=== PATIENT | male | born 1950 | race Caucasian/White ===

== ENCOUNTER 2018-12-27 16:52 | Emergency (ER) | payer BC ==
--- OUTSIDE RECORDS SUMMARY | 2018-12-27 16:54 | XMS REPORT | Clinical Summary ---
:1950 Author Organization [facility] Address [address] [place] [address] Care Team Providers Name Role Phone Aryan Samuels MD Primary Care Provider Allergies No Known Allergies Medications Medication Sig Dispensed Refills Start Date End Date Status ezetimibe (ZETIA) Take 10 mg by 0 Active 10 mg tablet mouth daily. olmesartan Take 40 mg by 0 Active (BENICAR) 40 MG mouth daily. tablet simvastatin Take 80 mg by 0 Active (ZOCOR) 80 MG mouth nightly. tablet FLUCELVAX QUAD INJECT BY 0 06/05/2017 Active 4457-9225 60 mcg PHARMACIST LEFT (15 mcg x 4)/0.5 ARM mL suspension vaccine metoprolol TAKE 1 TABLET BY 180 tablet 3 08/10/2018 Active tartrate MOUTH 2 TIMES A (LOPRESSOR) 50 mg DAY. tablet clopidogrel TAKE 1 TABLET BY 90 tablet 1 08/10/2018 Active (PLAVIX) 75 mg MOUTH EVERY DAY tablet clopidogrel Take 1 tablet 90 tablet 3 02/04/2017 (PLAVIX) 75 mg (75 mg total) by 8 tabletIndications mouth daily. : PAD (peripheral artery disease) (HCC), Abdominal aortic aneurysm (AAA) without rupture (HCC) metoprolol Take 1 tablet 180 tablet 3 08/05/2017 Discontinued tartrate (50 mg total) by 8 (LOPRESSOR) 50 mg mouth 2 (two) tablet times a day. clopidogrel Take 1 tablet 90 tablet 1 02/17/2018 Discontinued (PLAVIX) 75 mg (75 mg total) by 8 tablet mouth daily. Active Problems Problem Noted Date Abdominal aortic aneurysm (AAA) without rupture 02/04/2017 Essential hypertension 02/04/2017 CAD in [place] artery 02/04/2017 PAD (peripheral artery disease) 02/04/2017 Encounters Date Type Specialty Care Team Description 08/10/2018 Refill Cardiology Oscar Bautista MD Med Refill 08/04/2018 Office Visit Cardiology Oscar Bautista MD PAD (peripheral artery disease) (HCC) (Primary Dx) 02/17/2018 Orders Only Cardiology Twila Pack MA after 12/26/2017 Family History Relation Name Status Comments Father Mother Social History Tobacco Use Types Packs/Day Years Used Date Current Some Day Smoker Smokeless Tobacco: Never Used Alcohol Use Drinks/Week oz/Week Comments No Sex Assigned at Date Recorded Not on file Job Start Date Occupation Industry Not on file Not on file Not on file Travel History Travel Start Travel End No recent travel history available. Last Filed Vital Signs Vital Sign Reading Time Taken Blood Pressure 150/70 08/04/2018 11:31 AM [employer] Pulse 72 08/04/2018 11:31 AM [employer] Temperature - - Respiratory Rate - - Oxygen Saturation - - Inhaled Oxygen Concentration - - Weight 93.9 kg (207 lb) 08/04/2018 11:31 AM [employer] Height 177.8 cm (5' 10") 08/04/2018 11:31 AM [employer] Body Mass Index 29.7 08/04/2018 11:31 AM [employer] Plan of Treatment Date Type Specialty Care Team Description 08/10/2019 Office Visit Cardiology Oscar Bautista MD [address] [address] Health Maintenance Due Date Last Done Comments COLON CANCER SCREENING 2000 SHINGLES VACCINES (#1) 2000 65+ PNEUMOCOCCAL VACCINE (1 of 2 - PCV13) 12/02/2015 PNEUMOCOCCAL POLYSACCHARIDE VACCINE AGE 65 AND OVER 12/02/2015 INFLUENZA VACCINE 03/25/2019 Procedures Procedure Name Priority Date/Time Associated Diagnosis Comments ECG 12-LEAD Routine 08/04/2018 11:32 AM PAD (peripheral Results for this [employer] artery disease) (HCC) procedure are in the results section. after 12/26/2017 Results ECG 12 lead (08/04/2018 11:32 AM [employer]) Ventricular rate 72 [facility] Atrial rate 72 [facility] ND interval 168 [facility] QRSD interval 90 [facility] QT interval 402 [facility] QTC interval 440 [facility] P axis 1 41 [facility] QRS axis 1 98 [facility] M[facility] T wave axis 63 [facility] M[facility] EKG impression Normal sinus rhythm-Rightward axis-Borderline [facility] M[facility] ECG-In automated comparison with ECG of 04-FEB-2017 09:23,-No significant change was found- Narrative Performed At Performing Organization Address City/State/Zipcode Phone Number [facility] [address] [place] [address] after 12/26/2017 Insurance Payer Benefit Plan / Group Subscriber ID Type Phone Address BCBS BCBS CHOICE PPO/FEDERAL EMPL PPO xxxxxxxxxxxx PPO Advance Directives Patient has advance care planning documents on file. For more information, please contact:Steven Houser[address] [place] [address]
[2018-12-27 17:50] LABS: Absolute Lymphocytes (CBC) 1.5 K/uL (0.7-4.9); Absolute Monocytes 0.7 K/uL (0.1-1.3); Absolute Neutrophil 6.6 K/uL (1.8-8.0); Basophils % 0.4 % (0-1.3); Eosinophils % 2.1 % (0-4.4); Hematocrit 40.8 % (39.6-49.0); Lymphocytes % 16.7 % (15.3-44.8); MPV 8.6 fL (7.6-11.3); Monocytes % 8.2 % (3.3-12.3); RBC Red Blood Cell Count 4.47 M/uL (4.33-5.43)
[2018-12-27 18:02] LABS: Protime INR 1.02
[2018-12-27] MEDS ORDERED: NA CHLORIDE 0.9% 1,000 ML ONE (18:02)
[2018-12-27] MEDS ORDERED: FAMOTIDINE 20 MG/2 ML VIAL IV ONE (18:02)
[2018-12-27 18:09] LABS: ALT/SGPT 31 U/L (12-78); AST/SGOT 24 U/L (15-37); Albumin 3.7 g/dL (3.4-5.0); Alkaline Phosphatase 70 U/L (45-117); BUN Blood Urea Nitrogen 17 mg/dL (7-18); Bicarbonate 25 mmol/L (21-32); Bilirubin Direct 0.2 mg/dL (0-0.2); Bilirubin Total 0.8 mg/dL (0.2-1.0); Glucose Level 116 mg/dL (74-106); Lipase 185 U/L (73-393); Magnesium 1.8 mg/dL (1.8-2.4); NT PRO-BNP 91 pg/mL (<125); Potassium 3.9 mmol/L (3.5-5.1); Protein, Total 7.3 g/dL (6.4-8.2); Sodium Level 140 mmol/L (136-145); Troponin (Emerg Dept Use Only) < 0.02 ng/mL (0.0-0.045)
--- NOTE | 2018-12-27 18:45 | ER ---
Nurse's Notes [facility] Name: Km Lizarraga Age: 68 yrs Sex: Male : 1950 Arrival Date: 12/27/2018 Time: 16:53 Bed 5 Private MD: Booker Samuels C Diagnosis: Abdominal tenderness;Functional dyspepsia;Cholelithiasis Presentation: 12/27 17:05 Presenting complaint: Patient states: "I was sitting on the patio watching the [place] aj1 and I started to have pain right here (points to epigastric area) then the pain got worse and worse and I started sweating" Patient denies shortness of breath, but his states that he looked short of breath at the time. Denies palpitations. Transition of care: patient was not received from another setting of care. Onset of symptoms was December 27, 2018 at 16:30. Risk Assessment: Do you want to hurt yourself or someone else? Patient reports no desire to harm self or others. Initial Sepsis Screen: Does the patient meet any 2 criteria? No. Patient's initial sepsis screen is negative. Does the patient have a suspected source of infection? No. Patient's initial sepsis screen is negative. Care prior to arrival: None. 17:05 Method Of Arrival: Ambulatory aj1 17:05 Acuity: RAMSES 2 aj1 Triage Assessment: 17:08 General: Appears in no apparent distress. comfortable, Behavior is calm, cooperative, aj1 appropriate for age. Pain: Complains of pain in epigastric area Pain does not radiate. Pain currently is 1 out of 10 on a pain scale. Neuro: Level of Consciousness is awake, alert, obeys commands. Cardiovascular: Patient's skin is warm and dry. Respiratory: Airway is patent Respiratory effort is even, unlabored, Respiratory pattern is regular, symmetrical. Historical: - Allergies: 17:08 No Known Allergies; aj1 - PMHx: 17:08 Hypertension; Hyperlipidemia; stents in leg; aj1 - Immunization history:: Flu vaccine is up to date. - Social history:: Smoking status: Patient uses tobacco products, smokes two packs cigarettes per day. - Ebola Screening: : Patient denies travel to an Ebola-affected area in the 21 days before illness onset. - Family history:: not pertinent. Screenin:24 Abuse screen: Denies threats or abuse. Nutritional screening: No deficits noted. ae3 Tuberculosis screening: No symptoms or risk factors identified. Fall Risk None identified. Assessment: 17:15 General: Appears in no apparent distress. comfortable, unkempt, Behavior is calm, ae3 cooperative. Pain: Denies pain. Complains of pain in epigastric area. Neuro: Level of Consciousness is awake, alert, obeys commands, Oriented to person, place, time, situation, Appropriate for age Patient states he no longer has pain but the pain was "very unusual for me". . Cardiovascular: Patient's skin is warm and dry. 17:15 Respiratory: Airway is patent Respiratory effort is even, unlabored, Respiratory ae3 pattern is regular, symmetrical. GI: Abdomen is round distended, Bowel sounds present X 4 quads. Abd is soft and non tender X 4 quads. GI: Patient currently denies bloody stool, constipation, diarrhea, nausea. : No signs and/or symptoms were reported regarding the genitourinary system. EENT: wears glasses.. Derm: Skin is dry, Skin temperature is warm. Musculoskeletal: No signs and/or symptoms reported regarding the musculoskeletal system. 17:55 Reassessment: Buttonhole Maker at bedside. ae3 Vital Signs: 17:08 BP 135 / 86; Pulse 82; Resp 18; Temp 98.3; Pulse Ox 100% on R/A; Weight 90.72 kg (R); aj1 Height 5 ft. 10 in. (177.80 cm) (R); 18:28 BP 142 / 70; Pulse 76; Resp 22; Pulse Ox 93% on R/A; ae3 17:08 Body Mass Index 28.70 (90.72 kg, 177.80 cm) aj1 ED Course: 16:53 Patient arrived in ED. as 16:53 Booker Samuels MD is Private Physician. as 17:07 Triage completed. aj1 17:08 Arm band placed on Patient placed in an exam room. aj1 17:10 Brad Tracey MD is Attending Physician. [facility] 17:30 Inserted saline lock: 20 gauge in right antecubital area, using aseptic technique. ae3 Blood collected. 17:40 XRAY Chest (1 view) In Process Unspecified. EDMS 17:46 Bed in low position. Call light in reach. Side rails up X 1. Adult w/ patient. Cardiac ae3 monitor on. Pulse ox on. NIBP on. Pillow given. 18:00 Ultrasound completed. Patient tolerated well. Notified ED Physician wandy. sg3 18:43 Booker Samuels MD is Referral Physician. chuck 18:43 Mary Jo Linares MD is Referral Physician. chuck 18:44 Referral Physician role handed off by Mary Jo Linares MD chuck 18:44 Cheko Fleming MD is Referral Physician. chuck 19:16 No provider procedures requiring assistance completed. IV discontinued, intact, ae3 bleeding controlled, No redness/swelling at site. Pressure dressing applied. 19:18 US Abdomen Limited In Process Unspecified. EDMS Administered Medications: Discontinued: NS 0.9% 1000 ml IV at 125 ml/hr continuous 17:54 Drug: NS 0.9% 1000 ml Route: IV; Rate: 125 ml/hr; Site: right antecubital; ae3 19:18 Follow up: Response: No adverse reaction; IV Status: Order to discontinue infusion; IV ae3 Intake: 300ml 17:55 Drug: Pepcid 20 mg Route: IVP; Site: right antecubital; ae3 18:30 Follow up: Response: No adverse reaction ae3 Intake: 19:18 IV: 300ml; Total: 300ml. ae3 Outcome: 18:44 Discharge ordered by . chuck 19:17 Discharged to home ambulatory, with significant other. ae3 19:17 Condition: stable 19:17 Discharge instructions given to patient, significant other, Instructed on discharge instructions, follow up and referral plans. Demonstrated understanding of instructions, Prescriptions given X 1. 19:17 Patient left the ED. ae3 Signatures: Dispatcher [employer] EDCarly Delgadillo RN RN aj1 Brad Tracey MD MD cha Martinez, Amelia as Godinez, Dorothy sg3 Iqra Ritchie ae3 Corrections: (The following items were deleted from the chart) 18:21 17:15 Cardiovascular: ae3 ae3
--- NOTE | 2018-12-27 18:46 | EDPHYS ---
Physician Documentation [facility] Name: Km Lizarraga Age: 68 yrs Sex: Male : 1950 Arrival Date: 12/27/2018 Time: 16:53 Bed 5 Private MD: Booker Samuels C ED Physician Brad Tracey HPI: 12/27 17:30 This 68 yrs old Male presents to ER via Ambulatory with complaints of chuck Epigastric Pain. 17:30 The patient presents with abdominal pain in the epigastric area. Onset: The chuck symptoms/episode began/occurred just prior to arrival, today. The symptoms do not radiate. Associated signs and symptoms: none. The symptoms are described as constant, crampy. Modifying factors: The symptoms are alleviated by nothing, the symptoms are aggravated by nothing. Severity of pain: At its worst the pain was moderate in the emergency department the pain has resolved and did so just prior to arrival. The patient has not experienced similar symptoms in the past. Historical: - Allergies: 17:08 No Known Allergies; aj1 - PMHx: 17:08 Hypertension; Hyperlipidemia; stents in leg; aj1 - Immunization history:: Flu vaccine is up to date. - Social history:: Smoking status: Patient uses tobacco products, smokes two packs cigarettes per day. - Ebola Screening: : Patient denies travel to an Ebola-affected area in the 21 days before illness onset. - Family history:: not pertinent. ROS: 17:30 Constitutional: Negative for fever, chills, and weight loss, Eyes: Negative for injury, chuck pain, redness, and discharge, ENT: Negative for injury, pain, and discharge, Neck: Negative for injury, pain, and swelling, Cardiovascular: Negative for chest pain, palpitations, and edema, Respiratory: Negative for shortness of breath, cough, wheezing, and pleuritic chest pain, Back: Negative for injury and pain, : Negative for injury, bleeding, discharge, and swelling, MS/Extremity: Negative for injury and deformity, Skin: Negative for injury, rash, and discoloration, Neuro: Negative for headache, weakness, numbness, tingling, and seizure, Psych: Negative for depression, anxiety, suicide ideation, homicidal ideation, and hallucinations, Allergy/Immunology: Negative for hives, rash, and allergies, Endocrine: Negative for neck swelling, polydipsia, polyuria, polyphagia, and marked weight changes, Hematologic/Lymphatic: Negative for swollen nodes, abnormal bleeding, and unusual bruising. 17:30 Abdomen/GI: Positive for abdominal pain, of the epigastric area. Exam: 17:30 Constitutional: This is a well developed, well nourished patient who is awake, alert, chuck and in no acute distress. Head/Face: Normocephalic, atraumatic. Eyes: Pupils equal round and reactive to light, extra-ocular motions intact. Lids and lashes normal. Conjunctiva and sclera are non-icteric and not injected. Cornea within normal limits. Periorbital areas with no swelling, redness, or edema. ENT: Nares patent. No nasal discharge, no septal abnormalities noted. Tympanic membranes are normal and external auditory canals are clear. Oropharynx with no redness, swelling, or masses, exudates, or evidence of obstruction, uvula midline. Mucous membranes moist. Neck: Trachea midline, no thyromegaly or masses palpated, and no cervical lymphadenopathy. Supple, full range of motion without nuchal rigidity, or vertebral point tenderness. No Meningismus. Chest/axilla: Normal chest wall appearance and motion. Nontender with no deformity. No lesions are appreciated. Cardiovascular: Regular rate and rhythm with a normal S1 and S2. No gallops, murmurs, or rubs. Normal PMI, no JVD. No pulse deficits. Respiratory: Lungs have equal breath sounds bilaterally, clear to auscultation and percussion. No rales, rhonchi or wheezes noted. No increased work of breathing, no retractions or nasal flaring. Abdomen/GI: Soft, non-tender, with normal bowel sounds. No distension or tympany. No guarding or rebound. No evidence of tenderness throughout. Back: No spinal tenderness. No costovertebral tenderness. Full range of motion. Male : Normal genitalia with no discharge or lesions. Skin: Warm, dry with normal turgor. Normal color with no rashes, no lesions, and no evidence of cellulitis. MS/ Extremity: Pulses equal, no cyanosis. Neurovascular intact. Full, normal range of motion. Neuro: Awake and alert, GCS 15, oriented to person, place, time, and situation. Cranial nerves II-XII grossly intact. Motor strength 5/5 in all extremities. Sensory grossly intact. Cerebellar exam normal. Normal gait. Psych: Awake, alert, with orientation to person, place and time. Behavior, mood, and affect are within normal limits. Vital Signs: 17:08 BP 135 / 86; Pulse 82; Resp 18; Temp 98.3; Pulse Ox 100% on R/A; Weight 90.72 kg (R); aj1 Height 5 ft. 10 in. (177.80 cm) (R); 18:28 BP 142 / 70; Pulse 76; Resp 22; Pulse Ox 93% on R/A; ae3 17:08 Body Mass Index 28.70 (90.72 kg, 177.80 cm) aj1 MDM: 17:10 Patient medically screened. [facility] 17:32 Data reviewed: vital signs, nurses notes, lab test result(s), EKG, radiologic studies, [facility] CT scan, plain films, ultrasound. 12/27 17:15 Order name: Basic Metabolic Panel; Complete Time: 18:10 [facility] 12/27 17:15 Order name: CBC with Diff; Complete Time: 18:09 [facility] 12/27 17:15 Order name: LFT's; Complete Time: 18:10 [facility] 12/27 17:15 Order name: Magnesium; Complete Time: 18:10 [facility] 12/27 17:15 Order name: NT PRO-BNP; Complete Time: 18:10 [facility] 12/27 17:15 Order name: PT-INR; Complete Time: 18:09 [facility] 12/27 17:15 Order name: Troponin (emerg Dept Use Only); Complete Time: 18:10 [facility] 12/27 17:15 Order name: XRAY Chest (1 view) [facility] 12/27 17:15 Order name: EKG; Complete Time: 17:16 [facility] 12/27 17:15 Order name: Cardiac monitoring; Complete Time: 17:15 [facility] 12/27 17:15 Order name: Lipase; Complete Time: 18:10 [facility] 12/27 17:30 Order name: US Abdomen Limited [facility] 12/27 17:15 Order name: EKG - Nurse/Tech; Complete Time: 17:15 [facility] 12/27 17:15 Order name: IV Saline Lock; Complete Time: 17:45 [facility] 12/27 17:15 Order name: Labs collected and sent; Complete Time: 17:45 [facility] 12/27 17:15 Order name: O2 Per Protocol; Complete Time: 17:16 [facility] 12/27 17:15 Order name: O2 Sat Monitoring; Complete Time: 17:16 [facility] 12/27 17:15 Order name: Urine Dipstick-Ancillary (obtain specimen) chuck Administered Medications: Discontinued: NS 0.9% 1000 ml IV at 125 ml/hr continuous 17:54 Drug: NS 0.9% 1000 ml Route: IV; Rate: 125 ml/hr; Site: right antecubital; ae3 19:18 Follow up: Response: No adverse reaction; IV Status: Order to discontinue infusion; IV ae3 Intake: 300ml 17:55 Drug: Pepcid 20 mg Route: IVP; Site: right antecubital; ae3 18:30 Follow up: Response: No adverse reaction ae3 Disposition: 12/27/18 18:44 Discharged to Home. Impression: Abdominal tenderness, Functional dyspepsia, Cholelithiasis. - Condition is Stable. - Discharge Instructions: Abdominal Pain, Adult, Cholelithiasis, Cholelithiasis, [id number], Abdominal Pain, Adult, [id number]. - Prescriptions for Pepcid 20 mg Oral Tablet - take 1 tablet by ORAL route every 12 hours for 10 days; 20 tablet. - Medication Reconciliation Form, Thank You Letter, Antibiotic Education, Prescription Opioid Use form. - Follow up: Booker Samuels; When: 2 - 3 days; Reason: Recheck today's complaints, Continuance of care, Re-evaluation by your physician. Follow up: ; When: 2 - 3 days; Reason: Recheck today's complaints, Continuance of care, Re-evaluation by your physician. Follow up: Cheko Fleming MD; When: 2 - 3 days; Reason: Recheck today's complaints, Re-evaluation by your physician. - Problem is new. - Symptoms have improved. Signatures: Dispatcher [employer] EDCarly Delgadillo RN RN aj1 Anderson, Corey, MD MD cha Elliot, Andie ae3 Corrections: (The following items were deleted from the chart) 18:44 18:44 12/27/2018 18:44 Discharged to Home. Impression: Abdominal tenderness; Functional chuck dyspepsia; Cholelithiasis. Condition is Stable. Discharge Instructions: Abdominal Pain, Adult, Abdominal Pain, Adult, [id number]. Prescriptions for Pepcid 20 mg Oral Tablet - take 1 tablet by ORAL route every 12 hours for 10 days; 20 tablet. and Forms are Medication Reconciliation Form, Thank You Letter, Antibiotic Education, Prescription Opioid Use. Follow up: Booker Samuels; When: 2 - 3 days; Reason: Recheck today's complaints, Continuance of care, Re-evaluation by your physician. Follow up: Mary Jo Linares; When: 2 - 3 days; Reason: Recheck today's complaints, Continuance of care, Re-evaluation by your physician. Problem is new. Symptoms have improved. chuck 19:17 18:44 12/27/2018 18:44 Discharged to Home. Impression: Abdominal tenderness; Functional ae3 dyspepsia; Cholelithiasis. Condition is Stable. Discharge Instructions: Abdominal Pain, Adult, Abdominal Pain, Adult, [id number]. Prescriptions for Pepcid 20 mg Oral Tablet - take 1 tablet by ORAL route every 12 hours for 10 days; 20 tablet. and Forms are Medication Reconciliation Form, Thank You Letter, Antibiotic Education, Prescription Opioid Use. Follow up: Booker Samuels; When: 2 - 3 days; Reason: Recheck today's complaints, Continuance of care, Re-evaluation by your physician. Follow up: Cheko Fleming; When: 2 - 3 days; Reason: Recheck today's complaints, Re-evaluation by your physician. Problem is new. Symptoms have improved. chuck
--- NOTE | 2018-12-27 19:10 | RAD REPORT ---
EXAM DESCRIPTION: RAD - Chest Single View - 12/27/2018 5:40 pm CLINICAL HISTORY: Chest pain, epigastric pain COMPARISON: November 2017 TECHNIQUE: AP portable chest image was obtained 1736 hour . FINDINGS: No acute focal lung parenchymal process. Interstitial markings are mildly prominent but no t clearly different. Heart and vasculature are normal. No measurable pleural effusion and no pneumoth orax. No acute bony abnormality seen. No acute aortic findings suspected. IMPRESSION: No acute cardiopulmonary process. Chest findings are not clearly different from November 2017.
--- NOTE | 2018-12-27 19:56 | RAD REPORT ---
EXAM DESCRIPTION: US - Abdomen Exam Limited - 12/27/2018 7:19 pm CLINICAL HISTORY: Abdominal pain COMPARISON: Ultrasound study May 2013 FINDINGS: No normal fluid-filled gallbladder is identified. Patient indicates that he is not undergo ne a cholecystectomy. Multiple gallstones are seen on the 2013 study. Echogenic foci with dense poste rior acoustic shadowing seen in the gallbladder fossa. Patient most likely has a contracted or partia lly filled gallbladder filled with multiple gallstones. No pericholecystic fluid. Common bile duct is normal with no common duct stone identified. IMPRESSION: Contracted or partially filled gallbladder filled with gallstones. No wall thickening, pericholecystic fluid or biliary abnormality.
--- NOTE | 2018-12-28 08:47 | EKG ---
Test Date: 2018-12-27 Test Time: 17:15:59 Special Programs Director: BRENDA MEASUREMENT RESULTS: Intervals: Rate: 85 MA: 164 QRSD: 86 QT: 380 QTc: 452 [place]: P: -6 MA: 164 QRS: 79 T: 38 INTERPRETIVE STATEMENTS: Normal sinus rhythm Normal ECG Compared to ECG 06/28/2015 13:54:19 No significant changes Electronically Signed On 12-28-18 08:46:30 CDT by Jerardo Donis
== END 2018-12-27 19:17 | disposition home or self-care (01) ==
LOC: ER 16:52
DX: K80.20 Calculus of gallbladder without cholecystitis without obstruction (principal); K30 Functional dyspepsia; F17.210 Nicotine dependence, cigarettes, uncomplicated
CPT/HCPCS: 36415; 71045; 76705; 80048; 80076; 83690; 83735; 83880; 84484; 85025; 85610; 93005; 96361; 96374; 99284; J7030

== ENCOUNTER 2019-02-10 06:13 | Day surgery (SDC) | payer BC ==
[2019-02-08 15:08] LABS: Absolute Lymphocytes (CBC) 1.2 K/uL (0.7-4.9); Basophils % 0.4 % (0-1.3); Eosinophils % 2.2 % (0-4.4); Lymphocytes % 16.7 % (15.3-44.8); MPV 8.4 fL (7.6-11.3); RBC Red Blood Cell Count 4.48 M/uL (4.33-5.43)
[2019-02-08 15:19] LABS: Potassium 3.7 mmol/L (3.5-5.1)
[2019-02-08 15:31] LABS: Albumin 3.8 g/dL (3.4-5.0); Bilirubin Direct 0.2 mg/dL (0-0.2); Bilirubin Total 0.8 mg/dL (0.2-1.0); Protein, Total 7.5 g/dL (6.4-8.2)
--- OUTSIDE RECORDS SUMMARY | 2019-02-10 06:18 | XMS REPORT | Clinical Summary ---
:1950 Author Organization [facility] Address [address] [place] [address] Care Team Providers Name Role Phone Aryan [...] FLUCELVAX QUAD INJECT BY 0 06/05/2017 Active 2904-6082 60 mcg PHARMACIST LEFT (15 mcg x 4)/0.5 ARM mL suspension vaccine metoprolol TAKE 1 TABLET BY 180 tablet 3 08/10/2018 Active tartrate MOUTH 2 TIMES A (LOPRESSOR) 50 mg DAY. tablet clopidogrel TAKE 1 TABLET BY 90 tablet 1 08/10/2018 Active (PLAVIX) 75 mg MOUTH EVERY DAY tablet metoprolol Take 1 tablet 180 tablet 3 08/05/2017 Discontinued tartrate (50 mg total) by 8 (LOPRESSOR) 50 mg mouth 2 (two) tablet times a day. clopidogrel Take 1 tablet 90 tablet 1 02/17/2018 Discontinued (PLAVIX) 75 mg (75 mg total) by 8 tablet mouth daily. Active Problems Problem Noted Date Abdominal aortic aneurysm (AAA) without rupture 02/04/2017 Essential hypertension 02/04/2017 CAD in [place] artery 02/04/2017 PAD (peripheral artery disease) 02/04/2017 Encounters Date Type Specialty Care Team Description 01/07/2019 Telephone Cardiology Woodrow Win MA cardiac clearance 01/07/2019 Orders Only Cardiology Woodrow Win MA Pre-operative clearance (Primary Dx) 08/10/2018 Refill Cardiology Oscar Bautista MD Med Refill 08/04/2018 Office Visit Cardiology Oscar Bautista MD PAD (peripheral artery disease) ([facility]) (Primary Dx) 02/17/2018 Orders Only Cardiology Twila Pack MA after 02/09/2018 Family History Relation Name Status Comments Father [...] Vital Sign Reading Time Taken Blood Pressure 154/72 01/13/2019 2:10 PM CDT Pulse 64 01/13/2019 2:10 PM CDT Temperature - - Respiratory Rate - - Oxygen Saturation 94% 01/13/2019 2:10 PM CDT Inhaled Oxygen Concentration - - Weight 89.4 kg (197 lb) 01/13/2019 2:10 PM CDT Height 177.8 cm (5' 10") 01/13/2019 2:10 PM CDT Body Mass Index 28.27 01/13/2019 2:10 PM CDT Plan of Treatment Date Type Specialty Care Team Description 08/10/2019 Office Visit Cardiology Oscar Bautista MD [address] [address] Health Maintenance Due Date Last Done Comments COLONOSCOPY SCREENING 2000 SHINGLES VACCINES (#1) 2000 65+ PNEUMOCOCCAL VACCINE (1 of 2 - PCV13) 12/02/2015 INFLUENZA VACCINE 03/25/2019 Procedures Procedure Name Priority Date/Time Associated Diagnosis Comments CV TREADMILL STRESS Routine 01/13/2019 2:27 PM Pre-operative Results for this TEST CDT clearance procedure are in the results section. ECG 12-LEAD Routine 08/04/2018 11:32 AM PAD (peripheral Results for this PLASTIC ROLLER artery disease) procedure are in (HCC) the results section. after 02/09/2018 Results Cv stress test (01/13/2019 2:27 PM CDT) Resting HR 63 [facility] Resting BP 154 [facility] Peak MET Achieved 1.4 [facility] Protocol Name [facility] Time in Exercise 00:04:49 [facility] Phase Max Systolic BP 210 [facility] Max Diastolic BP 83 [facility] Max Heart Rate 133 [facility] Max Predicted Heart 152 [facility] Rate Target HR Formula (220 - Age)*85% [facility] Test Indication Pre Operative [facility] Clearance Arrhy During Ex PVCS [facility] ECG Interp Before EX Normal [facility] ECG Interp During Ex none [facility] Ex Summary Comment Negative for [facility] inducible ischemia Chest Pain Statement none [facility] Overall HR Response normal [facility] to Exercise Overall BP Response HYPERTENSIVE [facility] To Exercise Reason for Fatigue [facility] Termination Stress Test -PVCs that develop [facility] Impression with exercise-Electronical ly Signed By Bina Newman MD ([id number]) on 01/19/2019 6:46:01 PM Specimen Narrative Performed At Performing Organization Address City/[facility] [address] [place] [address] ECG 12 lead (08/04/2018 11:32 AM PLASTIC ROLLER) Ventricular rate 72 [facility] Atrial rate 72 [facility] [place] interval 168 [facility] QRSD interval 90 [facility] QT interval 402 [facility] QTC interval 440 [facility] P axis 1 41 [facility] QRS axis 1 98 [facility] T wave axis 63 [facility] EKG impression Normal sinus [facility] rhythm-Rightward axis-Borderline ECG-In automated comparison with ECG of 04-FEB-2017 09:23,-No significant change was found- Specimen Narrative Performed At Performing Organization Address City/State[facility] Phone Number [facility] [address] [place] [address] after 02/09/2018 Advance Directives Patient has advance care planning documents on file. For more information, please contact:Steven Houser[address] [place] [address]
[2019-02-10] MEDS ORDERED: Ringers Lactate 1,000 ML IV ONE ×2 (06:37→08:24)
[2019-02-10] MEDS ORDERED: PROPOFOL 200 MG/20 ML VIAL IV ONE (07:26)
[2019-02-10] MEDS ORDERED: FENTANYL CITR 100 MCG/2 ML ONE (07:26)
[2019-02-10] MEDS ORDERED: MIDAZOLAM HCL 2 MG/2 ML INJ ONE (07:26)
[2019-02-10] MEDS ORDERED: LIDOCAINE 2% MPF 5 ML VIAL ONE (07:26)
[2019-02-10] MEDS ORDERED: ROCURONIUM 50 MG/5 ML VIAL IV ONE (07:28)
[2019-02-10] MEDS ORDERED: CEFOXITIN/SWI 1gm 1 GM/10 ML SYR ONE (07:43)
[2019-02-10] MEDS ORDERED: DEXAMETHASONE 4 MG/ML VIAL ONE (08:23)
[2019-02-10] MEDS ORDERED: ONDANSETRON 4 MG/2 ML VIAL ONE (08:23)
[2019-02-10] MEDS ORDERED: GLYCOPYRROLATE 0.2 MG/ML SYR ONE (08:36)
[2019-02-10] MEDS ORDERED: NEOSTIGMINE 1 MG/ML -10 ML VIAL ONE (08:42)
--- NOTE | 2019-02-10 09:00 | P.BOP ---
Preoperative diagnosis: symptomatic cholelithiasis, cholecystitis, biliary dyskinesia Postoperative diagnosis: same Primary procedure: Laparoscopic cholecystectomy Process Server: Raina Tolbert) Estimated blood loss: <10cc Specimen: gb Findings: as above Anesthesia: General Complications: None Transferred to: Recovery Room Condition: Good
[2019-02-10] MEDS ORDERED: CODEINE 30MG/APAP 300MG TAB PO ONE (09:50)
[2019-02-10] MEDS ORDERED: CODEINE 30MG/APAP 300MG TAB ONE (09:59)
--- NOTE | 2019-02-10 16:09 | DS ---
Date of Discharge: 02/10/2019 Diagnoses: Symptomatic cholelithiasis, cholecystitis, biliary dyskinesia, right upper quadrant pain. Procedure: Laparoscopic cholecystectomy. Disposition: Home. Discharge Instructions: Activity as tolerated. No heaving lifting. Follow up in my office in 1 pan[address] moore. Call for appointment [phone]. Keep area dry for 48 hours, then may shower. Keep Steri-Strips i ntact. Medications: Include Tylenol No. 3 q.4 hours p.r.n. pain, Augmentin 875 p.o. q.12. CHARLINE/DARWIN Voice ID: [id number] Report ID: [id number]
--- NOTE | 2019-02-10 16:09 | OP ---
Date of Procedure: 02/10/2019 Surgeon: Sohail Dubois MD [employer] Operator: NABIL Walton. Preoperative Diagnoses: Symptomatic cholelithiasis, cholecystitis, biliary dyskinesia, right upper q uadrant pain. Postoperative Diagnoses: Symptomatic cholelithiasis, cholecystitis, biliary dyskinesia, right upper quadrant pain. Procedure: Laparoscopic cholecystectomy. Estimated Blood Loss: Less than 10 cc. Specimen: Gallbladder. Findings: As above. Anesthesia: General plus local. Indications: This is a case of a 68-year-old patient with above condition. Fully explained the bene fits, alternatives, and risks of laparoscopic, possible open cholecystectomy, which include but are n ot limited to infection, bleeding, damage to adjacent structures, anesthesia complication, choledocho lithiasis, bile leak, pancreatitis, NE, and even . He also understands this may not relieve any symptoms. This might need more than one surgical intervention. He understood, signed a consent. Procedure In Detail: The patient was brought to the operating room, placed in supine position. Anes thesia was done without complication. Abdominal area was prepped and draped in usual sterile fashion . Marcaine 0.5% was injected for local anesthetic, followed by sharp incision of the skin in the inf raumbilical region. Incision was carried down to fascia, which was opened under direct vision. Emelia toneum was encountered, opened under direct vision. Vicryl #1 placed inside the fascia. Dayana troc ar was carefully introduced. Pneumoperitoneum was obtained. I placed 3 more trocars, 5 mm each one of them, 1 in the epigastric area, 2 in the right upper quadrant using the same technique, which cons isted of local anesthetic, sharp incision of the skin, and introduction of the trocars under direct v ision. This allowed me to put a grasper in the fundus of the gallbladder, another grasper in the inf undibulum, retracted the gallbladder in the inferolateral fashion, exposed the triangle of Calot and obtained critical view of safety. The cystic duct and cystic artery were clearly isolated free circu mferentially and a connection between those and the gallbladder were clearly identified. I proceeded to ligate those by using at least 3 clips proximal, 1 clip distal, ligation in middle. Same was don e with the cystic artery. No bile leak. No bleeding. The gallbladder was removed from liver using Bovie cauterizer and removed from abdominal cavity using the EndoCatch through the umbilical incision . The area was inspected once again. No bile leak. No bleeding. At that moment, I proceeded to re move the trocars under direct vision. Deflated the pneumoperitoneum. Closed the fascia with #1 Vicr yl. Irrigated subcutaneous tissue, closed that with chromic and the skin with 3-0 chromic in a subcu ticular fashion and Steri-Strips on top. Sponge count and instrument counts were correct. The patie nt tolerated the procedure well. The patient was sent to Recovery in stable condition. CHARLINE/DARWIN Voice ID: [id number] Report ID: [id number]
== END 2019-02-10 10:02 | disposition home or self-care (01) ==
LOC: OR 06:13
PROVIDERS: ATTEND Surgery
PROC: 0FT44ZZ Resection of Gallbladder, Percutaneous Endoscopic Approach (ICD-10-PCS; principal; 2019-02-10 07:30)
DX: K80.10 Calculus of gallbladder with chronic cholecystitis without obstruction (principal); I10 Essential (primary) hypertension; F17.210 Nicotine dependence, cigarettes, uncomplicated; Z79.899 Other long term (current) drug therapy
CPT/HCPCS: 36415; 80048; 80076; 82150; 83690; 85025; 88304; J2250; J2405; J2704; J2710; J3010

== ENCOUNTER 2021-07-12 11:12 | Inpatient (IN) | payer BC, OTHER ==
--- NOTE | 2021-07-12 13:10 | R.PREADM ---
PRE-ADMISSION SCREENING FORM SCREENING DATE AND TIME 07/11/2021 12:00 (CERTIFIED VEHICLE FIRE INVESTIGATOR) ANTICIPATED REHAB ADMISSION DATE 07/13/2021 REFERRING FACILITY [facility] REFERRAL DATE AND TIME 07/11/2021 12:00 (CERTIFIED VEHICLE FIRE INVESTIGATOR) REFERRAL ROOM# [id number] ACUTE ADMIT DATE 06/27/2021 Previous Rehabilitation(s): No. ACUTE PUBLIC HEALTH INSPECTOR/DC PARACHUTE LINE TIER Michaela Walters ATTENDING PHYSICIAN Dr. Oswald Cote REFERRING PHYSICIAN Dr. Oswald Cote REHAB FACILITY [facility] CLINICAL LIAISON Tasha Mohamud PHYSICIAN REVIEWER Dr. Don Marshall M.D. MR# [id number] NAME JOANN SANDERS ADDRESS [address] [place] [address] [facility] [id number] DATE OF 1950 AGE 70 SSN# [id number] GENDER male MARITAL STATUS RACE white ADMIT FROM 02 - [facility] PRE-HOSPITAL LIVING SETTING 01 - Home (private home/apt. board/care, assisted living, nursing home, transitional living) HOME TYPE AND DETAILS Type of home: single family house # of steps to enter the residence: 0 # of steps within the residence: 0 # of levels in the residence: 1 PRE-HOSPITAL LIVING WITH Family/Relatives FAMILY SUPPORT Yes PRIMARY FAMILY CONTACT NAME Abena Sanders PRIMARY FAMILY CONTACT PHONE PRIMARY FAMILY CONTACT RELATIONSHIP Spouse PHONE PRIMARY FAMILY CONTACT ON ADM.? no IS PRIMARY FAMILY CONTACT AUTH. REP.? no 1ST EMERGENCY CONTACT Abena Sanders 1ST CONTACT PHONE 1ST CONTACT RELATIONSHIP Spouse PHONE 1ST CONTACT ON ADM. no IS 1ST CONTACT AUTH. REP.? no PHONE 2ND CONTACT ON ADM.? no PATIENT EMPLOYMENT STATUS Retired (for age) PATIENT EMPLOYER No Employer PAYOR INFORMATION: 1ST PAYOR NAME Medicare Part A 1ST PAYOR PHONE [phone] 1ST PAYOR 2ND PAYOR NAME [facility] 2ND PAYOR PHONE 2ND PAYOR INJURY/ILLNESS DUE TO ACCIDENT? No ANOTHER DEMOCRAT RESPONSIBLE? No PRIMARY REHAB/ACUTE DIAGNOSIS: s/p L heart cath 06/27/2021 and Thoraco-abdominal aneurysm repair 07/02/2021 ONSET DATE 06/27/2021 REHAB IMPAIRMENT CATEGORY (SAFIA): 14 Cardiac does NOT meet 60% rule PRIMARY DIAGNOSIS-RELATED SURGERIES: Thoraco-abdominal aneurysm repair 07/02/2021 reconstruction celiac artery 07/02/2021 superior mesenteric artery 07/02/2021 left renal artery 07/02/2021 right renal artery 07/02/2021 Cardiac cath and angiogram - 06/27/2021 Lumbar drain replaced 07/04/2021 INTERVENTIONS: - HTN medication management - CAD Medications Diet plan as ordered by MD. - Safety Awareness Fall bracelet Non slip socks assistance with standing fall prevention Assessment of vitals - Angina Pectoris Routinely assess patient vitals - TAAA Hemodynamic support with pressors and IVFs - per Nephrology report by MD - Acute Blood Loss - Anemia transfusions as needed - per Nephrology report by MD - COPD Supplemental O2 - per Nephrology report by MD - Atelectasis Incentive Spirometry - per pulmonology MD report Bronchopulmonary hygiene - per pulmonology MD report - Hypernatremia Na remains abnormal, encourage to eat and continue fluid restriction - per pulmonology MD report RISK FOR COMPLICATIONS: - Angina Pectoris Routinely assess patient vitals - Pain Clinical staff will assess patient's pain level every shift per protocol to monitor for pain manageme nt effectiveness Educate patient on pain management strategies Medications will be given and the pain level reassessed. Clinical Staff may employ other methods such as: massage, distraction, decrease stimulus, etc. as needed - Respiratory distress Monitor vitals consult respiratory as ordered by MD Educate on breathing exercises Educate on energy conservation Educate on activity pacing - Aspiration Swallowing difficulties per therapy notes. Monitor for signs of aspiration. BACTERIOLOGY TECHNICIAN as ordered by MD - UTI Monitor for frequency, burning, discomfort, or incontinence - CVA Monitor signs and symptoms of stroke - DVT Routine checks/assessments of pt FRANCISCO hose; sequential compression device as needed/prescribed - Skin Breakdown Nursing will assess skin daily using assessment tool and will place on Skin Breakdown Precautions as Indicated per protocol - Falls Educated pt on fall prevention strategies to reduce/eliminate fall risk Patient will be evaluated for Fall Precautions and will be placed on Fall Precautions as indicated pe r protocol. - Impaired Safety Educate patient on safety awareness strategies. Educate patient on safety hazards - Bleeding Monitor lab values - Limb Ischemia Assess circulation each shift Report any changes to MD - Sespsis Monitor lab values SUMMARY OF ACUTE HOSPITALIZATION: Pt. is a 70 yo white male. On 06/27/2021 he was admitted to [facility] with diagnosis s/p L heart cath 06/27/2021 and Tho raco-abdominal aneurysm repair 07/02/2021. His impairment category is Cardiac 09 - Cardiac Disorders (09). Pre-morbidly, Pt. was independent/mod-I in Locomotion, Safety Awareness, Social Cognition, Balance, T ransfers Control, Sphincter Control, Self-Care, Communication, and Endurance; and he had good Locomot ion, Safety Awareness, Social Cognition, Balance, Transfers Control, Sphincter Control, Self-Care, Co mmunication, and Endurance. Currently, he has deficits of Locomotion, Safety Awareness, Balance, Transfers Control, Self-Care, an d Endurance. Pt. is now referred to [facility] for acute in-patient rehabilitation in order to maximize patient's functional independence in activities of daily living, strength, ROM, and mobi lity. Patient has realistic goal of being discharged at assistance level Min A- IND to reside at Home with Family/Relatives. Mr. Joann Sanders is a 70 yo male that lives at home with his . Mr. Sanders reported to OSH on 10/2020 with complaints of SOB and intense back pain. Mr. 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 Cierra oshea underwent thoracoabdominal aorta aneurysm repair with reconstruction of celiac, mesenteric and bila teral renal arteries. Post op complicated by spinal drain incidentally being removed on 07/03/2021, w ith hypotension thereafter and transient lower extremity loss of movement/sensation followed then by pressors/IVF administration and new lumbar drain placement and subsequent improvement in symptomology . Further post op issues include pAF, Ileus (per pulmonology MD report). Mr. Sanders reports (per the rapy note) being independent with all tasks prior to hospitalization. Mr. Sanders is currently workin g with therapy. Per therapy notes, Mr. Sanders lives in a single fe house with his . Mr. Norma rodriguez requires partial assist for increased safety with vc/tc and physical assistance while working on functional ambulation and functional tasks. Mr. Sanders therapy notes indicate deficits with the foll owing: mobility, ROM, strength, endurance, and transfers. While Mr. Sanders lives at home with his wi fe, she is also attending to her own ailments. Mr. Sanders requires intense acute inpatient rehab to address deficits, educate family and patient, maximize independence with ADL's, reducate on safe durand sfers, educate on fall recovery, endurance, breathing exercises, increase UB/LB strength, and prepare patient to safely discharge home. Mr. Sanders will need to learn how to conserve energy during funct ional task and activity pacing to reduce fall risk and wean off of O2. With an interdisciplinary approach by acute IRF, pt. demonstrates great potential and motivation to get stronger, safer, and more independent to return to [facility]. Pt demonstrates a strong need for an intensive team: rehab doctor, nurse, nephrology social worker, and therapist to meet functional and medical goals. It is reasonable and necessary for the patient to come to acute IRF to safely dc. Pt is medically stable but in need of 24 hour nursing, doctor supervision, and oversight while receiving active and ongoing intensive (OT/PT/ST). The patient is reasonably expected to participate in 3 hours of therapy a day/15 hours a week. COVID-19 screening performed. Patient denies a new onset of fever, cough, difficulty breathing, sore throat, body aches and non-allergy nasal congestion in the past 24 hours. Patient denies travel outside of [place] in the past 14 days. Patient denies any contact with someone who has a confirmed diagnosis of or is under investigation for COVID-19 in the past 14 days. Patient has been tested negative for COVID- 19. PAST MEDICAL HISTORY OSH ER CT showed 5.6 cm AAA (2.7 2017) without rupture. 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 Per Endocrinology report by MD. Solid pulmonary nodule measuring around 6 to 8 mm. Per Endocrinology report by . 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 - per vascular surgery note by Hypernatremia PAST SURGICAL HISTORY: Cardiac Cath 06/27/2021 Extubated Thoracoabdominal Aneurysm Repair 07/02/2021 Reconstruction of the celiac SMA and bilateral renal arteries with graft 07/02/2021 Extubated 07/03/2021 Lumbar Drain replaced 07/04/2021 and removed 07/06/2021 Chest tubes removed 07/06/2021 Plantar Fascia Surgery - date not provided Stent - date not provided MEDICATION ALLERGIES: No Known Drug Allergies (NKDA) ENVIRONMENTAL ALLERGIES: No Known - Substance Allergies None Known - Other Allergies None Known CODE STATUS: Full code WEIGHT/HEIGHT/BMI: WEIGHT 174 lbs HEIGHT 5' 10" BMI 25 DIET: - Diet Type Regular - will still have BACTERIOLOGY TECHNICIAN evaluate with MD orders due to swallowing difficulties reported in pt's chart - Diet - Solid Texture Regular - Diet - Liquid Texture Regular - Tube Feed N/A Patient reports back pain, per chart. Pain scale not provided. Nursing will re-assess upon arrival. REVIEW OF SYSTEMS: - Gen Alert and awake Lying in bed No apparent distress Oriented to: person, time, and place - Vital Signs Temperature: 97.9 F SBP/DBP: 152/72 Pulse: 67 Resp: 20 Vital signs stable, afebrile - CVS RRR VITAL SIGNS Temperature: 97.9 F SBP/DBP: 152/72 Pulse: 67 Resp: 20 Vital signs stable, afebrile vitals recorded by endocrinology 07/08/2021 at 0659 MEDICATIONS/TREATMENT: Other- See attached MAR (Medication Administration Record). CURRENT SPHINCTER CONTROL: Pre-hospital bladder status: unspecified # of bladder accidents in the last 7 days prior to screenin Pre-hospital bowel status: unspecified # of bowel accidents in the last 7 days prior to screenin Last Bowel Movement Date: 07/11/2021 CURRENT LOCOMOTION STATUS: distance walked 250 feet with RW DETAILED CURRENT FUNCTIONAL STATUS: - Bladder accident frequency: 7-Ind - No accidents in the past 7 days - Bowel accident frequency: 7-Ind - No accidents in the past 7 days - Walking score based on distance walked: 0(N/A) score based on distance walked: 3(>=150ft) - Wheelchair score based on distance traveled: 0(N/A) QI SCORES: - Self-Care A. Eating 02-Substantial/maximal assistance B. Oral hygiene 05-Setup or clean-up assistance C. Toileting hygiene 03-Partial/moderate assistance E. Shower/bathe self 88-Not attempted due to medical condition or safety concerns F. Upper body dressing 03-Partial/moderate assistance G. Lower body dressing 03-Partial/moderate assistance H. Putting on/taking off footwear 03-Partial/moderate assistance - Mobility A. Roll left and right 03-Partial/moderate assistance B. Sit to lying 03-Partial/moderate assistance C. Lying to sitting on side of bed 03-Partial/moderate assistance D. Sit to stand 03-Partial/moderate assistance E. Chair/yzq-dn-pjxuc transfer 03-Partial/moderate assistance F. Toilet transfer 03-Partial/moderate assistance G. Car transfer 88-Not attempted due to medical condition or safety concerns I. Walk 10 feet 03-Partial/moderate assistance J. Walk 50 feet with two turns 03-Partial/moderate assistance K. Walk 150 feet 03-Partial/moderate assistance L. Walking 10 feet on uneven surfaces 88-Not attempted due to medical condition or safety concerns M. 1 step (curb) 88-Not attempted due to medical condition or safety concerns N. 4 steps 88-Not attempted due to medical condition or safety concerns O. 12 steps 88-Not attempted due to medical condition or safety concerns P. Picking up object 88-Not attempted due to medical condition or safety concerns R. Wheel 50 feet with two turns S. Wheel 150 feet - Bladder and Bowel Bladder continence Bowel continence - Endurance Fair - Balance Fair - Safety Awareness Fair CURRENT FUNC. DEFICITS: Self-Care, Mobility, Endurance, Balance, and Safety Awareness CURRENT / PREVIOUS ASSISTIVE DEVICES: Oxygen Rolling Walker 3L per pulmonology MD report CURRENT USE ASSISTIVE DEVICES: SCDs per MD progress note HISTORY OF FALLS. HAS THE PATIENT HAD TWO OR MORE FALLS IN THE PAST YEAR OR ANY FALL WITH INJURY IN T HE PAST YEAR?: Unknown PRIOR SURGERY. DID THE PATIENT HAVE MAJOR SURGERY DURING THE 100 DAYS PRIOR TO ADMISSION?: Yes THERAPY NOTES FROM ACUTE CARE: [facility] Clinicals.pdf ached. SPECIAL NEEDS: - Safety Concerns Skin breakdown precautions needed due to skin breakdown risk Bed alarm Falls Food intake; pending ST eval. Swallowing precautions indicated on PT note 07/03/2021 - Respiratory Supplemental oxygen: 3 liters Nasal Canula - Pain Medications as prescribed by MD. PRECAUTIONS: - Fall Precaution Bed alarm TABS alarm Wheel chair alarm - Respiratory Monitor and assess patient regularly - Safety Fall risk PATIENT NEEDS ACTIVE AND ONGOING THERAPEUTIC INTERVENTION OF MULTIPLE THERAPY DISCIPLINES, INCLUDING: - Dietary and Nutrition Adequate Nutrition. Nutritional Education. Nutritional Supplements. - Occupational Therapy Cognitive Retraining. Evaluate and Treat. ADL Training. Adaptive Equipment. Community Reintegration. Eating. Household Tasks. Patient/Family Education. Safety Awareness. Transfer Training. UE ROM. UE St rengthening. - Speech Therapy Cognitive Training. Expressive Language Skills. Memory Strategies. Receptive Language Skills. Speech Intelligibility Training. - Physical Therapy Balance Training. Evaluate and Treat. Gait Training. LE ROM. LE Strengthening. Medical Equipment Asse ssment and Evaluation. Mobility Training. Modalities Training. Patient/Family Education. Safety Aware ness. Transfer Training. PATIENT NEEDS CLOSE MEDICAL SUPERVISION BY A REHABILITATION PHYSICIAN FOR: Coordination of Treatment Team Wound Care Medical and Co-Morbidity Management Pain Management Post-Op follow up Respiratory/Airway Management medication management PATIENT REQUIRES 24X7 REHAB NURSING FOR MEDICAL AND FUNCTIONAL MGT. OF THE FOLLOWING DEFICITS: Disease Management Medication Management Patient/Family Education Providing Safe Environment Respiratory/Airway Management Ambulation Pain Management Skin Integrity PATIENT REQUIRES INTENSIVE, COORDINATED INTERDISCIPLINARY APPROACH TO REHAB: Arranging Home Equipment/Services Discharge Planning Family Intervention/Training Cattle Tester/Case Management PATIENT REHAB POTENTIAL: Lina SANDERS is able and expected to receive 3 hours of individualized therapy daily on at least 5 of e very 7 days Lina SANDERS's prognosis for significant practical improvement within a reasonable period of time appea rs Good Expected level of measurable improvement will be of a practical value to Lina SANDERS's functional capa city or adaptations to impairments Has a viable Discharge Plan Medically appropriate; condition is sufficiently stable to participate in intensive rehab program DISCHARGE PLAN: - Estimated Length of Stay (days) 10 to 14 days. - Consensus on plan Discharge plan has been discussed with primary caregiver. Patient/Family is in agreement with the reyes n. Primary caregiver is in agreement with the plan. - Patient/Family Goals Return home independently. - Planned Living Setting Upon Discharge Home, to live with Family/Relatives. Transitional Living. RECOMMENDED CARE LEVEL: IRF RECOMMENDATION DETAILS: Recommended Admission to Comprehensive Rehabilitation Program to Increase Functional [place] SCREENER'S COMPLETENESS CONFIRMATION: - Screening Confirmation The patient data collection on this preadmission screening form is finished PHYSICIANS REVIEW AND ADMISSION DETERMINATION Admit - Based on my review of the Pre-Admission Screening results, in my medical judgment and experie nce, I concur with the findings and recommend admission to [facility], as this patient requires an IRF level of care. SIGNATURE PANEL: Clinical Liaison - [electronically] signed by PEARL Valdovinos on 07/12/2021 at 11:12 (CERTIFIED VEHICLE FIRE INVESTIGATOR) Physician Reviewer - [electronically] signed by Dr. Don Marshall M.D. on 07/12/2021 at 13:10 (CERTIFIED VEHICLE FIRE INVESTIGATOR )
--- OUTSIDE RECORDS SUMMARY | 2021-07-12 22:25 | XMS REPORT | Continuity of Care Document ---
:[address] [facility] t Address [address] [place] [address] Care Team Providers Name Role Phone VALERIA LEGER Attending Clinician Unavailable MD VALERIA LEGER Attending Clinician Unavailable MD Hans VENEGAS Attending Clinician Unavailable THEO Attending Clinician Unavailable THEO Admitting Clinician Unavailable MD Hans VENEGAS Admitting Clinician Unavailable Problems This patient has no known problems. Allergies, Adverse Reactions, Alerts This patient has no known allergies or adverse reactions. Medications This patient has no known medications. Procedures This patient has no known procedures. Encounters Start End Encounter Admission Attending Care Care Encounter Source Date/Time Date/Time Type Type Clinicians Facility Department ID 2021-06-27 2021-07-12 Inpatient [facility] [id number] 20 [place] 00:00:00 00:00:00 VALERIA [address] 2021-06-26 2021-06-26 [facility] [id number] 950 [place] 00:00:00 00:00:00 MOISES [address] 2021-06-26 2021-06-26 [id number] 028 [place] 00:00:00 00:00:00 MOISES [address] 2021-06-26 2021-06-26 [facility] [id number] [place] 00:00:00 00:00:00 MOISES [address] 2021-04-10 2021-04-10 [facility] [id number] 326 [place] 00:00:00 00:00:00 MOISES [address] 2021-04-10 2021-04-10 [id number] 326 [place] 00:00:00 00:00:00 MOISES [address] 2021-02-27 2021-02-27 Outpatient VENEGAS, [facility] [id number] 392 [place] 00:00:00 00:00:00 MOISES [address] Results Test Description Test Time Test Comments Results Result Comments Source SARS-CoV-2 (COVID-19) RNA [Presence] in Respiratory sp ecimen by 2021-07-12 15:10:32 MOR with probe detection Test Item Value Reference Range Interpretation Comme nts SARS-CoV-2 (COVID-19) RNA [Presence] in Respiratory Not detected No t-Detected specimen by MOR with probe detection (test code = 56194-9) Whether patient is employed in a healthcare setting (test code = 61314-6) Whether the patient has symptoms related to condition of interest (test code = 17664-2) Patient was hospitalized because of this condition (test code = 39675-8) Whether the patient was admitted to intensive care unit (ICU) for condition of interest (test code = 89326-8) Whether patient resides in a congregate care setting (test code = 75423-1) SARS-CoV-2 (COVID-19) RNA [Presence] in Respiratory specimen by MOR with probe [id number] 16:56:51 Test Item Value Reference Range Interpretation Comments SARS-CoV-2 (COVID-19) RNA Not detected Not-Detected [Presence] in Respiratory specimen by MOR with probe detection (test code = 31135-0) Whether patient is employed in a healthcare setting (test code = 27966-3) Whether the patient has symptoms related to condition of interest (test code = 48672-9) Patient was hospitalized because of this condition (test code = 62291-8) Whether the patient was admitted to intensive care unit (ICU) for condition of interest (test code = 89374-9) Whether patient resides in a congregate care setting (test code = 97337-6) SARS-CoV-2 (COVID-19) RNA [Presence] in Respiratory specimen by MOR with probe [id number] 01:14:02 Test Item Value Reference Range Interpretation Comments SARS-CoV-2 (COVID-19) RNA Not detected Not-Detected [Presence] in Respiratory specimen by MOR with probe detection (test code = 30231-2) Whether patient is employed in a healthcare setting (test code = 05526-2) Whether the patient has symptoms related to condition of interest (test code = 57959-7) Patient was hospitalized because of this condition (test code = 67690-2) Whether the patient was admitted to intensive care unit (ICU) for condition of interest (test code = 64490-0) Whether patient resides in a congregate care setting (test code = 12356-9)
[2021-07-12] MEDS ORDERED: POLYETHYL GLY 3350 17 GM/DOSE PO PRN (22:27)
[2021-07-12] MEDS ORDERED: SILDENAFIL CITRATE 20 MG TABLET PO SCH (22:30)
[2021-07-12] MEDS: ATORVASTATIN 40 MG TAB PO SCH (22:48)
[2021-07-12] MEDS: TRAMADOL HCL 50 MG TAB PO PRN (22:48)
[2021-07-13 04:31] LABS: Urine Appearance CLEAR (Clear); Urine Color YELLOW (Yellow)
[2021-07-13 04:32] LABS: Urine Bilirubin NEGATIVE (Negative); Urine Blood 1+ (Negative); Urine Glucose NEGATIVE (Negative); Urine Protein 2+ (Negative); Urine pH 7.5 (5.0-7.0)
[2021-07-13 04:37] LABS: Urine Bacteria <20 /HPF (NONE SEEN)
[2021-07-13 05:55] LABS: Basophils % 0.3 % (0-1.3); Hematocrit 24.5 % (39.6-49.0); Lymphocytes % 9.9 % (15.3-44.8); MPV 7.9 fL (7.6-11.3); RBC Red Blood Cell Count 2.67 M/uL (4.33-5.43)
[2021-07-13 06:21] LABS: Albumin 2.2 g/dL (3.4-5.0); Magnesium 1.9 mg/dL (1.8-2.4); Potassium 4.4 mmol/L (3.5-5.1); Prealbumin 12.5 mg/dL (20-40)
[2021-07-13] MEDS: TRAMADOL HCL 50 MG TAB PO PRN ×4 (07:56→20:04)
[2021-07-13] MEDS: DOCUSATE NA 100 MG CAP PO SCH ×2 (07:58→20:01)
[2021-07-13] MEDS: AMLODIPINE 10 MG TAB PO SCH (07:58)
[2021-07-13] MEDS: ASPIRIN 81 MG CHEWABLE TABLET PO SCH (07:58)
[2021-07-13] MEDS: LABETALOL HCL 100 MG TAB PO SCH ×2 (07:58→20:02)
[2021-07-13] MEDS ORDERED: CLOPIDOGREL 75 MG TABLET PO SCH (08:00)
[2021-07-13] MEDS ORDERED: METOPROLOL TAR 50 MG TAB PO SCH (08:00)
[2021-07-13] MEDS ORDERED: VALSARTAN 160 MG TAB PO SCH (08:00)
--- NOTE | 2021-07-13 09:55 | P.RH.PN ---
Estimated Length of Stay: 11 Expected Discharge Date: 07/23/21 Discharge Disposition Plan: Home Family Support: Yes Care Home Goal: Mobility, Transfers, Self Care Vital Signs: Last Vital Signs Temp 97.2 F 07/13/21 07:06 Pulse 69 07/13/21 07:58 Resp 18 07/13/21 08:56 BP 149/64 H 07/13/21 07:58 Pulse Ox 94 07/13/21 08:56 Laboratory: Laboratory Last Values WBC 10.30 K/uL (4.3-10.9) 07/13/21 05:31 RBC 2.67 M/uL (4.33-5.43) L 07/13/21 05:31 Hgb 8.6 g/dL (13.6-17.9) L 07/13/21 05:31 Hct 24.5 % (39.6-49.0) L 07/13/21 05:31 MCV 91.8 fL (80-100) 07/13/21 05:31 MCH 32.2 pg (27.0-35.0) 07/13/21 05:31 MCHC 35.0 g/dL (32.0-36.0) 07/13/21 05:31 RDW 13.9 % (12.1-15.2) 07/13/21 05:31 Plt Count 258 K/uL (152-406) 07/13/21 05:31 MPV 7.9 fL (7.6-11.3) 07/13/21 05:31 Neutrophils % 79.2 % (41.7-73.7) H 07/13/21 05:31 Lymphocytes % 9.9 % (15.3-44.8) L 07/13/21 05:31 Monocytes % 6.3 % (3.3-12.3) 07/13/21 05:31 Eosinophils % 4.3 % (0-4.4) 07/13/21 05:31 Basophils % 0.3 % (0-1.3) 07/13/21 05:31 Absolute Neutrophils 8.1 K/uL (1.8-8.0) H 07/13/21 05:31 Absolute Lymphocytes 1.0 K/uL (0.7-4.9) 07/13/21 05:31 Absolute Monocytes 0.6 K/uL (0.1-1.3) 07/13/21 05:31 Absolute Eosinophils 0.4 K/uL (0-0.5) 07/13/21 05:31 Absolute Basophils 0.0 K/uL (0-0.5) 07/13/21 05:31 Sodium 137 mmol/L (136-145) 07/13/21 05:31 Potassium 4.4 mmol/L (3.5-5.1) 07/13/21 05:31 Chloride 108 mmol/L (98-107) H 07/13/21 05:31 Carbon Dioxide 21 mmol/L (21-32) 07/13/21 05:31 BUN 30 mg/dL (7-18) H 07/13/21 05:31 Creatinine 1.88 mg/dL (0.55-1.3) H 07/13/21 05:31 Estimated GFR 36 mL/min (=/>90) L 07/13/21 05:31 Glucose 86 mg/dL (74-106) 07/13/21 05:31 Calcium 8.4 mg/dL (8.5-10.1) L 07/13/21 05:31 Magnesium 1.9 mg/dL (1.8-2.4) 07/13/21 05:31 Albumin 2.2 g/dL (3.4-5.0) L 07/13/21 05:31 Prealbumin 12.5 mg/dL (20-40) L 07/13/21 05:31 Urine Color Yellow (Yellow) 07/13/21 04:12 Urine Appearance Clear (Clear) 07/13/21 04:12 Urine pH 7.5 (5.0-7.0) H 07/13/21 04:12 Ur Specific [place] 1.020 (1.005-1.030) 07/13/21 04:12 Glucose (UA)(Auto) Negative (Negative) 07/13/21 04:12 Urine Ketones Negative (Negative) 07/13/21 04:12 Urine Blood 1+ (Negative) H 07/13/21 04:12 Urine Nitrite Negative (Negative) 07/13/21 04:12 Urine Bilirubin Negative (Negative) 07/13/21 04:12 Urine Urobilinogen 1.0 mg/dL (0.2-1.0) 07/13/21 04:12 Ur Leukocyte Esterase Negative (Negative) 07/13/21 04:12 Urine RBC 5-10 /HPF (NONE SEEN) H 07/13/21 04:12 Urine WBC 5-10 /HPF (<5) H 07/13/21 04:12 Ur Squamous Epith Cells <5 /HPF (NONE SEEN) 07/13/21 04:12 Urine Bacteria <20 /HPF (NONE SEEN) 07/13/21 04:12 Urine Culture Reflexed Not needed 07/13/21 04:12 Urine Total Protein 2+ (Negative) H 07/13/21 04:12 SARS-CoV-2 Rap RNA(RT-PCR) Negative (NEGATIVE) 07/12/21 22:45 Weight: 177 lb Wound Present: No Closed Surgical Incision Present: Yes Physician Update: Labs reviewed and are stable. He is very deconditioned. He is at contact guard with walking 39' and transfering also with CGA. He has 2 open wounds about 1/2 inch long on the left flank. Will apply wet to dry dressing. His extensive right sided torso wound is healing well. Summary: Patient's care plan and predatory animal exterminator goals have been reviewed and revised as necessary. Please see the Rehabilitation Signature page for all necessary signatures.
[2021-07-13 10:12] LABS: Blood Morphology Comment NOT SEEN (NOT SEEN); Platelet Estimate ADEQ
[2021-07-13] MEDS: ACETAMINOPHEN 325 MG TABLET PO PRN (13:56)
--- NOTE | 2021-07-13 16:06 | R.HP ---
HISTORY AND PHYSICAL FACILITY: [facility] ENCOUNTER DATE AND TIME: 07/13/2021 15:49 (GUITAR REPAIR TECHNICIAN) MR#: [id number] NAME JOANN SANDERS ADDRESS: [address] [place] [address]: [place]IP [id number] PHONE: DATE OF : 1950 AGE: 70 SSN# [id number] GENDER: Male DEXTERITY Unknown dexterity MARITAL STATUS RACE White PRE-HOSPITAL LIVING SETTING 01 - Home (private home/apt. board/care, assisted living, fdc, transitional living) PRE-HOSPITAL LIVING WITH Family/Relatives ENCOUNTER PHYSICIAN: Dr. Don Marsahll M.D. REFERRING DOCTOR: Dr. Oswald Cote DATE OF ADMISSION: 07/12/2021 22:23 (GUITAR REPAIR TECHNICIAN) REFERRING FACILITY [facility] HOME TYPE AND DETAILS: Type of home: single family house # of steps to enter the residence: 0 # of steps within the residence: 0 # of levels in the residence: 1 ONSET DATE: 06/27/2021 PRIMARY DIAGNOSIS-RELATED SURGERIES: Thoraco-abdominal aneurysm repair 07/02/2021 reconstruction celiac artery 07/02/2021 superior mesenteric artery 07/02/2021 left renal artery 07/02/2021 right renal artery 07/02/2021 Cardiac cath and angiogram - 06/27/2021 Lumbar drain replaced 07/04/2021 HISTORY OF PRESENT ILLNESS (HPI): Pt. is a 70 yo white male. On 06/27/2021 he was admitted to [facility] with diagnosis s/p L heart cath 06/27/2021 and Tho raco-abdominal aneurysm repair 07/02/2021. His impairment category is Cardiac 09 - Cardiac Disorders (09). Pre-morbidly, Pt. was independent/mod-I in Locomotion, Safety Awareness, Social Cognition, Balance, T ransfers Control, Sphincter Control, Self-Care, Communication, and Endurance; and he had good Locomot ion, Safety Awareness, Social Cognition, Balance, Transfers Control, Sphincter Control, Self-Care, Co mmunication, and Endurance. Currently, he has deficits of Locomotion, Safety Awareness, Balance, Transfers Control, Self-Care, an d Endurance. Pt. is now referred to [facility] for acute in-patient rehabilitation in order to maximize patient's functional independence in activities of daily living, strength, ROM, and mobi lity. Patient has realistic goal of being discharged at assistance level Min A- IND to reside at Home with Family/Relatives. Mr. Joann Sanders is a 70 yo male that lives at home with his . Mr. Sanders reported to OSH on 10/2020 with complaints of SOB and intense back pain. Mr. 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 Cierra oshea underwent thoracoabdominal aorta aneurysm repair with reconstruction of celiac, mesenteric and bila teral renal arteries. Post op complicated by spinal drain incidentally being removed on 07/03/2021, w ith hypotension thereafter and transient lower extremity loss of movement/sensation followed then by pressors/IVF administration and new lumbar drain placement and subsequent improvement in symptomology . Further post op issues include pAF, Ileus (per pulmonology MD report). Mr. Sanders reports (per the rapy note) being independent with all tasks prior to hospitalization. Mr. Sanders is currently workin g with therapy. Per therapy notes, Mr. Sanders lives in a single fe house with his . Mr. Norma rodriguez requires partial assist for increased safety with vc/tc and physical assistance while working on functional ambulation and functional tasks. Mr. Sanders therapy notes indicate deficits with the foll owing: mobility, ROM, strength, endurance, and transfers. While Mr. Sanders lives at home with his wi fe, she is also attending to her own ailments. Mr. Sanders requires intense acute inpatient rehab to address deficits, educate family and patient, maximize independence with ADL's, reducate on safe durand sfers, educate on fall recovery, endurance, breathing exercises, increase UB/LB strength, and prepare patient to safely discharge home. Mr. Sanders will need to learn how to conserve energy during funct ional task and activity pacing to reduce fall risk and wean off of O2. With an interdisciplinary approach by acute IRF, pt. demonstrates great potential and motivation to get stronger, safer, and more independent to return to [facility]. Pt demonstrates a strong need for an intensive team: rehab doctor, nurse, social organization professor, and therapist to meet functional and medical goals. It is reasonable and necessary for the patient to come to acute IRF to safely dc. Pt is medically stable but in need of 24 hour nursing, doctor supervision, and oversight while receiving active and ongoing intensive (OT/PT/ST). The patient is reasonably expected to participate in 3 hours of therapy a day/15 hours a week. COVID-19 screening performed. Patient denies a new onset of fever, cough, difficulty breathing, sore throat, body aches and non-allergy nasal congestion in the past 24 hours. Patient denies travel outside of [place] in the past 14 days. Patient denies any contact with someone who has a confirmed diagnosis of or is under investigation for COVID-19 in the past 14 days. Patient has been tested negative for COVID- 19. MEDICATION ALLERGIES: No Known Drug Allergies (NKDA) ENVIRONMENTAL ALLERGIES: No Known - Substance Allergies None Known - Other Allergies None Known PAST MEDICAL HISTORY: OSH ER CT showed 5.6 cm AAA (2.7 2017) without rupture. 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 Per Endocrinology report by MD. Solid pulmonary nodule measuring around 6 to 8 mm. Per Endocrinology report by MD. 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 - per vascular surgery note by MD Hypernatremia PAST SURGICAL HISTORY: Cardiac Cath 06/27/2021 Extubated Thoracoabdominal Aneurysm Repair 07/02/2021 Reconstruction of the celiac SMA and bilateral renal arteries with graft 07/02/2021 Extubated 07/03/2021 Lumbar Drain replaced 07/04/2021 and removed 07/06/2021 Chest tubes removed 07/06/2021 Plantar Fascia Surgery - date not provided Stent - date not provided SOCIAL HISTORY: - Home Living Family/Relatives REVIEW OF SYSTEMS: - Gen No Chills Fatigue No Fever - Eyes No Double Vision No itchiness - ENMT No Difficulty Swallowing - CVS No Chest Discomfort No Chest Pain Fatigue No Weight Gain - Resp No Cough No Shortness of Breath - GI Continent Abdominal Pain No Constipation No Diarrhea - Continent No Kidney Pain No Painful Urination No Urinary Urgency - MSK No Joint Pain Muscle Cramps Stiffness - Skin No Itching No Rash No Suspicious Lesions - Neuro Coordination Difficulty No Difficulty with Concentration No Memory Loss No Seizures Weakness - Psych No Anxiety No Depression No HIV Exposure No Persistent Infections No Seasonal Allergies - Endo No Cold/Heat Intolerance No Excessive Hunger No Excessive Thirst No Excessive Urination PHYSICAL EXAM - Gen Alert and awake Lying in bed No apparent distress Oriented to: person, time, and place - Skin Extensive post surgical abdominal wound is healing well. Two smaller left flank wounds are open with little drainage. - Eyes No abnormalities - ENMT No abnormalities - Neck No abnormalities - CVS RRR - Chest No abnormalities - Abd + bowel sounds - GI Soft Deferred - No abnormalities - Ext Mild bilateral lower extremity edema. - MSK 4/5 weakness in both lower extremities. - Neuro No focal deficits - Psych No abnormalities VITAL SIGNS Temperature: 97.2 F SBP/DBP: 149/64 Pulse: 69 Resp: 16 NURSING: - Shower allowing shower PRECAUTIONS: - Fall Precaution Bed alarm TABS alarm Wheel chair alarm - Respiratory Monitor and assess patient regularly - Safety Fall risk ACTIVITIES OOB only with supervision QI SCORES: - Self-Care A. Eating 02-Substantial/maximal assistance B. Oral hygiene 05-Setup or clean-up assistance C. Toileting hygiene 03-Partial/moderate assistance E. Shower/bathe self 88-Not attempted due to medical condition or safety concerns F. Upper body dressing 03-Partial/moderate assistance G. Lower body dressing 03-Partial/moderate assistance H. Putting on/taking off footwear 03-Partial/moderate assistance - Mobility A. Roll left and right 03-Partial/moderate assistance B. Sit to lying 03-Partial/moderate assistance C. Lying to sitting on side of bed 03-Partial/moderate assistance D. Sit to stand 03-Partial/moderate assistance E. Chair/wmy-ur-kwpmw transfer 03-Partial/moderate assistance F. Toilet transfer 03-Partial/moderate assistance G. Car transfer 88-Not attempted due to medical condition or safety concerns I. Walk 10 feet 03-Partial/moderate assistance J. Walk 50 feet with two turns 03-Partial/moderate assistance K. Walk 150 feet 03-Partial/moderate assistance L. Walking 10 feet on uneven surfaces 88-Not attempted due to medical condition or safety concerns M. 1 step (curb) 88-Not attempted due to medical condition or safety concerns N. 4 steps 88-Not attempted due to medical condition or safety concerns O. 12 steps 88-Not attempted due to medical condition or safety concerns P. Picking up object 88-Not attempted due to medical condition or safety concerns R. Wheel 50 feet with two turns S. Wheel 150 feet - Bladder and Bowel Bladder continence Bowel continence - Endurance Fair - Balance Fair - Safety Awareness Fair CURRENT FUNC. DEFICITS: Self-Care, Mobility, Endurance, Balance, and Safety Awareness MEDICATIONS: - Other See attached MAR (Medication Administration Record) ASSESSMENT: Pt. is a 70 yo white male.On 06/27/2021 he was admitted to [facility] with diagnosis s/p L hea rt cath 06/27/2021 and Thoraco-abdominal aneurysm repair 07/02/2021.His impairment category is Cardia c 09 - Cardiac Disorders ().Pre-morbidly, Pt. was independent/mod-I in Locomotion, Safety Awarenes s, Social Cognition, Balance, Transfers Control, Sphincter Control, Self-Care, Communication, and End urance; and he had good Locomotion, Safety Awareness, Social Cognition, Balance, Transfers Control, S phincter Control, Self-Care, Communication, and Endurance.Currently, he has deficits of Locomotion, S afety Awareness, Balance, Transfers Control, Self-Care, and Endurance.Pt. is now referred to [facility] for acute in-patient rehabilitation in order to maximize patient's function al independence in activities of daily living, strength, ROM, and mobility.- Rehab Goal Patient has realistic goal of being discharged at assistance level Min A- IND to reside at Home with Family/Relatives. Mr. Joann Sanders is a 70 yo male that lives at home with his . Mr. Sanders reported to OSH on 10/2020 with complaints of SOB and intense back pain. Mr. 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 Cierra oshea underwent thoracoabdominal aorta aneurysm repair with reconstruction of celiac, mesenteric and bila teral renal arteries. Post op complicated by spinal drain incidentally being removed on 07/03/2021, w ith hypotension thereafter and transient lower extremity loss of movement/sensation followed then by pressors/IVF administration and new lumbar drain placement and subsequent improvement in symptomology . Further post op issues include pAF, Ileus (per pulmonology MD report). Mr. Sanders reports (per the rapy note) being independent with all tasks prior to hospitalization. Mr. Sanders is currently workin g with therapy. Per therapy notes, Mr. Sanders lives in a single fe house with his . Mr. Norma rodriguez requires partial assist for increased safety with vc/tc and physical assistance while working on functional ambulation and functional tasks. Mr. Sanders therapy notes indicate deficits with the foll owing: mobility, ROM, strength, endurance, and transfers. While Mr. Sanders lives at home with his wi fe, she is also attending to her own ailments. Mr. Sanders requires intense acute inpatient rehab to address deficits, educate family and patient, maximize independence with ADL's, reducate on safe durand sfers, educate on fall recovery, endurance, breathing exercises, increase UB/LB strength, and prepare patient to safely discharge home. Mr. Sanders will need to learn how to conserve energy during funct ional task and activity pacing to reduce fall risk and wean off of O2. With an interdisciplinary approach by acute IRF, pt. demonstrates great potential and motivation to get stronger, safer, and more independent to return to [facility]. Pt demonstrates a strong need for an intensive team: rehab doctor, nurse, social organization professor, and therapist to meet functional and medical goals. It is reasonable and necessary for the patient to come to acute IRF to safely dc. Pt is medically stable but in need of 24 hour nursing, doctor supervision, and oversight while receiving active and ongoing intensive (OT/PT/ST). The patient is reasonably expected to participate in 3 hours of therapy a day/15 hours a week. COVID-19 screening performed. Patient denies a new onset of fever, cough, difficulty breathing, sore throat, body aches and non-allergy nasal congestion in the past 24 hours. Patient denies travel outside of [place] in the past 14 days. Patient denies any contact with someone who has a confirmed diagnosis of or is under investigation for COVID-19 in the past 14 days. Patient has been tested negative for COVID- 19.REHAB PLAN: - Physical Therapy Gait dysfunction - to improve, our physical therapists will perform initial evaluation of pt's status upon admission and devise an individualized program for Gait Training, and Wheel Chair mobility Inability to transfer - to improve, our physical therapists will perform initial evaluation of pt's s tatus upon admission and devise an individualized program for Bed mobility Need for home safety evaluation - to improve, our physical therapists will perform initial evaluation of pt's status upon admission and devise an individualized program for Home Evaluation Need in caregiver upon discharge - to improve, our physical therapists will perform initial evaluatio n of pt's status upon admission and devise an individualized program for Caregiver Training New precaution - to improve, our physical therapists will perform initial evaluation of pt's status u maged admission and devise an individualized program for Patient precaution education Edema - to improve, our physical therapists will perform initial evaluation of pt's status upon admi ssion and devise an individualized program for Elevation Training, and Lymphedema Therapy Having wound - to improve, our physical therapists will perform initial evaluation of pt's status up on admission and devise an individualized program for Wound Care Poor balance - to improve, our physical therapists will perform initial evaluation of pt's status upo n admission and devise an individualized program for Balance Training Poor endurance - to improve, our physical therapists will perform initial evaluation of pt's status u maged admission and devise an individualized program for Endurance Training Weakness - to improve, our physical therapists will perform initial evaluation of pt's status upon ad mission and devise an individualized program for Aquatic Therapy, Neuromuscular Reeducation, and Stre ngthening Achieving independence - to improve, our physical therapists will perform initial evaluation of pt's status upon admission and devise an individualized program for Community Reintegration Activities - Occupational Therapy ADL deficits - to improve, our occupation therapists will perform initial evaluation of pt's status u maged admission and devise an individualized program for Bathing, Bed mobility, Community Reintegration , Cooking, Dressing, Eating, Fine Motor Skills, Grooming, Homemaking, Kitchen Mobility, Laundry, Robyn ent Education, Safety Awareness, Splinting - Positioning, Transfers(Toilet, Tub, Shower), and Wheel C hair Management Need for direct support professional caregiver - to improve, our occupation therapists will perform initial evaluation of pt's s tatus upon admission and devise an individualized program for Caregiver Training Weakness - to improve, our occupation therapists will perform initial evaluation of pt's status upon admission and devise an individualized program for Aquatic Therapy, Balance, Endurance, UE ROM, and U E strengthening MEDICAL PLAN: - Diet Type Start Regular - will still have FLOOR WINDER evaluate with MD orders due to swallowing difficulties reported i n pt's chart - Diet - Liquid Texture Start Regular - Tube Feed Start N/A - Fall Precaution Bed alarm TABS alarm Wheel chair alarm - Other See attached MAR (Medication Administration Record) - Diet - Solid Texture Regular - Shower shower - Respiratory Monitor and assess patient regularly - Safety Fall risk DISCHARGE PLAN: - Estimated Length of Stay (days) 10 to 14 days. - Consensus on plan Discharge plan has been discussed with primary caregiver. Patient/Family is in agreement with the reyes n. Primary caregiver is in agreement with the plan. - Patient/Family Goals Return home independently. - Planned Living Setting Upon Discharge Home, to live with Family/Relatives. Transitional Living. SIGNATURE PANEL: (GUITAR REPAIR TECHNICIAN)
--- NOTE | 2021-07-13 16:07 | PAPE ---
POST ADMISSION PHYSICIAN EVALUATION PATIENT: [facility] MR# [id number] REFERRING DOCTOR Dr. Oswald Cote EVALUATION DATE AND TIME 07/13/2021 16:05 (RESIDENTIAL PROPERTY MANAGER) NAME JOANN SANDERS DATE OF 1950 AGE 70 PHONE SSN# [id number] GENDER male EVALUATING PHYSICIAN Dr. Don Marshall M.D. ADMISSION DIAGNOSIS: s/p L heart cath 06/27/2021 and Thoraco-abdominal aneurysm repair 07/02/2021 ONSET DATE 06/27/2021 POST-ADMISSION FUNCTIONAL/MEDICAL STATUS: - Bladder Same accident frequency: 7-Ind - No accidents in the past 7 days - Bowel Same accident frequency: 7-Ind - No accidents in the past 7 days - Walking Same score based on distance walked: 0(N/A) Same score based on distance walked: 3(>=150ft) - Wheelchair Same score based on distance traveled: 0(N/A) STATUS CHANGE EVALUATION: No change in Functional or Medical Status is identified compared with Pre-Admission screening. PATIENT NEEDS CLOSE MEDICAL SUPERVISION BY A REHABILITATION PHYSICIAN FOR: Coordination of Treatment Team Wound Care Medical and Co-Morbidity Management Pain Management Post-Op follow up Respiratory/Airway Management medication management PATIENT REQUIRES 24X7 REHAB NURSING FOR MEDICAL AND FUNCTIONAL MGT. OF THE FOLLOWING DEFICITS: Disease Management Medication Management Patient/Family Education Providing Safe Environment Respiratory/Airway Management Ambulation Pain Management Skin Integrity PATIENT REQUIRES INTENSIVE, COORDINATED INTERDISCIPLINARY APPROACH TO REHAB: Arranging Home Equipment/Services Discharge Planning Family Intervention/Training Roofing Supervisor/Case Management LIST OF IDENTIFIED AND POTENTIAL PROBLEMS: Alteration in air exchange Alteration in leisure activities Bladder, Incontinence Bowel, Incontinence Falls, Actual or Potential Infection, Actual or Potential Mobility Impaired Pain, Alteration in Comfort Self Care Deficit Skin Integrity, Actual or Potential Urinary Tract Infection (UTI), Actual or Potential RISK FOR COMPLICATIONS - Angina Pectoris Routinely assess patient. vitals. - Pain Clinical staff will assess patient's pain level every shift per protocol to monitor for pain manageme nt effectiveness. Educate patient on pain management strategies. Medications will be given and the pa in level reassessed. Clinical Staff may employ other methods such as: massage, distraction, decrease stimulus, etc. as needed. - Respiratory distress Monitor vitals. consult respiratory as ordered by MD. Educate on breathing exercises. Educate on ener gy conservation. Educate on activity pacing. - Aspiration Swallowing difficulties per therapy notes. Monitor for signs of aspiration. TEMPERATURE CONTROL INSPECTOR as ordered by MD. - UTI Monitor for frequency, burning, discomfort, or incontinence. - CVA Monitor signs and symptoms of stroke. - DVT Routine checks/assessments of pt. FRANCISCO hose; sequential compression device as needed/prescribed. - Skin Breakdown Nursing will assess skin daily using assessment tool and will place on Skin Breakdown Precautions as Indicated per protocol. - Falls Educated pt on fall prevention strategies to reduce/eliminate fall risk. Patient will be evaluated fo r Fall Precautions and will be placed on Fall Precautions as indicated per protocol. - Impaired Safety Educate patient on safety awareness strategies. Educate patient on safety hazards. - Bleeding Monitor lab values. - Limb Ischemia Assess circulation each shift. Report any changes to MD. - Sespsis Monitor lab values. INTERVENTIONS - HTN medication management. - CAD Medications. Diet plan as ordered by MD. - Safety Awareness Fall bracelet. Non slip socks. assistance with standing. fall prevention. Assessment of vitals. - Angina Pectoris Routinely assess patient. vitals. - TAAA Hemodynamic support with pressors and IVFs - per Nephrology report by MD. - Acute Blood Loss - Anemia transfusions as needed - per Nephrology report by MD. - COPD Supplemental O2 - per Nephrology report by MD. - Atelectasis Incentive Spirometry - per pulmonology MD report. Bronchopulmonary hygiene - per pulmonology MD repor t. - Hypernatremia Na remains abnormal, encourage to eat and continue fluid restriction - per pulmonology MD report. PATIENT COULD BE AT RISK FOR COMPLICATIONS FROM ADVERSE MEDICAL CONDITIONS DUE TO HIS/HER COMORBIDITI ES AND THE RIGORS OF THE INTENSIVE REHABILLITATION PROGRAM. METHODS OR INTERVENTIONS TO AVOID COMPLIC ATIONS INCLUDE: - Bleeding Assess lab values and manage abnormalities. Nursing to teach precautions for anti-coagulation therapy . Wound to be assessed every shift. - Infection Clinical staff to assess and manage the signs and symptoms of infection including fever, redness, war mth, etc. - Urinary Tract Infection - Falls Patient will be evaluated for Fall Precautions and will be placed on Fall Precautions as indicated pe r protocol. - Skin Breakdown Nursing will assess skin daily using assessment tool and will place on Skin Breakdown Precautions as indicated per protocol. - Pain Clinical staff may employ non-medication methods such as massage, distraction, decrease stimulus, etc . as needed. Clinical staff will assess patient's pain level every shift per protocol to assess and e nsure pain management effectiveness. Medications will be given and the pain level re-assessed. PRELIMINARY PLAN OF CARE: - Physical Therapy Patient needs Physical Therapy for a daily minimum of 1.5 hours at least 5 out of 7 days, to improve: Mobility, Strengthening, Transfers, Stretching, ROM, Endurance, Ability to manage stairs, Gait, and Balance. - Speech Therapy Patient needs Speech Therapy for a daily minimum of 0.5 hours at least 5 out of 7 days, to improve: S wallowing, Cognition, Language Skills, and Compensatory Strategies. - Rehabilitation Nursing Patient requires 24x7 Rehabilitation Nursing for: Pain Issues, Identifying and preventing risk factor s, Monitoring and reporting current medical conditions, Assisting with ambulation and transfer, Clara ting with all ADL-s, Teaching patients about disease process and medications, Family teaching, Provid ing safe environment, Bowel and Bladder Issues, Skin Integrity, and Medication Management. Patient needs Roofing Supervisor and/or Case Management for: Discharge Planning, Arranging Home Equipmen t or Services, and Family Interventions. - Dietary and Nutrition Services Patient needs Dietary and Nutrition Services for: Adequate Nutrition, Nutritional Supplements, and Nu tritional Education. - Occupational Therapy Patient needs Occupational Therapy for a daily minimum of 1.5 hours at least 5 out of 7 days, to impr ove Activities of Daily Living, including: Eating, Grooming, Bathing, Dressing, Toileting, Toilet Tra nsfers, Community Reintegration, Higher functional activities, Adaptive Equipment, Splinting, Househo ld Tasks, and Other activities as determined. QI SCORES: - Self-Care A. Eating 02-Substantial/maximal assistance B. Oral hygiene 05-Setup or clean-up assistance C. Toileting hygiene 03-Partial/moderate assistance E. Shower/bathe self 88-Not attempted due to medical condition or safety concerns F. Upper body dressing 03-Partial/moderate assistance G. Lower body dressing 03-Partial/moderate assistance H. Putting on/taking off footwear 03-Partial/moderate assistance - Mobility A. Roll left and right 03-Partial/moderate assistance B. Sit to lying 03-Partial/moderate assistance C. Lying to sitting on side of bed 03-Partial/moderate assistance D. Sit to stand 03-Partial/moderate assistance E. Chair/vcv-hk-[id number] transfer 03-Partial/moderate assistance F. Toilet transfer 03-Partial/moderate assistance G. Car transfer 88-Not attempted due to medical condition or safety concerns I. Walk 10 feet 03-Partial/moderate assistance J. Walk 50 feet with two turns 03-Partial/moderate assistance K. Walk 150 feet 03-Partial/moderate assistance L. Walking 10 feet on uneven surfaces 88-Not attempted due to medical condition or safety concerns M. 1 step (curb) 88-Not attempted due to medical condition or safety concerns N. 4 steps 88-Not attempted due to medical condition or safety concerns O. 12 steps 88-Not attempted due to medical condition or safety concerns P. Picking up object 88-Not attempted due to medical condition or safety concerns R. Wheel 50 feet with two turns S. Wheel 150 feet - Bladder and Bowel Bladder continence Bowel continence - Endurance Fair - Balance Fair - Safety Awareness Fair POTENTIAL FUNCTIONAL GOALS FOR PATIENT TO ACHIEVE BY DISCHARGE: - Safety Precaution Patient will remain free from falls or injury at time of discharge. - Bed Mobility Patient will perform bed mobility at 4-Vin level of assistance. - Transfers Patient will complete transfers from bed to chair at 4-Vin level of assistance. - Mobility Patient will ambulate 150 ft with 4-Vin level of assistance with RW. PATIENT REHAB POTENTIAL Lina SANDERS is able and expected to receive 3 hours of individualized therapy daily on at least 5 of e very 7 days Lina SANDERS's prognosis for significant practical improvement within a reasonable period of time appea rs Good Expected level of measurable improvement will be of a practical value to Lina SANDERS's functional capa city or adaptations to impairments Has a viable Discharge Plan Medically appropriate; condition is sufficiently stable to participate in intensive rehab program DISCHARGE PLAN: - Estimated Length of Stay (days) 10 to 14 days. - Consensus on plan Discharge plan has been discussed with primary caregiver. Patient/Family is in agreement with the reyes n. Primary caregiver is in agreement with the plan. - Patient/Family Goals Return home independently. - Planned Living Setting Upon Discharge Home, to live with Family/Relatives. Transitional Living. CONCLUSION ON REHABILITATION NECESSITY: I have evaluated patient's pre-admission functional status and, comparing it to the patient's post-ad mission functional status now, I conclude that the pre-admission assessment was accurate. Patient's c ondition on admission supports the medical necessity of admission to IR[facility]. It is safe to proceed with patient's therapy program. SIGNATURE PANEL: (RESIDENTIAL PROPERTY MANAGER)
[2021-07-13] MEDS: ENSURE HIGH PROTEIN 237 ML CAN PO SCH (20:01)
[2021-07-13] MEDS: CRANBERRY FRUIT EXTRACT 400 MG CAP PO SCH (20:01)
[2021-07-13] MEDS: EZETIMIBE 10 MG TAB PO SCH (20:02)
[2021-07-13] MEDS: ATORVASTATIN 40 MG TAB PO SCH (20:02)
[2021-07-13] MEDS: MELATONIN 3 MG TABLET PO PRN (20:03)
[2021-07-14] MEDS: TRAMADOL HCL 50 MG TAB PO PRN ×4 (07:26→19:40)
[2021-07-14] MEDS: AMLODIPINE 10 MG TAB PO SCH (07:46)
[2021-07-14] MEDS: LABETALOL HCL 100 MG TAB PO SCH (07:46)
[2021-07-14] MEDS: ASPIRIN 81 MG CHEWABLE TABLET PO SCH (07:46)
[2021-07-14] MEDS: FE SULF/FA/VIT B COMP & C TAB PO SCH (07:46)
[2021-07-14] MEDS: CRANBERRY FRUIT EXTRACT 400 MG CAP PO SCH ×2 (07:46→19:40)
[2021-07-14] MEDS: DOCUSATE NA 100 MG CAP PO SCH ×2 (07:46→19:40)
[2021-07-14] MEDS: ENSURE HIGH PROTEIN 237 ML CAN PO SCH (07:47)
[2021-07-14] MEDS: ACETAMINOPHEN 325 MG TABLET PO PRN (09:19)
[2021-07-14] MEDS: CLOPIDOGREL 75 MG TABLET PO SCH (11:32)
--- NOTE | 2021-07-14 12:08 | PN ---
Date of Progress Note: 07/14/2021 Subjective: The patient was seen this morning for followup. No new complaints or problems reported by the patient. He slept very well. Denies any cough, congestion, shortness of breath. Objective: Vital Signs: Reviewed. HEENT: Unremarkable. Lungs: Clear to auscultation. Heart: Sounds normal. Abdomen: Soft. Bowel sounds normal. No guarding, rigidity, tenderness, distention. Extremities: No leg edema. Neuro: The patient is able to elevate both lower extremities against gravity. Impression: 1.Paraparesis, improving. 2.Coronary artery disease. 3.Carotid artery stenosis. 4.Peripheral vascular disease. 5.Thoracoabdominal aortic aneurysm, status post surgery. 6.Hypertension. 7.Chronic kidney disease. 8.Anemia due to acute blood loss. 9.Hypertension. 10.Hyperlipidemia. Plan: We will go ahead and continue current medical management. We will monitor his blood pressure and make adjustment on antihypertensive medication as it becomes necessary. I did reach out to his c ardiologist, Dr. Bautista and discuss all the details and prior to his surgery and hospital admission, he was on aspirin and Plavix and currently he is not getting any Plavix, but he is on his aspirin. Dr. Bautista wants me to restart his Plavix and we will start it as of today. We also talked about DVT prop hylaxis using heparin subcutaneous injection and Dr. Bautista has given me his okay to start heparin for DVT prophylaxis. I will see the patient tomorrow for followup. I had a long discussion with the pat iehelen regarding smoking cessation. He has not smoked since he has been in the hospital and we did spe nd some time regarding the importance of not to restart smoking and he understands and he will try hi s best not to restart smoking as he tells me. JESSICA/MODL Voice ID: [id number] Report ID: [id number]
[2021-07-14] MEDS: HEPARIN 5000 UNIT/ML 1 ML VIAL SQ SCH (18:09)
[2021-07-14] MEDS: EZETIMIBE 10 MG TAB PO SCH (19:40)
[2021-07-14] MEDS: HYDRALAZINE HCL 10 MG TABLET PO SCH (19:40)
[2021-07-14] MEDS: ENSURE ENLIVE 237 ML CAN PO SCH (19:41)
[2021-07-14] MEDS: MELATONIN 3 MG TABLET PO PRN (19:41)
[2021-07-14] MEDS: METOPROLOL TAR 50 MG TAB PO SCH (19:41)
[2021-07-14] MEDS: ATORVASTATIN 40 MG TAB PO SCH (19:41)
[2021-07-15] MEDS: HEPARIN 5000 UNIT/ML 1 ML VIAL SQ SCH ×2 (06:42→19:24)
[2021-07-15] MEDS: AMLODIPINE 10 MG TAB PO SCH (07:55)
[2021-07-15] MEDS: CRANBERRY FRUIT EXTRACT 400 MG CAP PO SCH ×2 (07:55→19:23)
[2021-07-15] MEDS: DOCUSATE NA 100 MG CAP PO SCH ×2 (07:56→19:23)
[2021-07-15] MEDS: HYDRALAZINE HCL 10 MG TABLET PO SCH ×2 (07:56→19:24)
[2021-07-15] MEDS: ASPIRIN 81 MG CHEWABLE TABLET PO SCH (07:56)
[2021-07-15] MEDS: METOPROLOL TAR 50 MG TAB PO SCH ×2 (07:56→19:23)
[2021-07-15] MEDS: CLOPIDOGREL 75 MG TABLET PO SCH (07:56)
[2021-07-15] MEDS: FE SULF/FA/VIT B COMP & C TAB PO SCH (07:56)
[2021-07-15] MEDS: ENSURE ENLIVE 237 ML CAN PO SCH ×2 (07:57→19:24)
[2021-07-15] MEDS ORDERED: CLOPIDOGREL 75 MG TABLET PO SCH (08:00)
[2021-07-15] MEDS: ACETAMINOPHEN 325 MG TABLET PO PRN (10:22)
--- NOTE | 2021-07-15 12:54 | PN ---
Date of Progress Note: 07/15/2021 Subjective: The patient was seen this morning for followup. He was lying in bed, not in any distres s. He has little more pain around his surgical incision site with more therapy that he is doing. No constipation. No diarrhea. No chest pain. No shortness of breath. No cough, congestion. Objective: Vital Signs: Reviewed. HEENT: Unremarkable. Lungs: Clear to auscultation. Heart: Sounds normal. Abdomen: Soft. Bowel sounds normal. No guarding, rigidity, tenderness, distention. Extremities: No leg edema. Skin: His surgical incision appears healing very well. No signs of any redness, discharge, bleeding , or swelling around the surgical incision site. Impression: 1.Paraparesis. 2.Thoracoabdominal aortic aneurysm, status post surgery. 3.Coronary artery disease. 4.Hypertension. Plan: We will go ahead and continue current medications, continue current antihypertensive medicatio n. Yesterday, I discontinued his labetalol and started him on metoprolol that he was taking at home, which was 50 mg 2 times a day. We will continue his amlodipine and I have also added hydralazine 10 mg 2 times a day. The patient was encouraged to drink more water. We will repeat his blood work tomorrow to follow up on his renal function. I will see him tomorrow for followup. JESSICA/MODL Voice ID: [id number] Report ID: [id number]
[2021-07-15] MEDS: TRAMADOL HCL 50 MG TAB PO PRN ×2 (14:51→19:23)
[2021-07-15] MEDS: MELATONIN 3 MG TABLET PO PRN (19:24)
[2021-07-15] MEDS: EZETIMIBE 10 MG TAB PO SCH (19:24)
[2021-07-15] MEDS: ATORVASTATIN 40 MG TAB PO SCH (19:24)
[2021-07-16 04:34] LABS: Absolute Lymphocytes (CBC) 1.5 K/uL (0.7-4.9); Basophils % 0.5 % (0-1.3); Hematocrit 28.3 % (39.6-49.0); Lymphocytes % 10.6 % (15.3-44.8); MPV 7.6 fL (7.6-11.3); RBC Red Blood Cell Count 3.06 M/uL (4.33-5.43)
[2021-07-16 04:43] LABS: Potassium 4.9 mmol/L (3.5-5.1)
[2021-07-16] MEDS: HEPARIN 5000 UNIT/ML 1 ML VIAL SQ SCH ×2 (05:55→18:04)
[2021-07-16] MEDS: TRAMADOL HCL 50 MG TAB PO PRN ×2 (08:11→16:53)
[2021-07-16] MEDS: FE SULF/FA/VIT B COMP & C TAB PO SCH (08:12)
[2021-07-16] MEDS: AMLODIPINE 10 MG TAB PO SCH (08:12)
[2021-07-16] MEDS: ASPIRIN 81 MG CHEWABLE TABLET PO SCH (08:12)
[2021-07-16] MEDS: HYDRALAZINE HCL 10 MG TABLET PO SCH ×2 (08:12→19:11)
[2021-07-16] MEDS: CLOPIDOGREL 75 MG TABLET PO SCH (08:12)
[2021-07-16] MEDS: DOCUSATE NA 100 MG CAP PO SCH ×2 (08:13→19:10)
[2021-07-16] MEDS: METOPROLOL TAR 50 MG TAB PO SCH ×2 (08:13→19:10)
[2021-07-16] MEDS: CRANBERRY FRUIT EXTRACT 400 MG CAP PO SCH ×2 (08:13→19:09)
[2021-07-16] MEDS: ENSURE ENLIVE 237 ML CAN PO SCH ×2 (08:13→19:15)
--- NOTE | 2021-07-16 09:03 | RAD REPORT ---
EXAM DESCRIPTION: RAD - Chest Pa And Lat (2 Views) - 07/16/2021 8:47 am CLINICAL HISTORY: leukocytosis Chest pain. COMPARISON: Chest Single View dated 12/27/2018; Chest Pa And Lat (2 Views) dated 12/09/2017; CHEST PA A ND LAT 2 VIEW dated 03/17/2009 FINDINGS: Left lung base atelectasis/infiltrate is present with elevated left hemidiaphragm. The malu gs are otherwise emphysematous. The heart is normal in size. No displaced fractures.
[2021-07-16] MEDS: ACETAMINOPHEN 325 MG TABLET PO PRN (09:13)
--- NOTE | 2021-07-16 17:24 | R.PN ---
PROGRESS NOTES ENCOUNTER DATE AND TIME: 07/16/2021 17:14 (CHIEF SUBSTATION OPERATOR) NAME JOANN SANDERS DATE OF : 1950 DATE OF ADMISSION: 07/12/2021 22:23 (CHIEF SUBSTATION OPERATOR) s/p L heart cath 06/27/2021 and Thoraco-abdominal aneurysm repair 07/02/2021HIEF COMPLAINT: Thoraco-abdominal aneurysm repair, debility. SUBJECTIVE: Pt denied any depression. Pt denied any Shortness of Breath. WBC 13.8, neutrophils 78.1, Hgb 9.5, Milk Tanker Driver 1.78. Ambulated 115' with contact guard assistance using a rolling walker. VITAL SIGNS Temperature: 97.1 F SBP/DBP: 132/62 Pulse: 82 Resp: 16 MEDICATION ALLERGIES: No Known Drug Allergies (NKDA) ENVIRONMENTAL ALLERGIES: No Known - Substance Allergies None Known - Other Allergies None Known NURSING: - Shower allowing shower PRECAUTIONS: - Fall Precaution Bed alarm TABS alarm Wheel chair alarm - Respiratory Monitor and assess patient regularly - Safety Fall risk ACTIVITIES OOB only with supervision THERAPIES: - Dietary and Nutrition Adequate Nutrition. Nutritional Education. Nutritional Supplements. - Occupational Therapy Cognitive Retraining. Evaluate and Treat. ADL Training. Adaptive Equipment. Community Reintegration. Eating. Household Tasks. Patient/Family Education. Safety Awareness. Transfer Training. UE ROM. [facility]. - Speech Therapy Cognitive Training. Expressive Language Skills. Memory Strategies. Receptive Language Skills. Speech Intelligibility Training. - Physical Therapy Balance Training. Evaluate and Treat. Gait Training. LE ROM. LE Strengthening. Medical Equipment Asse ssment and Evaluation. Mobility Training. Modalities Training. Patient/Family Education. Safety Aware ness. Transfer Training. PHYSICAL EXAM - Gen Alert and awake Lying in bed No apparent distress Oriented to: person, time, and place - Skin Extensive post surgical abdominal wound is healing well. Two smaller left flank wounds are open with little drainage. - Eyes No abnormalities - ENMT No abnormalities - Neck No abnormalities - CVS RRR - Chest No abnormalities - Abd + bowel sounds - GI Soft Deferred - No abnormalities - Ext Mild bilateral lower extremity edema. - MSK 4/5 weakness in both lower extremities. - Neuro No focal deficits - Psych No abnormalities ASSESSMENT: Pt. is a 70 yo white male.On 06/27/2021 he was admitted to [facility] with diagnosis s/p L hea rt cath 06/27/2021 and Thoraco-abdominal aneurysm repair 07/02/2021.His impairment category is Cardia c 09 - Cardiac Disorders (09).Pre-morbidly, Pt. was independent/mod-I in Locomotion, Safety Awarenes s, Social Cognition, Balance, Transfers Control, Sphincter Control, Self-Care, Communication, and End urance; and he had good Locomotion, Safety Awareness, Social Cognition, Balance, Transfers Control, S phincter Control, Self-Care, Communication, and Endurance.Currently, he has deficits of Locomotion, S afety Awareness, Balance, Transfers Control, Self-Care, and Endurance.Pt. is now referred to [facility] for acute in-patient rehabilitation in order to maximize patient's function al independence in activities of daily living, strength, ROM, and mobility.- Rehab Goal Patient has realistic goal of being discharged at assistance level Min A- IND to reside at Home with Family/Relatives. MDM/PLAN: - Physical Therapy Gait dysfunction - to improve, our physical therapists will perform initial evaluation of pt's statu s upon admission and devise an individualized program for Gait Training, and Wheel Chair mobility Inability to transfer - to improve, our physical therapists will perform initial evaluation of pt's status upon admission and devise an individualized program for Bed mobility Need for home safety evaluation - to improve, our physical therapists will perform initial evaluatio n of pt's status upon admission and devise an individualized program for Home Evaluation Need in caregiver upon discharge - to improve, our physical therapists will perform initial evaluati on of pt's status upon admission and devise an individualized program for Caregiver Training New precaution - to improve, our physical therapists will perform initial evaluation of pt's status upon admission and devise an individualized program for Patient precaution education Edema - to improve, our physical therapists will perform initial evaluation of pt's status upon admis cristino and devise an individualized program for Elevation Training, and Lymphedema Therapy Having wound - to improve, our physical therapists will perform initial evaluation of pt's status upo n admission and devise an individualized program for Wound Care Poor balance - to improve, our physical therapists will perform initial evaluation of pt's status up on admission and devise an individualized program for Balance Training Poor endurance - to improve, our physical therapists will perform initial evaluation of pt's status upon admission and devise an individualized program for Endurance Training Weakness - to improve, our physical therapists will perform initial evaluation of pt's status upon a dmission and devise an individualized program for Aquatic Therapy, Neuromuscular Reeducation, and Str engthening Achieving independence - to improve, our physical therapists will perform initial evaluation of pt's status upon admission and devise an individualized program for Community Reintegration Activities - Occupational Therapy ADL deficits - to improve, our occupation therapists will perform initial evaluation of pt's status upon admission and devise an individualized program for Bathing, Bed mobility, Community Reintegratio n, Cooking, Dressing, Eating, Fine Motor Skills, Grooming, Homemaking, Kitchen Mobility, Laundry, Pat ient Education, Safety Awareness, Splinting - Positioning, Transfers(Toilet, Tub, Shower), and Wheel Chair Management Need for director of health care marketing - to improve, our occupation therapists will perform initial evaluation of pt's status upon admission and devise an individualized program for Caregiver Training Weakness - to improve, our occupation therapists will perform initial evaluation of pt's status upon admission and devise an individualized program for Aquatic Therapy, Balance, Endurance, UE ROM, and UE strengthening - Other See attached MAR (Medication Administration Record) - Diet Type Continue Regular - will still have SALES OPERATIONS ASSOCIATE evaluate with MD orders due to swallowing difficulties reporte d in pt's chart - Diet - Liquid Texture Continue Regular - Tube Feed Continue N/A - Fall Precaution Bed alarm TABS alarm Wheel chair alarm - Diet - Solid Texture Continue Regular - Shower allowing shower - Respiratory Monitor and assess patient regularly - Safety Fall risk FUNCTIONAL STATUS: UPDATED AT WEEKLY TEAM CONFERENCE - Bladder Same accident frequency: 7-Ind - No accidents in the past 7 days - Bowel Same accident frequency: 7-Ind - No accidents in the past 7 days - Walking Same score based on distance walked: 0(N/A) Same score based on distance walked: 3(>=150ft) - Wheelchair Same score based on distance traveled: 0(N/A) FUNCTIONAL STATUS: - Self-Care A. Eating Ind B. Grooming Kylee C. Bathing sup D. Dressing - Upper sup E. Dressing - Lower Vin F. Toileting Ind - Sphincter Control G. Bladder control Kylee H. Bowel control Kylee - Transfers Control I. Bed/Chair/Wheelchair sup J. Toilet Kylee K. Tub/Shower sup - Locomotion L. Walk/Wheelchair (B) Kylee M. Stairs modA - Communication N. Comprehension (B) sup O. Expression (B) sup - Social Cognition P. Social Interaction Vin Q. Problem Solving sup R. Memory Kylee - Endurance Good - Balance Good - Safety Awareness Good QI SCORES: - Self-Care A. Eating 02-Substantial/maximal assistance B. Oral hygiene 05-Setup or clean-up assistance C. Toileting hygiene 03-Partial/moderate assistance E. Shower/bathe self 88-Not attempted due to medical condition or safety concerns F. Upper body dressing 03-Partial/moderate assistance G. Lower body dressing 03-Partial/moderate assistance H. Putting on/taking off footwear 03-Partial/moderate assistance - Mobility A. Roll left and right 03-Partial/moderate assistance B. Sit to lying 03-Partial/moderate assistance C. Lying to sitting on side of bed 03-Partial/moderate assistance D. Sit to stand 03-Partial/moderate assistance E. Chair/vyk-zx-lpeef transfer 03-Partial/moderate assistance F. Toilet transfer 03-Partial/moderate assistance G. Car transfer 88-Not attempted due to medical condition or safety concerns I. Walk 10 feet 03-Partial/moderate assistance J. Walk 50 feet with two turns 03-Partial/moderate assistance K. Walk 150 feet 03-Partial/moderate assistance L. Walking 10 feet on uneven surfaces 88-Not attempted due to medical condition or safety concerns M. 1 step (curb) 88-Not attempted due to medical condition or safety concerns N. 4 steps 88-Not attempted due to medical condition or safety concerns O. 12 steps 88-Not attempted due to medical condition or safety concerns P. Picking up object 88-Not attempted due to medical condition or safety concerns R. Wheel 50 feet with two turns S. Wheel 150 feet - Bladder and Bowel Bladder continence Bowel continence - Endurance Fair - Balance Fair - Safety Awareness Fair CURRENT FUNC. DEFICITS: Self-Care, Mobility, Endurance, Balance, and Safety Awareness SIGNATURE PANEL: (CHIEF SUBSTATION OPERATOR)
[2021-07-16] MEDS: ATORVASTATIN 40 MG TAB PO SCH (19:09)
[2021-07-16] MEDS: EZETIMIBE 10 MG TAB PO SCH (19:09)
[2021-07-17] MEDS: HEPARIN 5000 UNIT/ML 1 ML VIAL SQ SCH ×2 (06:15→18:02)
[2021-07-17] MEDS: ASPIRIN 81 MG CHEWABLE TABLET PO SCH (08:00)
[2021-07-17] MEDS: CLOPIDOGREL 75 MG TABLET PO SCH (08:00)
[2021-07-17] MEDS: AMLODIPINE 10 MG TAB PO SCH (08:00)
[2021-07-17] MEDS: ENSURE ENLIVE 237 ML CAN PO SCH ×2 (08:00→19:57)
[2021-07-17] MEDS: CRANBERRY FRUIT EXTRACT 400 MG CAP PO SCH ×2 (08:00→19:55)
[2021-07-17] MEDS: METOPROLOL TAR 50 MG TAB PO SCH ×2 (08:01→19:56)
[2021-07-17] MEDS: HYDRALAZINE HCL 10 MG TABLET PO SCH ×2 (08:01→19:56)
[2021-07-17] MEDS: DOCUSATE NA 100 MG CAP PO SCH ×2 (08:01→19:57)
[2021-07-17] MEDS: FE SULF/FA/VIT B COMP & C TAB PO SCH (08:01)
[2021-07-17 08:46] LABS: Absolute Lymphocytes (CBC) 1.2 K/uL (0.7-4.9); Basophils % 0.3 % (0-1.3); Hematocrit 28.9 % (39.6-49.0); Lymphocytes % 7.1 % (15.3-44.8); MPV 7.7 fL (7.6-11.3); RBC Red Blood Cell Count 3.12 M/uL (4.33-5.43)
[2021-07-17] MEDS: AMOX/K CLAV 500 MG TAB PO SCH ×2 (09:52→19:56)
--- NOTE | 2021-07-17 09:58 | PN ---
Date of Progress Note: 07/16/2021 Subjective: The patient was seen this morning for followup. He was lying in bed, not in distress. Denies any new complaints. No chest pain. No shortness of breath. Objective: HEENT: Unremarkable. Lungs: Clear to auscultation. No wheezing. No rales. Heart: Sounds normal. Abdomen: Soft. Bowel sounds normal. No guarding, rigidity, tenderness, or distention. Extremities: No leg edema. Skin: Surgical incision area from the left chest and abdominal wall is healing very well. No signs of any cellulitis. No gapping. Laboratory Data: White count 13.8, hemoglobin 9.5, platelets 352. Sodium 137, potassium 4.9, chlori de 104, bicarb 24, BUN 30, creatinine 1.78, glucose 91. Impression: 1.Leukocytosis. 2.Anemia. 3.Chronic kidney disease. 4.Hypertension. Plan: We will go ahead and continue current medications. Continue current DVT prophylaxis, anti-reyes telet therapy, and antihypertensive medications. We will get a chest x-ray done. Urine has not show n any signs of infection and I will see him tomorrow for followup. JESSICA/MODL Voice ID: [id number] Report ID: [id number]
[2021-07-17] MEDS: TRAMADOL HCL 50 MG TAB PO PRN (12:01)
--- NOTE | 2021-07-17 17:29 | R.PN ---
PROGRESS NOTES ENCOUNTER DATE AND TIME: 07/17/2021 17:27 (TIME PIECE REPAIRER) NAME JOANN SANDERS DATE OF : 1950 DATE OF ADMISSION: 07/12/2021 22:23 (TIME PIECE REPAIRER) s/p L heart cath 06/27/2021 and Thoraco-abdominal aneurysm repair 07/02/2021HIEF COMPLAINT: Thoraco-abdominal aneurysm repair, debility. SUBJECTIVE: Pt denied any depression. Pt denied any Shortness of Breath. WBC 13.8, neutrophils 78.1, Hgb 9.5, Route Salesman 1.78. Ambulated 205' with contact guard assistance using a rolling walker. VITAL SIGNS Temperature: 97.1 F SBP/DBP: 169/75 Pulse: 77 Resp: 16 MEDICATION ALLERGIES: No Known Drug Allergies (NKDA) ENVIRONMENTAL ALLERGIES: No Known - Substance Allergies None Known - Other Allergies None Known NURSING: - Shower allowing shower PRECAUTIONS: - Fall Precaution Bed alarm TABS alarm Wheel chair alarm - Respiratory Monitor and assess patient regularly - Safety Fall risk ACTIVITIES OOB only with supervision THERAPIES: - Dietary and Nutrition Adequate Nutrition. Nutritional Education. Nutritional Supplements. - Occupational Therapy Cognitive Retraining. Evaluate and Treat. ADL Training. Adaptive Equipment. Community Reintegration. Eating. Household Tasks. Patient/Family Education. Safety Awareness. Transfer Training. UE ROM. UE [facility]. - Speech Therapy Cognitive Training. Expressive Language Skills. Memory Strategies. Receptive Language Skills. Speech Intelligibility Training. - Physical Therapy Balance Training. Evaluate and Treat. Gait Training. LE ROM. LE Strengthening. Medical Equipment Asse ssment and Evaluation. Mobility Training. Modalities Training. Patient/Family Education. Safety Aware ness. Transfer Training. PHYSICAL EXAM - Gen Alert and awake Lying in bed No apparent distress Oriented to: person, time, and place - Skin Extensive post surgical abdominal wound is healing well. Two smaller left flank wounds are open with little drainage. - Eyes No abnormalities - ENMT No abnormalities - Neck No abnormalities - CVS RRR - Chest No abnormalities - Abd + bowel sounds - GI Soft Deferred - No abnormalities - Ext Mild bilateral lower extremity edema. - MSK 4/5 weakness in both lower extremities. - Neuro No focal deficits - Psych No abnormalities ASSESSMENT: Pt. 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 was independent/mod-I in Locomotion, Safety Awarenes s, Social Cognition, Balance, Transfers Control, Sphincter Control, Self-Care, Communication, and End urance; and he had good Locomotion, Safety Awareness, Social Cognition, Balance, Transfers Control, S phincter Control, Self-Care, Communication, and Endurance.Currently, he has deficits of Locomotion, S afety Awareness, Balance, Transfers Control, Self-Care, and Endurance.Pt. is now referred to [facility] for acute in-patient rehabilitation in order to maximize patient's function al independence in activities of daily living, strength, ROM, and mobility.- Rehab Goal Patient has realistic goal of being discharged at assistance level Min A- IND to reside at Home with Family/Relatives. MDM/PLAN: - Physical Therapy Gait dysfunction - to improve, our physical therapists will perform initial evaluation of pt's statu s upon admission and devise an individualized program for Gait Training, and Wheel Chair mobility Inability to transfer - to improve, our physical therapists will perform initial evaluation of pt's status upon admission and devise an individualized program for Bed mobility Need for home safety evaluation - to improve, our physical therapists will perform initial evaluatio n of pt's status upon admission and devise an individualized program for Home Evaluation Need in caregiver upon discharge - to improve, our physical therapists will perform initial evaluati on of pt's status upon admission and devise an individualized program for Caregiver Training New precaution - to improve, our physical therapists will perform initial evaluation of pt's status upon admission and devise an individualized program for Patient precaution education Edema - to improve, our physical therapists will perform initial evaluation of pt's status upon admi ssion and devise an individualized program for Elevation Training, and Lymphedema Therapy Having wound - to improve, our physical therapists will perform initial evaluation of pt's status up on admission and devise an individualized program for Wound Care Poor balance - to improve, our physical therapists will perform initial evaluation of pt's status up on admission and devise an individualized program for Balance Training Poor endurance - to improve, our physical therapists will perform initial evaluation of pt's status upon admission and devise an individualized program for Endurance Training Weakness - to improve, our physical therapists will perform initial evaluation of pt's status upon a dmission and devise an individualized program for Aquatic Therapy, Neuromuscular Reeducation, and Str engthening Achieving independence - to improve, our physical therapists will perform initial evaluation of pt's status upon admission and devise an individualized program for Community Reintegration Activities - Occupational Therapy ADL deficits - to improve, our occupation therapists will perform initial evaluation of pt's status upon admission and devise an individualized program for Bathing, Bed mobility, Community Reintegratio n, Cooking, Dressing, Eating, Fine Motor Skills, Grooming, Homemaking, Kitchen Mobility, Laundry, Pat ient Education, Safety Awareness, Splinting - Positioning, Transfers(Toilet, Tub, Shower), and Wheel Chair Management Need for rental boats caretaker - to improve, our occupation therapists will perform initial evaluation of pt's status upon admission and devise an individualized program for Caregiver Training Weakness - to improve, our occupation therapists will perform initial evaluation of pt's status upon admission and devise an individualized program for Aquatic Therapy, Balance, Endurance, UE ROM, and UE strengthening - Other See attached MAR (Medication Administration Record) - Diet Type Continue Regular - will still have MOTOR VE[employer]S INTERPRETER evaluate with MD orders due to swallowing difficulties reporte d in pt's chart - Diet - Liquid Texture Continue Regular - Tube Feed Continue N/A - Fall Precaution Bed alarm TABS alarm Wheel chair alarm - Diet - Solid Texture Continue Regular - Shower allowing shower - Respiratory Monitor and assess patient regularly - Safety Fall risk FUNCTIONAL STATUS: UPDATED AT WEEKLY TEAM CONFERENCE - Bladder Same accident frequency: 7-Ind - No accidents in the past 7 days - Bowel Same accident frequency: 7-Ind - No accidents in the past 7 days - Walking Same score based on distance walked: 0(N/A) Same score based on distance walked: 3(>=150ft) - Wheelchair Same score based on distance traveled: 0(N/A) FUNCTIONAL STATUS: - Self-Care A. Eating Ind B. Grooming Kylee C. Bathing sup D. Dressing - Upper sup E. Dressing - Lower Vin F. Toileting Ind - Sphincter Control G. Bladder control Kylee H. Bowel control Kylee - Transfers Control I. Bed/Chair/Wheelchair sup J. Toilet Kylee K. Tub/Shower sup - Locomotion L. Walk/Wheelchair (B) Kylee M. Stairs modA - Communication N. Comprehension (B) sup O. Expression (B) sup - Social Cognition P. Social Interaction Vin Q. Problem Solving sup R. Memory Kylee - Endurance Good - Balance Good - Safety Awareness Good QI SCORES: - Self-Care A. Eating 02-Substantial/maximal assistance B. Oral hygiene 05-Setup or clean-up assistance C. Toileting hygiene 03-Partial/moderate assistance E. Shower/bathe self 88-Not attempted due to medical condition or safety concerns F. Upper body dressing 03-Partial/moderate assistance G. Lower body dressing 03-Partial/moderate assistance H. Putting on/taking off footwear 03-Partial/moderate assistance - Mobility A. Roll left and right 03-Partial/moderate assistance B. Sit to lying 03-Partial/moderate assistance C. Lying to sitting on side of bed 03-Partial/moderate assistance D. Sit to stand 03-Partial/moderate assistance E. Chair/pjg-tj-ddgws transfer 03-Partial/moderate assistance F. Toilet transfer 03-Partial/moderate assistance G. Car transfer 88-Not attempted due to medical condition or safety concerns I. Walk 10 feet 03-Partial/moderate assistance J. Walk 50 feet with two turns 03-Partial/moderate assistance K. Walk 150 feet 03-Partial/moderate assistance L. Walking 10 feet on uneven surfaces 88-Not attempted due to medical condition or safety concerns M. 1 step (curb) 88-Not attempted due to medical condition or safety concerns N. 4 steps 88-Not attempted due to medical condition or safety concerns O. 12 steps 88-Not attempted due to medical condition or safety concerns P. Picking up object 88-Not attempted due to medical condition or safety concerns R. Wheel 50 feet with two turns S. Wheel 150 feet - Bladder and Bowel Bladder continence Bowel continence - Endurance Fair - Balance Fair - Safety Awareness Fair CURRENT FUNC. DEFICITS: Self-Care, Mobility, Endurance, Balance, and Safety Awareness SIGNATURE PANEL: (TIME PIECE REPAIRER)
[2021-07-17] MEDS: ACETAMINOPHEN 325 MG TABLET PO PRN (19:55)
[2021-07-17] MEDS: EZETIMIBE 10 MG TAB PO SCH (19:55)
[2021-07-17] MEDS: ATORVASTATIN 40 MG TAB PO SCH (19:57)
[2021-07-17 22:24] LABS: Albumin 2.9 g/dL (3.4-5.0); Potassium 4.9 mmol/L (3.5-5.1); Prealbumin 18.7 mg/dL (20-40)
[2021-07-18] MEDS: HEPARIN 5000 UNIT/ML 1 ML VIAL SQ SCH ×2 (06:04→17:46)
[2021-07-18] MEDS: FE SULF/FA/VIT B COMP & C TAB PO SCH (08:08)
[2021-07-18] MEDS: CRANBERRY FRUIT EXTRACT 400 MG CAP PO SCH ×2 (08:08→20:41)
[2021-07-18] MEDS: AMOX/K CLAV 500 MG TAB PO SCH (08:08)
[2021-07-18] MEDS: ASPIRIN 81 MG CHEWABLE TABLET PO SCH (08:08)
[2021-07-18] MEDS: HYDRALAZINE HCL 10 MG TABLET PO SCH ×2 (08:08→20:41)
[2021-07-18] MEDS: DOCUSATE NA 100 MG CAP PO SCH ×2 (08:08→20:41)
[2021-07-18] MEDS: CLOPIDOGREL 75 MG TABLET PO SCH (08:09)
[2021-07-18] MEDS: METOPROLOL TAR 50 MG TAB PO SCH ×2 (08:09→20:41)
[2021-07-18] MEDS: AMLODIPINE 10 MG TAB PO SCH (08:09)
[2021-07-18] MEDS: ENSURE ENLIVE 237 ML CAN PO SCH ×2 (08:10→17:08)
[2021-07-18] MEDS: TRAMADOL HCL 50 MG TAB PO PRN ×4 (08:10→21:57)
[2021-07-18] MEDS ORDERED: HYDRALAZINE HCL 10 MG TABLET PO ONE (08:48)
--- NOTE | 2021-07-18 09:55 | P.RH.PN ---
Estimated Length of Stay: 16 Expected Discharge Date: 07/24/21 Discharge Disposition Plan: Home Family Support: Yes Halfway Goal: Mobility, Transfers, Self Care Vital Signs: Last Vital Signs Temp 97.6 F 07/18/21 07:14 Pulse 80 07/18/21 08:57 Resp 16 07/18/21 09:04 BP 137/63 07/18/21 08:57 Pulse Ox 98 07/18/21 09:04 Laboratory: Laboratory Last Values WBC 16.60 K/uL (4.3-10.9) H D 07/17/21 08:15 RBC 3.12 M/uL (4.33-5.43) L 07/17/21 08:15 Hgb 9.9 g/dL (13.6-17.9) L 07/17/21 08:15 Hct 28.9 % (39.6-49.0) L 07/17/21 08:15 MCV 92.5 fL (80-100) 07/17/21 08:15 MCH 31.8 pg (27.0-35.0) 07/17/21 08:15 MCHC 34.4 g/dL (32.0-36.0) 07/17/21 08:15 RDW 14.5 % (12.1-15.2) 07/17/21 08:15 Plt Count 409 K/uL (152-406) H 07/17/21 08:15 MPV 7.7 fL (7.6-11.3) 07/17/21 08:15 Neutrophils % 83.4 % (41.7-73.7) H 07/17/21 08:15 Lymphocytes % 7.1 % (15.3-44.8) L 07/17/21 08:15 Monocytes % 5.6 % (3.3-12.3) 07/17/21 08:15 Eosinophils % 3.6 % (0-4.4) 07/17/21 08:15 Basophils % 0.3 % (0-1.3) 07/17/21 08:15 Absolute Neutrophils 13.8 K/uL (1.8-8.0) H 07/17/21 08:15 Segmented Neutrophils 87 % (40-80) H 07/13/21 05:31 Absolute Lymphocytes 1.2 K/uL (0.7-4.9) 07/17/21 08:15 Lymphocytes 8 % (15-42) L 07/13/21 05:31 Monocytes 7 % (0-10) 07/13/21 05:31 Absolute Monocytes 0.9 K/uL (0.1-1.3) 07/17/21 08:15 Eosinophils 3 % (0-3) 07/13/21 05:31 Absolute Eosinophils 0.6 K/uL (0-0.5) H 07/17/21 08:15 Absolute Basophils 0.1 K/uL (0-0.5) 07/17/21 08:15 Metamyelocytes 1 % (0-0) H 07/13/21 05:31 Platelet Estimate Adeq 07/13/21 05:31 Morphology Comment Not seen (NOT SEEN) 07/13/21 05:31 Sodium 135 mmol/L (136-145) L 07/17/21 08:15 Potassium 4.9 mmol/L (3.5-5.1) 07/17/21 08:15 Chloride 102 mmol/L (98-107) 07/17/21 08:15 Carbon Dioxide 21 mmol/L (21-32) 07/17/21 08:15 BUN 31 mg/dL (7-18) H 07/17/21 08:15 Creatinine 1.75 mg/dL (0.55-1.3) H 07/17/21 08:15 Estimated GFR 39 mL/min (=/>90) L 07/17/21 08:15 Glucose 95 mg/dL (74-106) 07/17/21 08:15 Calcium 9.3 mg/dL (8.5-10.1) 07/17/21 08:15 Magnesium 2.0 mg/dL (1.8-2.4) 07/17/21 08:15 Albumin 2.9 g/dL (3.4-5.0) L 07/17/21 08:15 Prealbumin 18.7 mg/dL (20-40) L 07/17/21 08:15 Urine Color Yellow (Yellow) 07/13/21 04:12 Urine Appearance Clear (Clear) 07/13/21 04:12 Urine pH 7.5 (5.0-7.0) H 07/13/21 04:12 Ur Specific Lynn 1.020 (1.005-1.030) 07/13/21 04:12 Glucose (UA)(Auto) Negative (Negative) 07/13/21 04:12 Urine Ketones Negative (Negative) 07/13/21 04:12 Urine Blood 1+ (Negative) H 07/13/21 04:12 Urine Nitrite Negative (Negative) 07/13/21 04:12 Urine Bilirubin Negative (Negative) 07/13/21 04:12 Urine Urobilinogen 1.0 mg/dL (0.2-1.0) 07/13/21 04:12 Ur Leukocyte Esterase Negative (Negative) 07/13/21 04:12 Urine RBC 5-10 /HPF (NONE SEEN) H 07/13/21 04:12 Urine WBC 5-10 /HPF (<5) H 07/13/21 04:12 Ur Squamous Epith Cells <5 /HPF (NONE SEEN) 07/13/21 04:12 Urine Bacteria <20 /HPF (NONE SEEN) 07/13/21 04:12 Urine Culture Reflexed Not needed 07/13/21 04:12 Urine Total Protein 2+ (Negative) H 07/13/21 04:12 SARS-CoV-2 Rap RNA(RT-PCR) Negative (NEGATIVE) 07/12/21 22:45 Weight: 177 lb Wound Present: No Closed Surgical Incision Present: Yes Physician Update: Labs reviewed and are stable. He fatigues quickly walking 70' at stanby assistance. Also transfers are at standby assistance. He is refusing shower except once. He is a moderate assistance for bathing, independent for grooming, moderate assistance for lower body dressing. He has moderate pain and fatigue with his debility. Summary: Patient's care plan and watcher automat long goods goals have been reviewed and revised as necessary. Please see the Rehabilitation Signature page for all necessary signatures.
--- NOTE | 2021-07-18 12:10 | RAD REPORT ---
EXAM DESCRIPTION: RAD - Abdomen 1 View (KUB) - 07/18/2021 11:59 am CLINICAL HISTORY: Bloody stool to R/O GI bleeding COMPARISON: No comparisons FINDINGS: No free air or pneumatosis. Numerous surgical clips are seen in the left mid abdomen and i n the right upper quadrant. Air and stool are present in nondilated colon. A few mildly prominent air -filled small bowel loops are present. Ileus or enteritis are favored over bowel obstructive process. No suspicious calcifications. Edema is seen in the subcutaneous fatty tissues lateral left mid abdom en No significant bony findings IMPRESSION: Enteritis or ileus findings are evident without obstruction, free air or emergent findin g. Edema changes are evident in the subcutaneous fat lateral left mid abdomen.
--- NOTE | 2021-07-18 12:12 | RAD REPORT ---
EXAM DESCRIPTION: RAD - Chest Single View - 07/18/2021 11:59 am CLINICAL HISTORY: R/O Pneumonia COMPARISON: July 16 TECHNIQUE: AP portable chest image was obtained 07/18/2021 11:59 am . FINDINGS: No new or progressive right lung field finding. Left hemidiaphragm elevation is again note d. Left costophrenic angle blunting is present. Left base infiltrate could be masked by the chronic p leural, parenchymal and diaphragmatic changes. No new finding seen from July 16 imaging. Heart and vasculature are normal. No measurable pleural effusion and no pneumothorax. No acute bony abnormality seen. No acute aortic findings suspected. IMPRESSION: Stable chest as detailed. Chronic pleural, parenchymal and diaphragmatic changes in the left base could mask focal infiltrate.
[2021-07-18] MEDS: levoFLOXacin 250 MG TAB PO SCH (17:03)
--- NOTE | 2021-07-18 17:29 | PN ---
Date of Progress Note: 07/17/2021 Subjective: The patient was seen for followup this morning. No new complaints or problems reported by patient. Lying in bed, not in distress. Denies any cough, congestion, shortness of breath. Objective: Vital Signs: Reviewed. HEENT: Unremarkable. Lungs: Clear to auscultation. No rales. No wheezing. Not in respiratory distress. Heart: Sounds normal. Abdomen: Soft. Bowel sounds normal. No guarding, rigidity, tenderness, or distention. Extremities: No leg edema. Laboratory Data: Chest x-ray has shown left lower lobe infiltrate. Impression: 1. Pneumonia. 2. Anemia. 3. Chronic kidney disease, stage 3. 4. Hypertension. Plan: We will continue current antihypertensive medication. Continue DVT prophylaxis with heparin. We will monitor blood pressure and if necessary make adjustment on medications. Start the patient on Augmentin for pneumonia. Today's lab results reviewed. JESSICA/DARWIN Voice ID: [id number] Report ID: [id number] SAROJ
[2021-07-18] MEDS: EZETIMIBE 10 MG TAB PO SCH (20:40)
[2021-07-18] MEDS: ATORVASTATIN 40 MG TAB PO SCH (20:41)
[2021-07-18] MEDS: metroNIDAZOLE 250 MG TABLET PO SCH (20:42)
[2021-07-19 04:50] LABS: Absolute Lymphocytes (CBC) 1.2 K/uL (0.7-4.9); Basophils % 0.3 % (0-1.3); Hematocrit 28.4 % (39.6-49.0); Lymphocytes % 9.9 % (15.3-44.8); MPV 7.6 fL (7.6-11.3)
[2021-07-19] MEDS: HEPARIN 5000 UNIT/ML 1 ML VIAL SQ SCH ×2 (06:07→18:13)
[2021-07-19] MEDS: ENSURE ENLIVE 237 ML CAN PO SCH ×2 (07:57→20:43)
[2021-07-19] MEDS: FE SULF/FA/VIT B COMP & C TAB PO SCH (07:58)
[2021-07-19] MEDS: DOCUSATE NA 100 MG CAP PO SCH ×2 (07:58→20:41)
[2021-07-19] MEDS: metroNIDAZOLE 250 MG TABLET PO SCH ×3 (07:58→20:40)
[2021-07-19] MEDS: ASPIRIN 81 MG CHEWABLE TABLET PO SCH (07:58)
[2021-07-19] MEDS: CLOPIDOGREL 75 MG TABLET PO SCH (07:59)
[2021-07-19] MEDS: CRANBERRY FRUIT EXTRACT 400 MG CAP PO SCH ×2 (07:59→20:40)
[2021-07-19] MEDS: AMLODIPINE 10 MG TAB PO SCH (07:59)
[2021-07-19] MEDS: HYDRALAZINE HCL 10 MG TABLET PO SCH ×2 (07:59→20:40)
[2021-07-19] MEDS: METOPROLOL TAR 50 MG TAB PO SCH ×2 (07:59→20:41)
[2021-07-19] MEDS: levoFLOXacin 250 MG TAB PO SCH (08:00)
[2021-07-19] MEDS: TRAMADOL HCL 50 MG TAB PO PRN ×2 (08:00→22:05)
[2021-07-19] MEDS: ACETAMINOPHEN 325 MG TABLET PO PRN (11:15)
--- NOTE | 2021-07-19 11:30 | PN ---
Date of Progress Note: 07/18/2021 Subjective: The patient was seen this afternoon for followup. No new complaints or problems reporte d by him except he says that he had to strain to have a bowel movement for last 2 to 3 days and today while he was straining, he did have bowel movement, but he saw some blood in the commode and some of it looked dark, some of it was bright red. Denies any abdominal pain, nausea, vomiting. No cough, congestion, shortness of breath. Objective: Vital Signs: Reviewed. HEENT: Unremarkable. Lungs: Clear to auscultation. Heart: Sounds normal. Abdomen: Soft. Bowel sounds normal. No guarding, rigidity, tenderness, or distention. Extremities: No leg edema. Impression: 1.Constipation. 2.Rectal bleeding. 3.Enteritis. 4.Pneumonia. Plan: We will continue current antihypertensive medication except increased dose of hydralazine from 10 mg 2 times a day to 20 mg 2 times a day on basis of his blood pressure readings. We will continu e metoprolol. Continue to encourage patient to drink about 60 ounces of water daily. We will repeat blood work tomorrow. Discontinue his Augmentin that he is currently taking for pneumonia. Instead of that we will start him on Levaquin and metronidazole per order. Stool test was ordered and I will see him tomorrow for followup. The patient does not have any signs, symptoms of bowel obstruction. He is tolerating diet very well. We will continue his current diet and add stool softener. Details and pl an of treatment discussed with him. JESSICA/MODL Voice ID: [id number] Report ID: [id number]
--- NOTE | 2021-07-19 11:42 | PN ---
Date of Progress Note: 07/19/2021 Subjective: The patient was seen this morning for followup. No new complaints, problems reported by patient. This morning, no abdominal pain. No nausea, vomiting, and no bleeding per rectum after ye sterday's episode. No cough, congestion, shortness of breath. Objective: Vital Signs: Reviewed. HEENT: Unremarkable. Lungs: Clear to auscultation. No rhonchi. No rales. Heart: Sounds normal. Abdomen: Soft. Bowel sounds normal. No guarding, rigidity, tenderness, or distention. Extremities: No leg edema. Skin: Left lateral chest wall and anterolateral abdominal wall has surgical scar that has healed vinayak y well. No signs of any redness, gapping, discharge, bleeding, or swelling. Laboratory Data: White count this morning 11.7, hemoglobin 9.6, platelets 340. Impression: 1.Hypertension. 2.Anemia due to acute blood loss. 3.Coronary artery disease. 4.Pneumonia. 5.Enteritis. Plan: We will go ahead and continue current medications. The patient was encouraged to continue to keep himself well hydrated with about 50-60 ounces of water a day. Continue current antibiotic. We will go ahead and have the patient start taking stool softener daily and we will see him tomorrow for followu tomasa LOPEZ/DARWIN Voice ID: [id number] Report ID: [id number]
[2021-07-19] MEDS: ATORVASTATIN 40 MG TAB PO SCH (20:40)
[2021-07-19] MEDS: EZETIMIBE 10 MG TAB PO SCH (20:40)
[2021-07-20] MEDS: HEPARIN 5000 UNIT/ML 1 ML VIAL SQ SCH ×2 (05:51→18:15)
[2021-07-20] MEDS: DOCUSATE NA 100 MG CAP PO SCH ×2 (07:55→20:21)
[2021-07-20] MEDS: levoFLOXacin 250 MG TAB PO SCH (07:55)
[2021-07-20] MEDS: ENSURE ENLIVE 237 ML CAN PO SCH ×2 (07:56→20:21)
[2021-07-20] MEDS: CLOPIDOGREL 75 MG TABLET PO SCH (07:56)
[2021-07-20] MEDS: ASPIRIN 81 MG CHEWABLE TABLET PO SCH (07:56)
[2021-07-20] MEDS: CRANBERRY FRUIT EXTRACT 400 MG CAP PO SCH ×2 (07:56→20:19)
[2021-07-20] MEDS: metroNIDAZOLE 250 MG TABLET PO SCH ×3 (07:56→20:19)
[2021-07-20] MEDS: AMLODIPINE 10 MG TAB PO SCH (07:57)
[2021-07-20] MEDS: HYDRALAZINE HCL 10 MG TABLET PO SCH ×2 (07:57→20:20)
[2021-07-20] MEDS: ACETAMINOPHEN 325 MG TABLET PO PRN ×2 (07:58→20:19)
[2021-07-20] MEDS: FE SULF/FA/VIT B COMP & C TAB PO SCH (07:58)
[2021-07-20] MEDS: METOPROLOL TAR 50 MG TAB PO SCH ×2 (07:58→20:20)
--- NOTE | 2021-07-20 10:48 | PN ---
Date of Progress Note: 07/20/2021 Subjective: The patient was seen this morning for followup. He was doing his therapy this morning, sitting in wheelchair. No abdominal pain. No rectal bleeding yesterday. No bowel movement yesterda y. No nausea, no vomiting. Objective: Vital Signs: Reviewed. HEENT: Unremarkable. Lungs: Clear to auscultation. Heart: Sounds normal. Abdomen: Soft. Bowel sounds normal. No guarding, rigidity, tenderness, or distention. Extremities: No leg edema. Impression: 1.Pneumonia. 2.Enteritis. 3.Anemia due to acute blood loss. 4.Chronic kidney disease, stage 3. 5.Hypertension. 6.Hyperlipidemia. Plan: Patient's blood pressure this morning was 126/68. We will continue current antihypertensive m edication. Continue current statin therapy. Continue current empiric antibiotics. We will go ahead and repeat blood work day after tomorrow. The patient was encouraged to continue to drink about 60 cc of water every day. JESSICA/MODL Voice ID: [id number] Report ID: [id number]
[2021-07-20] MEDS ORDERED: FLEET ENEMA ADULT PR ONE (16:28)
--- NOTE | 2021-07-20 18:07 | R.PN ---
PROGRESS NOTES ENCOUNTER DATE AND TIME: 07/20/2021 17:46 (OFFSET MACHINE OPERATOR) NAME JOANN SANDERS DATE OF : 1950 DATE OF ADMISSION: 07/12/2021 22:23 (OFFSET MACHINE OPERATOR) s/p L heart cath 06/27/2021 and Thoraco-abdominal aneurysm repair 07/02/2021HIEF COMPLAINT: Thoraco-abdominal aneurysm repair, debility. SUBJECTIVE: Pt denied any depression. Pt denied any Shortness of Breath. WBC 11.7, neutrophils 75.6, Hgb 9.6, Alumni Coordinator 1.75, prealbumin 18.7. Ambulated 310' with standby assistance using a rolling walker. Up and down 10 steps with standby assi stance. VITAL SIGNS Temperature: 97.8 F SBP/DBP: 126/68 Pulse: 82 Resp: 16 MEDICATION ALLERGIES: No Known Drug Allergies (NKDA) ENVIRONMENTAL ALLERGIES: No Known - Substance Allergies None Known - Other Allergies None Known NURSING: - Shower allowing shower PRECAUTIONS: - Fall Precaution Bed alarm TABS alarm Wheel chair alarm - Respiratory Monitor and assess patient regularly - Safety Fall risk ACTIVITIES OOB only with supervision THERAPIES: - Dietary and Nutrition Adequate Nutrition. Nutritional Education. Nutritional Supplements. - Occupational Therapy Cognitive Retraining. Evaluate and Treat. ADL Training. Adaptive Equipment. Community Reintegration. Eating. Household Tasks. Patient/Family Education. Safety Awareness. Transfer Training. UE ROM. UE [facility]. - Speech Therapy Cognitive Training. Expressive Language Skills. Memory Strategies. Receptive Language Skills. Speech Intelligibility Training. - Physical Therapy Balance Training. Evaluate and Treat. Gait Training. LE ROM. LE Strengthening. Medical Equipment Asse ssment and Evaluation. Mobility Training. Modalities Training. Patient/Family Education. Safety Aware ness. Transfer Training. PHYSICAL EXAM - Gen Alert and awake Lying in bed No apparent distress Oriented to: person, time, and place - Skin Extensive post surgical abdominal wound is healing well. Two smaller left flank wounds are open with little drainage. - Eyes No abnormalities - ENMT No abnormalities - Neck No abnormalities - CVS RRR - Chest No abnormalities - Abd + bowel sounds - GI Soft Deferred - No abnormalities - Ext Mild bilateral lower extremity edema. - MSK 4/5 weakness in both lower extremities. - Neuro No focal deficits - Psych No abnormalities ASSESSMENT: Pt. 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 was independent/mod-I in Locomotion, Safety Awarenes s, Social Cognition, Balance, Transfers Control, Sphincter Control, Self-Care, Communication, and End urance; and he had good Locomotion, Safety Awareness, Social Cognition, Balance, Transfers Control, S phincter Control, Self-Care, Communication, and Endurance.Currently, he has deficits of Locomotion, S afety Awareness, Balance, Transfers Control, Self-Care, and Endurance.Pt. is now referred to [facility] for acute in-patient rehabilitation in order to maximize patient's function al independence in activities of daily living, strength, ROM, and mobility.- Rehab Goal Patient has realistic goal of being discharged at assistance level Min A- IND to reside at Home with Family/Relatives. MDM/PLAN: - Physical Therapy Gait dysfunction - to improve, our physical therapists will perform initial evaluation of pt's statu s upon admission and devise an individualized program for Gait Training, and Wheel Chair mobility Inability to transfer - to improve, our physical therapists will perform initial evaluation of pt's status upon admission and devise an individualized program for Bed mobility Need for home safety evaluation - to improve, our physical therapists will perform initial evaluatio n of pt's status upon admission and devise an individualized program for Home Evaluation Need in caregiver upon discharge - to improve, our physical therapists will perform initial evaluati on of pt's status upon admission and devise an individualized program for Caregiver Training New precaution - to improve, our physical therapists will perform initial evaluation of pt's status upon admission and devise an individualized program for Patient precaution education Edema - to improve, our physical therapists will perform initial evaluation of pt's status upon admi ssion and devise an individualized program for Elevation Training, and Lymphedema Therapy Having wound - to improve, our physical therapists will perform initial evaluation of pt's status up on admission and devise an individualized program for Wound Care Poor balance - to improve, our physical therapists will perform initial evaluation of pt's status up on admission and devise an individualized program for Balance Training Poor endurance - to improve, our physical therapists will perform initial evaluation of pt's status upon admission and devise an individualized program for Endurance Training Weakness - to improve, our physical therapists will perform initial evaluation of pt's status upon a dmission and devise an individualized program for Aquatic Therapy, Neuromuscular Reeducation, and Str engthening Achieving independence - to improve, our physical therapists will perform initial evaluation of pt's status upon admission and devise an individualized program for Community Reintegration Activities - Occupational Therapy ADL deficits - to improve, our occupation therapists will perform initial evaluation of pt's status upon admission and devise an individualized program for Bathing, Bed mobility, Community Reintegratio n, Cooking, Dressing, Eating, Fine Motor Skills, Grooming, Homemaking, Kitchen Mobility, Laundry, Pat ient Education, Safety Awareness, Splinting - Positioning, Transfers(Toilet, Tub, Shower), and Wheel Chair Management Need for behavioral health care coordinator - to improve, our occupation therapists will perform initial evaluation of pt's status upon admission and devise an individualized program for Caregiver Training Weakness - to improve, our occupation therapists will perform initial evaluation of pt's status upon admission and devise an individualized program for Aquatic Therapy, Balance, Endurance, UE ROM, and UE strengthening - Other See attached MAR (Medication Administration Record) - Diet Type Continue Regular - will still have INFUSION NURSE evaluate with MD orders due to swallowing difficulties reporte d in pt's chart - Diet - Liquid Texture Continue Regular - Tube Feed Continue N/A - Fall Precaution Bed alarm TABS alarm Wheel chair alarm - Diet - Solid Texture Continue Regular - Shower allowing shower - Respiratory Monitor and assess patient regularly - Safety Fall risk FUNCTIONAL STATUS: UPDATED AT WEEKLY TEAM CONFERENCE - Bladder Same accident frequency: 7-Ind - No accidents in the past 7 days - Bowel Same accident frequency: 7-Ind - No accidents in the past 7 days - Walking Same score based on distance walked: 0(N/A) Same score based on distance walked: 3(>=150ft) - Wheelchair Same score based on distance traveled: 0(N/A) FUNCTIONAL STATUS: - Self-Care A. Eating Ind B. Grooming Kylee C. Bathing sup D. Dressing - Upper sup E. Dressing - Lower Vin F. Toileting Ind - Sphincter Control G. Bladder control Kylee H. Bowel control Kylee - Transfers Control I. Bed/Chair/Wheelchair sup J. Toilet Kylee K. Tub/Shower sup - Locomotion L. Walk/Wheelchair (B) Kylee M. Stairs modA - Communication N. Comprehension (B) sup O. Expression (B) sup - Social Cognition P. Social Interaction Vin Q. Problem Solving sup R. Memory Kylee - Endurance Good - Balance Good - Safety Awareness Good QI SCORES: - Self-Care A. Eating 02-Substantial/maximal assistance B. Oral hygiene 05-Setup or clean-up assistance C. Toileting hygiene 03-Partial/moderate assistance E. Shower/bathe self 88-Not attempted due to medical condition or safety concerns F. Upper body dressing 03-Partial/moderate assistance G. Lower body dressing 03-Partial/moderate assistance H. Putting on/taking off footwear 03-Partial/moderate assistance - Mobility A. Roll left and right 03-Partial/moderate assistance B. Sit to lying 03-Partial/moderate assistance C. Lying to sitting on side of bed 03-Partial/moderate assistance D. Sit to stand 03-Partial/moderate assistance E. Chair/[id number] transfer 03-Partial/moderate assistance F. Toilet transfer 03-Partial/moderate assistance G. Car transfer 88-Not attempted due to medical condition or safety concerns I. Walk 10 feet 03-Partial/moderate assistance J. Walk 50 feet with two turns 03-Partial/moderate assistance K. Walk 150 feet 03-Partial/moderate assistance L. Walking 10 feet on uneven surfaces 88-Not attempted due to medical condition or safety concerns M. 1 step (curb) 88-Not attempted due to medical condition or safety concerns N. 4 steps 88-Not attempted due to medical condition or safety concerns O. 12 steps 88-Not attempted due to medical condition or safety concerns P. Picking up object 88-Not attempted due to medical condition or safety concerns R. Wheel 50 feet with two turns S. Wheel 150 feet - Bladder and Bowel Bladder continence Bowel continence - Endurance Fair - Balance Fair - Safety Awareness Fair CURRENT FUNC. DEFICITS: Self-Care, Mobility, Endurance, Balance, and Safety Awareness SIGNATURE PANEL: ([facility])
[2021-07-20] MEDS: EZETIMIBE 10 MG TAB PO SCH (20:19)
[2021-07-20] MEDS: ATORVASTATIN 40 MG TAB PO SCH (20:20)
[2021-07-21 05:47] VITALS: BMI 23.1
[2021-07-21] MEDS: HEPARIN 5000 UNIT/ML 1 ML VIAL SQ SCH ×2 (06:21→18:15)
[2021-07-21] MEDS: AMLODIPINE 10 MG TAB PO SCH (09:10)
[2021-07-21] MEDS: CRANBERRY FRUIT EXTRACT 400 MG CAP PO SCH ×2 (09:11→20:10)
[2021-07-21] MEDS: HYDRALAZINE HCL 10 MG TABLET PO SCH ×2 (09:11→20:10)
[2021-07-21] MEDS: METOPROLOL TAR 50 MG TAB PO SCH ×2 (09:11→20:11)
[2021-07-21] MEDS: levoFLOXacin 250 MG TAB PO SCH (09:12)
[2021-07-21] MEDS: ENSURE ENLIVE 237 ML CAN PO SCH ×2 (09:12→20:00)
[2021-07-21] MEDS: CLOPIDOGREL 75 MG TABLET PO SCH (09:12)
[2021-07-21] MEDS: DOCUSATE NA 100 MG CAP PO SCH ×2 (09:12→20:00)
[2021-07-21] MEDS: FE SULF/FA/VIT B COMP & C TAB PO SCH (09:12)
[2021-07-21] MEDS: metroNIDAZOLE 250 MG TABLET PO SCH ×3 (09:13→20:11)
[2021-07-21] MEDS: ASPIRIN 81 MG CHEWABLE TABLET PO SCH (09:13)
--- NOTE | 2021-07-21 20:03 | PN ---
Date of Progress Note: 07/21/2021 Subjective: The patient was seen this morning. He used fleets edema yesterday, had a bowel movement after that, but he says his stool was very dark. Denies any abdominal pain, nausea, or vomiting. H as a good appetite. Objective: Vital Signs: Reviewed. HEENT: Examination unremarkable. Lungs: Clear to auscultation. Cardiac: Heart sounds normal. Abdomen: Soft. Bowel sounds normal. No guarding, rigidity, tenderness, or distention. Extremities: No leg edema. Skin: Left lateral chest and abdominal wall have some large surgical scar, which has healed very wel l. No signs of redness gapping, discharge, or bleeding. Has clean, sterile dressing. No evidence o f any stains from the drainage. Impression: 1.Thoracoabdominal aortic aneurysm, status post surgery. 2.Hypertension. 3.Chronic kidney disease stage 3. 4.Constipation. Plan: We will continue current medications. Continue current stool softener. The patient was encou raged to continue to drink enough water. We will continue current antihypertensive medication and he xiang for DVT prophylaxis. I will see him tomorrow for followup. JESSICA/MODL Voice ID: [id number] Report ID: [id number]
[2021-07-21] MEDS: ACETAMINOPHEN 325 MG TABLET PO PRN (20:09)
[2021-07-21] MEDS: ATORVASTATIN 40 MG TAB PO SCH (20:10)
[2021-07-21] MEDS: EZETIMIBE 10 MG TAB PO SCH (20:10)
[2021-07-22 05:51] LABS: Absolute Lymphocytes (CBC) 1.7 K/uL (0.7-4.9); Basophils % 0.9 % (0-1.3); Hematocrit 32.9 % (39.6-49.0); Lymphocytes % 18.7 % (15.3-44.8); MPV 7.7 fL (7.6-11.3); RBC Red Blood Cell Count 3.53 M/uL (4.33-5.43)
[2021-07-22 05:56] LABS: Magnesium 2.5 mg/dL (1.8-2.4); Potassium 4.6 mmol/L (3.5-5.1)
[2021-07-22] MEDS: HEPARIN 5000 UNIT/ML 1 ML VIAL SQ SCH ×2 (06:11→18:01)
[2021-07-22] MEDS: METOPROLOL TAR 50 MG TAB PO SCH ×4 (08:00→19:18)
[2021-07-22] MEDS: FE SULF/FA/VIT B COMP & C TAB PO SCH (08:33)
[2021-07-22] MEDS: DOCUSATE NA 100 MG CAP PO SCH ×2 (08:33→19:19)
[2021-07-22] MEDS: ASPIRIN 81 MG CHEWABLE TABLET PO SCH (08:33)
[2021-07-22] MEDS: CRANBERRY FRUIT EXTRACT 400 MG CAP PO SCH ×2 (08:34→19:17)
[2021-07-22] MEDS: HYDRALAZINE HCL 10 MG TABLET PO SCH ×2 (08:34→19:17)
[2021-07-22] MEDS: CLOPIDOGREL 75 MG TABLET PO SCH (08:34)
[2021-07-22] MEDS: AMLODIPINE 10 MG TAB PO SCH (08:34)
[2021-07-22] MEDS: metroNIDAZOLE 250 MG TABLET PO SCH ×3 (08:34→19:17)
[2021-07-22] MEDS: levoFLOXacin 250 MG TAB PO SCH (08:34)
[2021-07-22] MEDS: ENSURE ENLIVE 237 ML CAN PO SCH ×2 (09:37→19:19)
[2021-07-22] MEDS: NA CHLORIDE 0.9% 1,000 ML IV SCH ×2 (10:30→19:15)
--- NOTE | 2021-07-22 10:55 | PN ---
Date of Progress Note: 07/22/2021 Subjective: The patient was seen this morning for followup. No new complaints reported by him this morning. No abdominal pain. No nausea. No vomiting. He did have bowel movement yesterday, which h e described as normal stool, but dark looking. Objective: Vital Signs: Reviewed. HEENT: Unremarkable. Lungs: Clear to auscultation. Heart: Sounds normal. Abdomen: Soft. Bowel sounds normal. No guarding, rigidity, tenderness, or distention. Extremities: No leg edema. Laboratory Data: White count 9, hemoglobin 11, platelets 280. Sodium 137, potassium 4.6, chloride 1 03, bicarb 26, BUN 58, creatinine 1.97, glucose 108. Impression: 1.Acute kidney injury. 2.Volume depletion. 3.Guaiac-positive stool. 4.Hypertension. 5.Hyperlipidemia. Plan: The patient is trying to drink 50-60 ounce of water a day. His renal function has gone up com pared to before, so we will go ahead and give him IV fluid with normal saline 100 cc/hour. We will r epeat blood work tomorrow morning, increase dose of metoprolol from 50 mg 2 times a day to 75 mg 2 ti mes a day in view of blood pressure readings, and details and plan of treatment discussed with the patient. I will see him tomorrow for followup. JESSICA/MODL Voice ID: [id number] Report ID: [id number]
[2021-07-22] MEDS: EZETIMIBE 10 MG TAB PO SCH (19:17)
[2021-07-22] MEDS: ATORVASTATIN 40 MG TAB PO SCH (19:19)
[2021-07-22] MEDS: ACETAMINOPHEN 325 MG TABLET PO PRN (19:19)
[2021-07-23] MEDS: NA CHLORIDE 0.9% 1,000 ML IV SCH ×2 (04:24→14:05)
[2021-07-23 04:37] LABS: Absolute Lymphocytes (CBC) 1.7 K/uL (0.7-4.9); Basophils % 1.1 % (0-1.3); Hematocrit 28.8 % (39.6-49.0); Lymphocytes % 17.9 % (15.3-44.8); MPV 7.8 fL (7.6-11.3); RBC Red Blood Cell Count 3.09 M/uL (4.33-5.43)
[2021-07-23 04:49] LABS: Potassium 4.7 mmol/L (3.5-5.1)
[2021-07-23] MEDS: HEPARIN 5000 UNIT/ML 1 ML VIAL SQ SCH ×2 (05:55→17:48)
[2021-07-23] MEDS: DOCUSATE NA 100 MG CAP PO SCH ×2 (07:58→20:06)
[2021-07-23] MEDS: CLOPIDOGREL 75 MG TABLET PO SCH (07:58)
[2021-07-23] MEDS: FE SULF/FA/VIT B COMP & C TAB PO SCH (07:58)
[2021-07-23] MEDS: ASPIRIN 81 MG CHEWABLE TABLET PO SCH (07:58)
[2021-07-23] MEDS: HYDRALAZINE HCL 10 MG TABLET PO SCH ×2 (07:59→20:04)
[2021-07-23] MEDS: AMLODIPINE 10 MG TAB PO SCH (07:59)
[2021-07-23] MEDS: levoFLOXacin 250 MG TAB PO SCH (07:59)
[2021-07-23] MEDS: METOPROLOL TAR 50 MG TAB PO SCH ×2 (08:00→20:04)
[2021-07-23] MEDS: ENSURE ENLIVE 237 ML CAN PO SCH ×2 (08:00→20:25)
[2021-07-23] MEDS: CRANBERRY FRUIT EXTRACT 400 MG CAP PO SCH ×2 (08:01→20:04)
[2021-07-23] MEDS: metroNIDAZOLE 250 MG TABLET PO SCH ×3 (08:02→20:05)
--- NOTE | 2021-07-23 17:27 | R.PN ---
PROGRESS NOTES ENCOUNTER DATE AND TIME: 07/23/2021 17:23 (NURSING INFORMATICS CLINICAL ANALYST) NAME JOANN SANDERS DATE OF : 1950 DATE OF ADMISSION: 07/12/2021 22:23 (NURSING INFORMATICS CLINICAL ANALYST) s/p L heart cath 06/27/2021 and Thoraco-abdominal aneurysm repair 07/02/2021HIEF COMPLAINT: Thoraco-abdominal aneurysm repair, debility. SUBJECTIVE: Pt denied any depression. Pt denied any Shortness of Breath. WBC 9.4 neutrophils 63.9, Hgb 9.7, Drawbench Operator Helper 1.86, prealbumin 18.7. Ambulated 200' with standby assistance using a rolling walker. Up and down 12 steps with standby assi stance. Self-propelled wheelchair 250' with independence. VITAL SIGNS Temperature: 98.0 F SBP/DBP: 146/66 Pulse: 85 Resp: 16 MEDICATION ALLERGIES: No Known Drug Allergies (NKDA) ENVIRONMENTAL ALLERGIES: No Known - Substance Allergies None Known - Other Allergies None Known NURSING: - Shower allowing shower PRECAUTIONS: - Fall Precaution Bed alarm TABS alarm Wheel chair alarm - Respiratory Monitor and assess patient regularly - Safety Fall risk ACTIVITIES OOB only with supervision THERAPIES: - Dietary and Nutrition Adequate Nutrition. Nutritional Education. Nutritional Supplements. - Occupational Therapy Cognitive Retraining. Evaluate and Treat. ADL Training. Adaptive Equipment. Community Reintegration. Eating. Household Tasks. Patient/Family Education. Safety Awareness. Transfer Training. UE ROM. UE [facility]. - Speech Therapy Cognitive Training. Expressive Language Skills. Memory Strategies. Receptive Language Skills. Speech Intelligibility Training. - Physical Therapy Balance Training. Evaluate and Treat. Gait Training. LE ROM. LE Strengthening. Medical Equipment Asse ssment and Evaluation. Mobility Training. Modalities Training. Patient/Family Education. Safety Aware ness. Transfer Training. PHYSICAL EXAM - Gen Alert and awake Lying in bed No apparent distress Oriented to: person, time, and place - Skin Extensive post surgical abdominal wound is healing well. Two smaller left flank wounds are open with little drainage. - Eyes No abnormalities - ENMT No abnormalities - Neck No abnormalities - CVS RRR - Chest No abnormalities - Abd + bowel sounds - GI Soft Deferred - No abnormalities - Ext Mild bilateral lower extremity edema. - MSK 4/5 weakness in both lower extremities. - Neuro No focal deficits - Psych No abnormalities ASSESSMENT: Pt. 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 was independent/mod-I in Locomotion, Safety Awarenes s, Social Cognition, Balance, Transfers Control, Sphincter Control, Self-Care, Communication, and End urance; and he had good Locomotion, Safety Awareness, Social Cognition, Balance, Transfers Control, S phincter Control, Self-Care, Communication, and Endurance.Currently, he has deficits of Locomotion, S afety Awareness, Balance, Transfers Control, Self-Care, and Endurance.Pt. is now referred to [facility] for acute in-patient rehabilitation in order to maximize patient's function al independence in activities of daily living, strength, ROM, and mobility.- Rehab Goal Patient has realistic goal of being discharged at assistance level Min A- IND to reside at Home with Family/Relatives. MDM/PLAN: - Physical Therapy Gait dysfunction - to improve, our physical therapists will perform initial evaluation of pt's statu s upon admission and devise an individualized program for Gait Training, and Wheel Chair mobility Inability to transfer - to improve, our physical therapists will perform initial evaluation of pt's status upon admission and devise an individualized program for Bed mobility Need for home safety evaluation - to improve, our physical therapists will perform initial evaluatio n of pt's status upon admission and devise an individualized program for Home Evaluation Need in caregiver upon discharge - to improve, our physical therapists will perform initial evaluati on of pt's status upon admission and devise an individualized program for Caregiver Training New precaution - to improve, our physical therapists will perform initial evaluation of pt's status upon admission and devise an individualized program for Patient precaution education Edema - to improve, our physical therapists will perform initial evaluation of pt's status upon admi ssion and devise an individualized program for Elevation Training, and Lymphedema Therapy Having wound - to improve, our physical therapists will perform initial evaluation of pt's status up on admission and devise an individualized program for Wound Care Poor balance - to improve, our physical therapists will perform initial evaluation of pt's status up on admission and devise an individualized program for Balance Training Poor endurance - to improve, our physical therapists will perform initial evaluation of pt's status upon admission and devise an individualized program for Endurance Training Weakness - to improve, our physical therapists will perform initial evaluation of pt's status upon a dmission and devise an individualized program for Aquatic Therapy, Neuromuscular Reeducation, and Str engthening Achieving independence - to improve, our physical therapists will perform initial evaluation of pt's status upon admission and devise an individualized program for Community Reintegration Activities - Occupational Therapy ADL deficits - to improve, our occupation therapists will perform initial evaluation of pt's status upon admission and devise an individualized program for Bathing, Bed mobility, Community Reintegratio n, Cooking, Dressing, Eating, Fine Motor Skills, Grooming, Homemaking, Kitchen Mobility, Laundry, Pat ient Education, Safety Awareness, Splinting - Positioning, Transfers(Toilet, Tub, Shower), and Wheel Chair Management Need for aged or disabled carer - to improve, our occupation therapists will perform initial evaluation of pt's status upon admission and devise an individualized program for Caregiver Training Weakness - to improve, our occupation therapists will perform initial evaluation of pt's status upon admission and devise an individualized program for Aquatic Therapy, Balance, Endurance, UE ROM, and UE strengthening - Other See attached MAR (Medication Administration Record) - Diet Type Continue Regular - will still have MACHINE OPERATOR HOP PICKER evaluate with MD orders due to swallowing difficulties reporte d in pt's chart - Diet - Liquid Texture Continue Regular - Tube Feed Continue N/A - Fall Precaution Bed alarm TABS alarm Wheel chair alarm - Diet - Solid Texture Continue Regular - Shower allowing shower - Respiratory Monitor and assess patient regularly - Safety Fall risk FUNCTIONAL STATUS: UPDATED AT WEEKLY TEAM CONFERENCE - Bladder Same accident frequency: 7-Ind - No accidents in the past 7 days - Bowel Same accident frequency: 7-Ind - No accidents in the past 7 days - Walking Same score based on distance walked: 0(N/A) Same score based on distance walked: 3(>=150ft) - Wheelchair Same score based on distance traveled: 0(N/A) FUNCTIONAL STATUS: - Self-Care A. Eating Ind B. Grooming Kylee C. Bathing sup D. Dressing - Upper sup E. Dressing - Lower Vin F. Toileting Ind - Sphincter Control G. Bladder control Kylee H. Bowel control Kylee - Transfers Control I. Bed/Chair/Wheelchair sup J. Toilet Kylee K. Tub/Shower sup - Locomotion L. Walk/Wheelchair (B) Kylee M. Stairs modA - Communication N. Comprehension (B) sup O. Expression (B) sup - Social Cognition P. Social Interaction Vin Q. Problem Solving sup R. Memory Kylee - Endurance Good - Balance Good - Safety Awareness Good QI SCORES: - Self-Care A. Eating 02-Substantial/maximal assistance B. Oral hygiene 05-Setup or clean-up assistance C. Toileting hygiene 03-Partial/moderate assistance E. Shower/bathe self 88-Not attempted due to medical condition or safety concerns F. Upper body dressing 03-Partial/moderate assistance G. Lower body dressing 03-Partial/moderate assistance H. Putting on/taking off footwear 03-Partial/moderate assistance - Mobility A. Roll left and right 03-Partial/moderate assistance B. Sit to lying 03-Partial/moderate assistance C. Lying to sitting on side of bed 03-Partial/moderate assistance D. Sit to stand 03-Partial/moderate assistance E. Chair/[id number]-mm-[id number] transfer 03-Partial/moderate assistance F. Toilet transfer 03-Partial/moderate assistance G. Car transfer 88-Not attempted due to medical condition or safety concerns I. Walk 10 feet 03-Partial/moderate assistance J. Walk 50 feet with two turns 03-Partial/moderate assistance K. Walk 150 feet 03-Partial/moderate assistance L. Walking 10 feet on uneven surfaces 88-Not attempted due to medical condition or safety concerns M. 1 step (curb) 88-Not attempted due to medical condition or safety concerns N. 4 steps 88-Not attempted due to medical condition or safety concerns O. 12 steps 88-Not attempted due to medical condition or safety concerns P. Picking up object 88-Not attempted due to medical condition or safety concerns R. Wheel 50 feet with two turns S. Wheel 150 feet - Bladder and Bowel Bladder continence Bowel continence - Endurance Fair - Balance Fair - Safety Awareness Fair CURRENT FUNC. DEFICITS: Self-Care, Mobility, Endurance, Balance, and Safety Awareness SIGNATURE PANEL: (NURSING INFORMATICS CLINICAL ANALYST)
--- NOTE | 2021-07-23 19:08 | PN ---
Date of Progress Note: 07/23/2021 Subjective: The patient was seen this morning for followup. No new complaints or problems reported by him. Objective: Vital Signs: Reviewed. HEENT: Unremarkable. Lungs: Clear to auscultation. Heart: Sounds normal. Abdomen: Soft. Bowel sounds normal. No guarding, rigidity, tenderness, or distention. Extremities: No leg edema. Laboratory Data: White count 9.4, hemoglobin 9.7. Sodium 139, potassium 4.7, chloride 107, bicarb 26, BUN 49, creatinine 1.86, glucose 101. Impression: 1. Acute kidney disease. 2. Volume depletion. 3. Hypertension. 4. Hyperlipidemia. 5. Paraparesis. Plan: We will continue current medications. The patient's renal function has improved. We will continue current IV fluid, repeat blood work tomorrow morning and will continue antihypertensive medication and DVT prophylaxis. The patient is scheduled to go home from rehab point of view tomorrow after I review his tomorrow morning's blood work results, I will be able to discharge him to go home tomorrow also. JESSICA/MODL Voice ID: [id number] Report ID: [id number] SAROJ
[2021-07-23] MEDS: ATORVASTATIN 40 MG TAB PO SCH (20:05)
[2021-07-23] MEDS: EZETIMIBE 10 MG TAB PO SCH (20:05)
[2021-07-23] MEDS: ACETAMINOPHEN 325 MG TABLET PO PRN (20:05)
[2021-07-23 20:30] VITALS: TEMP 97.2
[2021-07-24] MEDS: NA CHLORIDE 0.9% 1,000 ML IV SCH (00:06)
[2021-07-24 04:43] LABS: Absolute Lymphocytes (CBC) 1.6 K/uL (0.7-4.9); Basophils % 0.6 % (0-1.3); Hematocrit 27.7 % (39.6-49.0); Lymphocytes % 15.5 % (15.3-44.8); MPV 7.6 fL (7.6-11.3); RBC Red Blood Cell Count 2.97 M/uL (4.33-5.43)
[2021-07-24 04:59] LABS: Magnesium 2.1 mg/dL (1.8-2.4); Potassium 4.7 mmol/L (3.5-5.1)
[2021-07-24] MEDS: HEPARIN 5000 UNIT/ML 1 ML VIAL SQ SCH ×2 (06:46→08:00)
[2021-07-24 07:42] VITALS: BP 154/70
[2021-07-24] MEDS: ENSURE ENLIVE 237 ML CAN PO SCH (08:00)
[2021-07-24] MEDS: DOCUSATE NA 100 MG CAP PO SCH (08:00)
[2021-07-24] MEDS: AMLODIPINE 10 MG TAB PO SCH (08:05)
[2021-07-24] MEDS: FE SULF/FA/VIT B COMP & C TAB PO SCH (09:33)
[2021-07-24] MEDS: ASPIRIN 81 MG CHEWABLE TABLET PO SCH (09:33)
[2021-07-24] MEDS: CRANBERRY FRUIT EXTRACT 400 MG CAP PO SCH (09:33)
[2021-07-24] MEDS: METOPROLOL TAR 50 MG TAB PO SCH (09:34)
[2021-07-24] MEDS: levoFLOXacin 250 MG TAB PO SCH (09:34)
[2021-07-24] MEDS: CLOPIDOGREL 75 MG TABLET PO SCH (09:34)
[2021-07-24] MEDS: HYDRALAZINE HCL 10 MG TABLET PO SCH (09:34)
[2021-07-24] MEDS: metroNIDAZOLE 250 MG TABLET PO SCH (09:38)
--- NOTE | 2021-07-25 06:39 | DS ---
Date of Discharge: 07/24/2021 Disposition: Discharged to go home. Physical Examination: HEENT: Unremarkable. Lungs: Clear to auscultation. Cardiac: Heart sounds normal. Abdomen: Soft. Bowel sounds normal. No guarding, rigidity, tenderness, or distention. Extremities: No leg edema. Neuro: Patient's power in both lower extremity is normal compared to before. He has normal muscle p ower in both feet, both legs, and both thighs with normal movements of both feet and ankle. Laboratory Data: His last CBC from yesterday: White count 9.4, hemoglobin 9.7, platelets 239. Init ial CBC on 07/13/2021: White count 10.3, hemoglobin 8.6, platelets 258. His last CBC today: White count 10, hemoglobin 9.7, platelets 223. Today, sodium 139, potassium 4.7, chloride 109, bicarb 24, BUN 34, creatinine 1.58, and glucose 92. His initial BUN when he came in on 07/13/2021, BUN was 30, creatinine 1.88, and his creatinine was also 1.8 and 1.9 range at [facility] before he came t o [facility]. His highest creatinine at our hospital was 1.97 with BUN 58, and this was on 021. Stool occult blood was positive. Urine culture negative. Discharge Medication/instruction: Take medications as below. 1.Aspirin 81 mg 1 tablet by mouth daily with food. 2.Tylenol 500 mg 1 tablet by mouth 4 times a day as needed for pain. 3.Colace 100 mg 1 tablet by mouth 2 times a day. 4.Amlodipine 10 mg take 1 tablet by mouth daily in morning. 5.Atorvastatin 40 mg take 1 tablet by mouth daily at bedtime. 6.Clopidogrel 75 mg take 1 tablet by mouth daily. 7.Ezetimibe 10 mg take 1 tablet by mouth daily at bedtime. 8.Hydralazine 10 mg take 2 tablets by mouth 2 times a day. 9.Metoprolol 50 mg take 1-1/2 tablet by mouth 2 times a day. Follow up at my office week on Friday, which is 07/31/2021, at 9 a.m. Hospital Course: This is a 70-year-old very pleasant male patient admitted to rehab floor after he h ad extensive vascular surgery at [facility]. Patient had grade 4 thoracoabdominal aneurysm r epair with multi branch graft with individual branch construction of celiac artery, superior mesenter ic artery, right renal artery, left renal artery. After this extensive surgery, patient recovered we ll and was brought to our hospital to rehab floor as he had paraparesis and he recovered very well fr om his paraparesis. He participated well with the physical therapy and occupational therapy and his bilateral leg weakness has improved to the extent that he is back to his normal self again. His othe r medical problem remained stable except we had to make some adjustment on antihypertensive medicatio n during this hospitalization. He received heparin 5000 units subcutaneous injection every 12 hours for DVT prophylaxis and continued to receive his antiplatelet therapy. He did have some acute kidney injury 2 days prior to the discharge and we started him on IV fluid, normal saline at 100 cc/hour an d that actually improved his renal function drastically. Overall, patient is feeling much better and is being discharged to go home in stable condition. Final Diagnoses: 1.Paraparesis, improved. 2.Acute kidney injury. 3.Chronic kidney disease, stage 3B. 4.Hypertension. 5.Hyperlipidemia. 6.Coronary artery disease. 7.Thoracoabdominal aortic aneurysm. 8.Celiac artery stenosis. 9.Superior mesenteric artery stenosis. 10.Bilateral renal artery stenosis. JESSICA/MODL Voice ID: [id number] Report ID: [id number]
--- NOTE | 2021-07-30 11:12 | HP ---
Date of Admission: 07/12/2021 Chief Complaint: Weakness. History Of Present Illness: This is a 70-year-old pleasant male, who had extensive vascular surgery at [facility] and he was brought into our hospital rehab floor last night for inpatient rehab therapy. Recently, the patient was diagnosed as having significantly rather large abdominal aortic aneurysm with significant atherosclerosis of his aorta. He was admitted to [facility] where he had extensive vascular surgery and postoperatively now after he recovered, he was sent to our hosp ital. When I saw him this morning, he was lying in bed, not in distress. He has some discomfort, no t necessarily pain around the surgical incision site, but denies any abdominal pain. No nausea. No vomiting. No constipation or diarrhea. He has some cough with chest congestion, coughs up some mucu s from time to time with blood-stained mucus again from time to time that started after surgery and i t has improved over a period of time. His appetite is fairly good as he describes. Allergies: TO CODEINE CAUSING ITCHING. Medications: Current medication list reviewed. Prior to hospital admission outpatient medication li st is as below, 1.Aspirin 81 mg daily. 2.Clopidogrel 75 mg daily. 3.Ezetimibe 10 mg daily. 4.Metoprolol tartrate 50 mg two times a day. 5.Olmesartan 40 mg daily. 6.Simvastatin 80 mg daily. 7.Sildenafil 20 mg two times a week as needed. Review of Systems: Constitutional: Generalized weakness. Respiratory: Cough and congestion. All other systems reviewed and negative. Past Medical History: Significant for impaired fasting glucose, COPD, asbestosis, hypertension, mixe d hyperlipidemia, peripheral vascular disease, carotid artery stenosis, known alcoholic fatty liver d isease, renal cyst, and benign prostatic hypertrophy. Significant for coronary artery disease. On 2020, he had a cardiac cath done at [facility] showing coronary artery disease for which he did not require intervention and it showed left main free of any significant disease and 40 % stenosis in the LAD, circumflex, and RCA in the mid portions. Past Surgical History: Had angioplasty with stent placement in left leg in the past and cholecystect pilar. Recent surgery on July 02, which was for repair of thoracoabdominal aneurysm repair, reconst ruction of celiac artery, superior mesenteric artery, left renal artery, and right renal artery. Family History: Father , had pancreatic cancer and colon cancer. Mother , had myocardial in fraction. Brother has asthma and polio. Sister, breast cancer. Social History: The patient is a current everyday smoker. Use of alcohol, negative. Physical Examination: Vital Signs: Height 5 feet 10 inches, weight 177 pounds, oxygen saturation 98%, blood pressure 131/6 0, respiratory rate 17, and pulse 65. General: Awake, alert, oriented, not in distress. HEENT: Head atraumatic, normocephalic. Conjunctivae nonerythematous. Sclerae white. Mouth, no thr ush or edema noted. Ears/Nose, no mass, lesion, discharge noted. Neck: Supple. No JVD, lymph nodes, bruit, thyromegaly noted. Lungs: Bilateral good equal air entry. Clear to auscultation. No rhonchi. No rales. Heart: Normal heart sounds, no murmur or gallop. Abdomen: Soft, bowel sounds normal. No guarding, rigidity, tenderness, mass, hepatosplenomegaly, dis tention, or bruit noted. Extremities: No leg edema. No calf tenderness. Lymphatics: No lymph node enlargement in neck, supraclavicular, infraclavicular region. Neuro: No focal neurological deficit. Chest: Unremarkable. External Genitalia: Deferred. Rectal: Deferred. Skin Examination: The patient has a large surgical scar that extends from left upper lateral chest a nd it comes down to left lower quadrant of his abdomen. There are no sutures, no sandra. This surg ical scar has healed very well. No signs of any gapping. No bleeding. No signs of any redness or s welling surrounding. Lateral to this scar, there are two transverse small scar and this is probably the site where he probably had some drainage tube in place after surgery, but currently there are no such tubes. The patient's bedsheet was stained with yellowish color fluid and this is likely dischar ge from his surgical incisions and scar. Laboratory Data: White count 10.3, hemoglobin 8.6, and platelets 258. Sodium 137, potassium 4.4, ch loride 108, bicarb 21, BUN 30, creatinine 1.88, glucose 86, serum albumin 2.2. COVID-19 test negativ e. Urinalysis; 5 to 10 rbc's, 5 to 10 wbc's, bacteria less than 20, nitrite negative, and leukocyte esterase negative. Impression: 1.Debility. 2.Generalized weakness. 3.Chronic kidney disease, stage 3B. 4.Mild nutrition, severe. 5.Anemia, unspecified. 6.Coronary artery disease. 7.Peripheral vascular disease. 8.Hypertension. 9.Carotid artery stenosis. 10.Thoracoabdominal aortic aneurysm, status post surgery. 11.Superior mesenteric artery stenosis, status post surgery. 12.Renal artery stenosis, status post surgery. 13.Chronic obstructive pulmonary disease. 14.Hyperlipidemia, mixed. 15.Carotid artery stenosis. Plan: We will go ahead and admit the patient to hospital for further evaluation and management of th is problem. The patient will be admitted to rehab floor. We will consult Dr. Marshall from Rehab to manage his rehab therapy. We will continue his current medications. Monitor his blood pressure and if necessary, make adjustment on antihypertensive medication and continue his cholesterol therapy. The patient's renal function and anemia problem are same as what it was in [place] and I have reviewe d available records from [place]. We will go ahead and order incentive spirometry for him. I have a dvised nursing staff to put clean sterile gauze on his surgical scar area since he has some clear dagobertodelphine foote. Nutritional supplement will be ordered to help with his malnutrition problem. I will see him tomorrow for followup. JESSICA/MODL Voice ID: [id number]
== END 2021-07-24 10:00 | disposition home health service (06) | DRG 949 ==
LOC: 5TH 22:23
PROVIDERS: ADMIT Internal Medicine; ATTEND Internal Medicine
DX: Z48.812 Encounter for surgical aftercare following surgery on the circulatory system (principal); J18.9 Pneumonia, unspecified organism; G82.20 Paraplegia, unspecified; D62 Acute posthemorrhagic anemia; K62.5 Hemorrhage of anus and rectum; N17.9 Acute kidney failure, unspecified; I25.10 Atherosclerotic heart disease of native coronary artery without angina pectoris; E78.5 Hyperlipidemia, unspecified; I73.9 Peripheral vascular disease, unspecified; M54.9 Dorsalgia, unspecified; R06.00 Dyspnea, unspecified; I65.29 Occlusion and stenosis of unspecified carotid artery; I12.9 Hypertensive chronic kidney disease with stage 1 through stage 4 chronic kidney disease, or unspecified chronic kidney disease; K59.00 Constipation, unspecified; K52.9 Noninfective gastroenteritis and colitis, unspecified; E86.9 Volume depletion, unspecified; N18.32 Chronic kidney disease, stage 3b; Z20.822 Contact with and (suspected) exposure to COVID-19
CPT/HCPCS: 36415; 71045; 71046; 74018; 80048; 81001; 82040; 82274; 83735; 84134; 85025; 87045; 87046; 87086; 87088; 87177; 87209; 87324; 87449; 94010; 97110; 97112; 97116; 97161; 97530; 97542; J1644; J7030; U0003

== ENCOUNTER 2023-04-02 19:52 | Emergency (ER) | payer BC, OTHER ==
--- OUTSIDE RECORDS SUMMARY | 2023-04-02 19:55 | XMS REPORT | Continuity of Care Document ---
:1950 Author Organization [facility] t Address [address] [place] [address] Care Team Providers Name Role Phone Aryan Samuels MD Primary Care Physician Soniya Potter MA Attending Clinician Unavailable Dixon Harry MD Attending Clinician Taurus Littlejohn MD Attending Clinician [phone] Chadd Bolanos MD Attending Clinician [phone] Leola Galaviz RN Attending Clinician Unavailable Ivana Hebert MA Attending Clinician Unavailable MOISES VENEGAS Attending Clinician Unavailable VALERIA LEGER Attending Clinician Unavailable MD VALERIA LEGER Attending Clinician Unavailable MD MOISES VENEGAS Attending Clinician Unavailable MOISES VENEGAS Admitting Clinician Unavailable MD MOISES VENEGAS Admitting Clinician Unavailable Payers Payer Name Policy Type Policy Number Effective Date Expiration Date S ource Problems Condition Condition Condition Status Onset Resolution Last Treating Co mments Source Name Details Category Date Date Treatment Clinician Date 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 09-04 st repair repair 00:00: Hospita 00 l Acute Acute Disease Active 2020-08 [facility] kidney kidney 09-04 st injury injury 00:00: Hospita superimpos superimpos 00 l ed on ed on 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 Family History Family Member Diagnosis Comments Start Date Stop Date Source Natural father [facility] mother [facility] Social History Social Habit Start Date Stop Date Quantity Comments Source Gender identity 2021-06-26 Identifies as male M ethodist 10:05:14 gender (finding) Hospital Sexual orientation 2021-06-26 Heterosexual Meth odist 10:05:14 (finding) Hospital History of tobacco Occasional tobacco [facility] use smoker [facility] Alcohol intake 2022-12-11 2022-12-11 Current non-drinker ethodist 00:00:00 00:00:00 of alcohol Hospital (finding) History of Social 2022-12-11 2022-12-[address] function 00:00:00 00:00:00 [facility] Cigarettes smoked 2022-07-10 2022-07-[address] current (pack per 00:00:00 00:00:00 Hospita l day) - Reported Tobacco use and 2022-07-10 2022-07-10 Smokeless tobacco [facility] exposure 00:00:00 00:00:00 non-user [facility] Sex Assigned At [birth year] M [facility] 00:00:00 00:00:00 Hospital Smoking Status Start Date Stop Date Source Occasional tobacco smoker 2022-07-10 00:00:00 [facility] Medications Ordered Filled Start Stop Current Ordering Indication Dosage Frequency Signature Comments Components Source Medication Medication Date Date Medication? Clinician (SIG) Name Name ezetimibe Yes 10mg QD Take 1 Method i (ZETIA) 10 4-19 tablet (10 st mg tablet 14:17: mg total) Hos leann 09 by mouth l daily. amLODIPine Yes 10mg QD Take 1 Metho di (NORVASC) 4-19 tablet (10 st 10 mg 14:17: mg total) Hospita tablet 09 by mouth l daily. gabapentin Yes 100mg Q.08214070 Take 1 Methodi (NEURONTIN) 4-[id number] 100 mg 14:17: 3D (100 mg Hospita capsule 09 total) by l mouth 3 (three) times a day. traMADoL Yes 13116 50mg Q6H Take 1 Method i (ULTRAM) 50 4-19 tablet (50 st mg tablet 14:17: mg total) Hos leann 09 by mouth l every 6 (six) hours as needed for moderate pain .acute pain. docusate 2021-08- No 100mg Q.5D Take 100 Met hodi sodium 1-16 11-[address] (COLACE) 18:24: 00:00 mouth 2 Hospi ta 100 MG 47 :00 (two) l capsule times a day. amitriptyli 2021-08 Yes Method i ne (ELAVIL) 1-12 st 10 MG 00:00: Hospita tablet 00 l atorvastati 2021-08 Yes Method i n (LIPITOR) 1-12 st 40 mg 00:00: Hospita tablet 00 l clopidogreL 2021-08 Yes Method i (PLAVIX) 75 1-12 st mg tablet 00:00: Hospita 00 l DULoxetine 2021-08 Yes Methodi (CYMBALTA) 1-12 st 20 MG 00:00: Hospita capsule 00 l tamsulosin 2021-08 Yes Method[facility] (FLOMAX) 1-03 st 0.4 mg 00:00: Hospita capsule 00 l valsartan 2021-08 No Methodi (DIOVAN) 0-14 11-16 st 160 MG 00:00: 00:00 Hospita tablet 00 :00 l hydrALAZINE 2020-08 Yes 20mg Q.5D Take 2 Meth elie (APRESOLINE 1-[address] ) 10 MG 00:00: (20 mg Hospita tablet 00 total) by l mouth 2 (two) times a day. metoprolol 2020-08 Yes 50mg Q.5D Take 1 Metho di tartrate 1-30 tablet (50 st (LOPRESSOR) 00:00: mg total) H ospita 50 mg 00 by mouth 2 l tablet (two) times a day. Immunizations Ordered Immunization Filled Immunization Date Status Commen ts Source Name Name AMBAR COVID-19 2020-10-20 Completed [facility] MRNA VACCINATION 00:00:00 Hospital Vital Signs Vital Name Observation Time Observation Value Comments Source Systolic blood 2022-12-11 19:16:00 113 mm[Hg] [facility] pressure Diastolic blood 2022-12-11 19:16:00 58 mm[facility]Hg[facility] pressure Heart rate 2022-12-11 19:16:00 71 /min [facility] Body temperature 2022-12-11 19:16:[address] [facility] Body height 2022-12-11 19:16:00 177.8 cm [facility] Body weight 2022-12-11 19:16:00 74.844 kg [facility] BMI 2022-12-11 19:16:00 23.68 kg/m2 [facility] Oxygen saturation in 2022-12-11 19:16:00 97 /min [facility] Arterial blood by Pulse oximetry Procedures Procedure Date / Time Performed Performing Clinician Sour e NON VASCULAR 2023-01-09 19:26:00 [facility] EXTERNAL STUDY ECG 12-LEAD 2022-11-27 13:53:01 [facility] ECG 12-LEAD 2022-07-10 16:08:15 [facility] NON VASCULAR 2022-05-09 14:09:00 [facility] EXTERNAL STUDY US ABDOMINAL EXTERNAL 2022-05-09 13:47:00 [facility] STUDY Plan of Care Planned Activity Planned Date Details Comments Source Future Scheduled 2023-03-27 Screening for [facility] Test 07:26:36 malignant neoplasm of colon (procedure) [code = 046660093] Future Scheduled 2023-03-27 Screening for [facility] Test 07:26:36 malignant neoplasm of colon (procedure) [code = 691463548] Future Scheduled 2023-03-27 Screening for [facility] Test 07:26:36 malignant neoplasm of colon (procedure) [code = 468884042] Future Scheduled 2023-03-27 65+ PNEUMOCOCCAL [facility] Test 07:26:36 VACCINE (1 - PCV) [code = 65+ PNEUMOCOCCAL VACCINE (1 - PCV)] Future Scheduled 2023-03-27 Hepatitis C screening [facility] Test 07:26:36 (procedure) [code = 852444432] Future Scheduled 2023-03-27 [facility] Test 07:26:36 malignant neoplasm of colon (procedure) [code = 543633924] Future Scheduled 2023-03-27 Screening for [facility] Test 07:26:36 malignant neoplasm of colon (procedure) [code = 941586613] Future Scheduled 2023-03-27 SHINGLES VACCINES (1 [facility] Test 07:26:36 of 2) [code = SHINGLES VACCINES (1 of 2)] Future Scheduled 2023-03-27 COVID-19 VACCINE (3 - [facility] Test 07:26:36 Moderna series) [code = COVID-19 VACCINE (3 - Moderna series)] Future Scheduled 2023-03-27 INFLUENZA VACCINE Method [facility] Test 07:26:36 [code = INFLUENZA VACCINE] Encounters Start End Encounter Admission Attending Care Care Encounter Source Date/Time Date/Time Type Type Clinicians Facility Department ID 2023-01-23 2023-01-23 Telephone Stokes, 1.2.840.1 [id number] Methodi 00:00:00 00:00:[address] 3.430.2.7 Hospit a .3.998294 l .8 2023-01-22 2023-01-22 Telephone [facility], .2.840.1 [id number] Methodi 15:20:00 16:36:15 Consult Dixon Garduno 15264.1.[address] 3.430.2.7 Hospit a .3.943685 l .8 2023-01-22 2023-01-22 Outpatient [facility] [id number] [place] 00:00:00 00:00:00 DIXON [address] 2023-01-16 2023-01-16 [facility], 1.2.840.1 [id number] Methodi 10:31:54 23:59:00 Encounter Dixon Garduno 57296.1.[address] 3.430.2.7 Hospit a .3.131081 l .8 2023-01-16 2023-01-16 [facility], 1.2.840.1 [id number] Methodi 10:31:26 23:59:00 Encounter Dixon Garduno 25428.1.[address] 3.430.2.7 Hospit a .3.169020 l .8 2023-01-16 2023-01-16 [facility], 1.2.840.1 [id number] Methodi 10:30:40 10:30:40 Encounter Dixon Garduno 01245.1.[address] 3.430.2.7 Hospit a .3.192924 l .8 2023-01-16 2023-01-16 Outpatient [facility], [facility] [id number] [place] 00:00:00 00:00:00 DIXON 866 Method i 2023-01-16 2023-01-16 [facility] [id number] [place] [address] 00:00:00 00:00:00 DIXON 038 Method i 2023-01-16 2023-01-16 [facility] [id number] [place] 00:00:00 00:00:00 DIXON 126 Method i 2022-12-20 2022-12-20 Telephone [facility], 1.2.840.1 [id number] Methodi 00:00:00 00:00:00 Dixon Garduno [address]480.1.[address] 3.430.2.7 Hospit a .3.296516 l .8 2022-12-13 2022-12-13 Transcribe Annetta, 1.2.840.1 [id number] Methodi 00:00:00 00:00:00 Wilfrido Condon [address]682.1.[address] Nithin 3.430.2.7 Hospi ta .3.827976 l .8 2022-12-13 2022-12-13 Telephone Tariq, 1.2.840.1 [id number] Methodi 00:00:00 00:00:[address] 3.430.2.7 Hospit a .3.492521 l .8 2022-12-13 2022-12-13 Transcribe Annetta, 1.2.840.1 [id number] Methodi 00:00:00 00:00:00 Orders Taurus 07436.1.[address] Nithin 3.430.2.7 Hospi ta .3.696198 l .8 2022-12-11 2022-12-11 Office [facility], 1.2.840.1 [id number] Methodi 14:10:00 16:03:12 Visit Dixon Vargasd 11500.1.[address] 3.430.2.7 Hospit a .3.186251 l .8 2022-12-11 2022-12-11 Travel 1.2.840.1 1.2.877.221 [id number] Methodi 00:00:00 00:00:[address] 3.430.2.7 0.2.7.3.698 Ho spita .3.963686 084.8 l .8 2022-12-11 2022-12-11 Outpatient [facility] [id number] [place] 00:00:00 00:00:00 DIXON Alfred[address] [facility] [address] 2022-12-10 2022-12-10 Telephone Tariq, 1.2.840.1 [id number] Methodi 00:00:00 00:00:[address] 3.430.2.7 Hospit a .3.320137 l .8 2022-11-27 2022-11-27 Office Ángel Mir, 1.2.840.1 [id number] Methodi 09:00:00 09:44:04 Visit Chadd 03129.1.[address] Andrew 3.430.2.7 Hospit a .3.998748 l .8 2022-11-27 2022-11-27 Telephone Leola Galaviz 1.2.840.1 [id number] Methodi 00:00:00 00:00:[address] 3.430.2.7 Hospit a .3.275246 l .8 2022-11-27 2022-11-27 Travel 1.2.840.1 1.2.814.567 [id number] [id number] Methodi 00:00:00 00:00:[address] 3.430.2.7 0.2.7.3.698 Ho spita .3.468808 084.8 l .8 2022-11-27 2022-11-27 Outpatient [facility], [facility] [id number] [place] 00:00:00 00:00:[address] CHADD [address] 2022-10-29 2022-10-29 Travel 1.2.840.1 1.2.403.803 5417 [id number] Methodi 00:00:00 00:00:[address] 3.430.2.7 0.2.7.3.698 Ho spita .3.910923 084.8 l .8 2022-10-21 2022-10-21 Telephone Hebert 1.2.840.1 [id number] Methodi 00:00:00 00:00:00 , Ivana 04663.1.[address] 3.430.2.7 Hospit a .3.008660 l .8 2022-07-10 2022-07-10 Office [facility], 1.2.840.1 [id number] Methodi 09:30:00 10:04:18 Visit Chadd 08072.1.[address] Andrew 3.430.2.7 Hospit a .3.346236 l .8 2022-07-10 2022-07-10 Travel 1.2.840.1 1.2.755.072 2911 [id number] Methodi 00:00:00 00:00:[address] 3.430.2.7 0.2.7.3.698 Ho spita .3.906962 084.8 l .8 2022-07-10 2022-07-10 Outpatient EL-DEREJE, [facility] [id number] [place] 00:00:00 00:00:[address] KINAN [address] 2022-06-11 2022-06-11 Telephone Ángel Mir, 1.2.840.1 [id number] Methodi 00:00:00 00:00:[address] Andrew 3.430.2.7 Hospit a .3.918971 l .8 2022-06-10 2022-06-10 Telephone Ángel Mir, 1.2.840.1 [id number] Methodi 00:00:00 00:00:[address] Andrew 3.430.2.7 Hospit a .3.470547 l .8 2022-01-16 2022-01-16 Outpatient [facility] [id number] [place] 00:00:00 00:00:00 DIXON [address] 2021-12-19 2021-12-19 Outpatient ABDIRIZAK, [facility] [id number] [place] 00:00:00 00:00:00 DIXON 896 Method i 2021-11-21 2021-11-21 Outpatient ABDIRIZAK, [facility] [id number] [place] 00:00:00 00:00:00 DIXON [address] 2021-11-08 2021-11-08 Outpatient VENEGAS, [facility] [id number] [place] 00:00:00 00:00:00 MOISES [address] 2021-11-06 2021-11-06 Outpatient VENEGAS, [facility] [id number] [place] 00:00:00 00:00:00 MOISES [address] 2021-11-06 2021-11-06 Outpatient VENEGAS, [facility] [id number] [place] 00:00:00 00:00:00 MOISES [address] 2021-10-30 2021-10-30 Outpatient VENEGAS, [facility] [id number] [place] 00:00:00 00:00:00 MOISES [address] 2021-10-19 2021-10-19 Outpatient ABDIRIZAK, [facility] [id number] [place] 00:00:00 00:00:00 DIXON [address] 2021-08-21 2021-08-21 Outpatient THEO, [facility] [id number] [place] 00:00:00 00:00:00 MOISES [address] 2021-08-15 2021-08-15 Outpatient ABDIRIZAK, [facility] [id number] [place] 00:00:00 00:00:00 DIXON [address] 2021-06-27 2021-07-12 Inpatient AFRICA, [facility] 012 [id number] 20 [place] 00:00:00 00:00:00 VALERIA [address] 2021-06-26 2021-06-26 Outpatient THEO, [facility] [id number] [place] 00:00:00 00:00:00 MOISES [address] 2021-06-26 2021-06-26 Outpatient VENEGAS, [facility] [id number] [place] 00:00:00 00:00:00 MOISES [address] 2021-06-26 2021-06-26 Outpatient VENEGAS, [facility] [id number] [place] 00:00:00 00:00:00 MOISES [address] 2021-04-10 2021-04-10 Outpatient VENEGAS, [facility] [id number] [place] 00:00:00 00:00:00 MOISES [address] 2021-04-10 2021-04-10 Outpatient VENEGAS, [facility] [id number] [place] 00:00:00 00:00:00 MOISES [address] 2021-02-27 2021-02-27 Outpatient VENEGAS, [facility] [id number] [place] 00:00:00 00:00:00 MOISES [address] Results Test Description Test Time Test Comments Results Result Comments Source ECG 12 lead 2022-11-27 17:38:46 Test Item Value Reference Range Interpretation Comme nts Ventricular rate (test code = 253) 58 Atrial rate (test code = 255) 58 NH interval (test code = 266) 182 QRSD interval (test code = 260) 88 QT interval (test code = 264) 424 QTC interval (test code = 265) 416 P axis 1 (test code = 267) 37 QRS axis 1 (test code = 268) 89 T wave axis (test code = 270) 75 EKG impression (test code = 273) Sinus bradycardia-Otherwise normal ECG- Corrina VillatoroARS-CoV-2 (COVID-19) RNA [Presence] in Respiratory specimen by MOR with probe [id number] 17:04:22 Test Item Value Reference Range Interpretation Comments SARS-CoV-2 (COVID-19) RNA Not detected [Presence] in Respiratory specimen by MOR with probe detection (test code = 17955-5) Whether patient is employed in a Unknown healthcare setting (test code = 43553-7) Whether the patient has symptoms Unknown related to condition of interest (test code = 51468-3) Whether the patient was Unknown hospitalized for condition of interest (test code = 87143-7) Whether the patient was admitted Unknown to intensive care unit (ICU) for condition of interest (test code = 38715-5) Whether patient resides in a Unknown congregate care setting (test code = 79875-4) status (test code = Unknown 61831-5) Date and time of symptom onset Unknown (test code = 14609-4) NONA SALDANASARS-CoV-2 (COVID-19) RNA [Presence] in Respiratory specimen by MOR with probe [id number] 15:10:32 Test Item Value Reference Range Interpretation Comments SARS-CoV-2 (COVID-19) RNA Not detected Not-Detected [Presence] in Respiratory specimen by MOR with probe detection (test code = 13533-5) Whether patient is employed in a healthcare setting (test code = 66335-6) Whether the patient has symptoms related to condition of interest (test code = 55858-5) Patient was hospitalized because of this condition (test code = 16438-5) Whether the patient was admitted to intensive care unit (ICU) for condition of interest (test code = 62910-9) Whether patient resides in a congregate care setting (test code = 04388-4) NONA SALDANASARS-CoV-2 (COVID-19) RNA [Presence] in Respiratory specimen by MOR with probe [id number] 16:56:51 Test Item Value Reference Range Interpretation Comments SARS-CoV-2 (COVID-19) RNA Not detected Not-Detected [Presence] in Respiratory specimen by MOR with probe detection (test code = 04903-4) Whether patient is employed in a healthcare setting (test code = 53860-6) Whether the patient has symptoms related to condition of interest (test code = 14354-6) Patient was hospitalized because of this condition (test code = 20002-1) Whether the patient was admitted to intensive care unit (ICU) for condition of interest (test code = 58442-0) Whether patient resides in a congregate care setting (test code = 55521-3) NONA POWERRS-CoV-2 (COVID-19) RNA [Presence] in Respiratory specimen by MOR with probe [id number] 01:14:02 Test Item Value Reference Range Interpretation Comments SARS-CoV-2 (COVID-19) RNA Not detected Not-Detected [Presence] in Respiratory specimen by MOR with probe detection (test code = 44574-9) Whether patient is employed in a healthcare setting (test code = 15446-0) Whether the patient has symptoms related to condition of interest (test code = 63231-8) Patient was hospitalized because of this condition (test code = 70415-0) Whether the patient was admitted to intensive care unit (ICU) for condition of interest (test code = 19254-2) Whether patient resides in a congregate care setting (test code = 75281-1) NONA SALDANA
--- NOTE | 2023-04-02 21:19 | RAD REPORT ---
EXAM DESCRIPTION: RAD - Chest Single View - 04/02/2023 8:45 pm CLINICAL HISTORY: COPD COMPARISON: Chest Single View dated 07/18/2021; Abdomen 1 View (KUB) dated 07/18/2021; Chest Pa And Lat (2 Views) dated 07/16/2021; Chest Single View dated 12/27/2018 FINDINGS: Lines: None. Lungs: Chronic elevation of left hemidiaphragm . There is likely underlying atelectasis. Pleural: No significant pleural effusions or pneumothorax. Cardiac: The heart size is within normal limits. Mediastinum: Within normal limits. Bones: No acute fractures. Other: None IMPRESSION: No acute cardiopulmonary disease. Chronic elevation of the left hemidiaphragm.
[2023-04-02 21:38] LABS: Absolute Lymphocytes (CBC) 1.6 K/uL (0.7-4.9); Hematocrit 40.2 % (39.6-49.0); Lymphocytes % 13.5 % (15.3-44.8); MCV 86.9 fL (80-100); MPV 9.7 fL (7.6-11.3); Platelets 141 thou/uL (152-406); RBC Red Blood Cell Count 4.63 M/uL (4.33-5.43)
[2023-04-02 21:59] LABS: Albumin 3.7 g/dL (3.4-5.0); Bilirubin Direct 0.2 mg/dL (0-0.2); Bilirubin Indirect, Calculated 0.8 mg/dL (0.2-0.8); Magnesium 2.3 mg/dL (1.6-2.4); Potassium 3.7 mEq/L (3.5-5.1); Protein, Total 7.8 g/dL (6.4-8.2); Troponin High Sensitivity 13.7 pg/mL (<58.9)
[2023-04-02 22:23] LABS: Protime INR 0.98
[2023-04-03] MEDS ORDERED: NA CHLORIDE 0.9% 1,000 ML ONE (00:15)
[2023-04-03] MEDS ORDERED: FOLIC ACID 5 MG/ML VIAL ONE (00:15)
[2023-04-03] MEDS ORDERED: NA CHLORIDE 0.9% 500 ML ONE (00:15)
[2023-04-03 01:43] LABS: Specific Gravity 1.023 (1.005-1.030); Urine Bacteria None Seen /HPF (<20); Urine Bilirubin NEGATIVE (Negative); Urine Blood Trace (Negative); Urine Clarity Clear (Clear); Urine Color Yellow (Yellow); Urine Glucose 3+ (Negative); Urine Protein 3+ (Negative); Urine RBC <5 /HPF (None Seen); Urine Urobilinogen Normal (Normal)
--- NOTE | 2023-04-03 02:18 | EDPHYS ---
Physician Documentation [facility] Name: Km Lizarraga Age: 72 yrs Sex: Male : 1950 Arrival Date: 04/02/2023 Time: 19:52 Bed 11 Private MD: ED Physician Brad Tracey HPI: 04/03 02:03 This 72 yrs old Male presents to ER via Ambulatory with complaints of chuck FATIGUE, NAUSEA. 02:03 The patient's problem is reported as altered mental status, paresthesias, in right chuck lower extremity, in left lower extremity. Onset: The symptoms/episode began/occurred yesterday, at 08:00. Duration: The episodes are intermittent. Context: the episode(s) was witnessed, by a significant other, . The symptoms are alleviated by nothing. The symptoms are aggravated by nothing. on Friday left leg got numb, resolved in am , awoke on the , couldn't make coffee yesterday morning, tired all day , slept, had some nausea vomiting. The patient presents with confusion, trouble concentrating. Possible causes: CVA or TIA, seizure, unknown. Associated signs and symptoms: Pertinent positives: confusion, numbness, vomiting. Severity of symptoms: At their worst the symptoms were mild moderate in the emergency department the symptoms have improved moderately. Patient's baseline: Neuro: alert and fully oriented, Motor: no deficits, Ambulation: walks without assistance, Speech: normal, The patient has a previous history of. Historical: - Allergies: 04/02 20:05 No Known Allergies; cm10 - PMHx: 20:05 Hyperlipidemia; Hypertension; stents in leg; aortic aneurysm; cm10 - Immunization history:: Adult Immunizations. - Social history:: Smoking status: Patient reports the use of cigarette tobacco products, smokes two packs cigarettes per day. - Family history:: not pertinent. ROS: 04/03 02:03 Constitutional: Negative for fever, chills, and weight loss, Eyes: Negative for injury, chuck pain, redness, and discharge, ENT: Negative for injury, pain, and discharge, Neck: Negative for injury, pain, and swelling, Cardiovascular: Negative for chest pain, palpitations, and edema, Respiratory: Negative for shortness of breath, cough, wheezing, and pleuritic chest pain, Back: Negative for injury and pain, : Negative for injury, bleeding, discharge, and swelling, MS/Extremity: Negative for injury and deformity, Skin: Negative for injury, rash, and discoloration, Psych: Negative for depression, anxiety, suicide ideation, homicidal ideation, and hallucinations, Allergy/Immunology: Negative for hives, rash, and allergies, Endocrine: Negative for neck swelling, polydipsia, polyuria, polyphagia, and marked weight changes. Abdomen/GI: Positive for nausea, vomiting. Neuro: Positive for tingling, of the lateral aspect of left calf, left calf, medial aspect of left calf and left bonilla. Exam: 02:03 Radiologist reports: neg chuck 02:03 Constitutional: This is a well developed, well nourished patient who is awake, alert, and in no acute distress. Head/Face: Normocephalic, atraumatic. Eyes: Pupils equal round and reactive to light, extra-ocular motions intact. Lids and lashes normal. Conjunctiva and sclera are non-icteric and not injected. Cornea within normal limits. Periorbital areas with no swelling, redness, or edema. ENT: Nares patent. No nasal discharge, no septal abnormalities noted. Tympanic membranes are normal and external auditory canals are clear. Oropharynx with no redness, swelling, or masses, exudates, or evidence of obstruction, uvula midline. Mucous membranes moist. Neck: Trachea midline, no thyromegaly or masses palpated, and no cervical lymphadenopathy. Supple, full range of motion without nuchal rigidity, or vertebral point tenderness. No Meningismus. Chest/axilla: Normal chest wall appearance and motion. Nontender with no deformity. No lesions are appreciated. Cardiovascular: Regular rate and rhythm with a normal S1 and S2. No gallops, murmurs, or rubs. Normal PMI, no JVD. No pulse deficits. Respiratory: Lungs have equal breath sounds bilaterally, clear to auscultation and percussion. No rales, rhonchi or wheezes noted. No increased work of breathing, no retractions or nasal flaring. Abdomen/GI: Soft, non-tender, with normal bowel sounds. No distension or tympany. No guarding or rebound. No evidence of tenderness throughout. Back: No spinal tenderness. No costovertebral tenderness. Full range of motion. Male : Normal genitalia with no discharge or lesions. Skin: Warm, dry with normal turgor. Normal color with no rashes, no lesions, and no evidence of cellulitis. MS/ Extremity: Pulses equal, no cyanosis. Neurovascular intact. Full, normal range of motion. Neuro: Awake and alert, GCS 15, oriented to person, place, time, and situation. Cranial nerves II-XII grossly intact. Motor strength 5/5 in all extremities. Sensory grossly intact. Cerebellar exam normal. Normal gait. Psych: Awake, alert, with orientation to person, place and time. Behavior, mood, and affect are within normal limits. 02:15 ECG was reviewed by the Attending Physician. chuck Vital Signs: 04/02 20:00 BP 172 / 92; Pulse 66; Resp 18 S; Temp 98.7(O); Pulse Ox 95% on R/A; Weight 73.48 kg; cm10 Height 5 ft. 10 in. ; Pain 0/10; 21:00 BP 180 / 64; Pulse 63; Resp 20; Pulse Ox 95% on R/A; rv1 22:00 BP 179 / 56; Pulse 63; Resp 21; Pulse Ox 95% on R/A; rv1 23:00 BP 170 / 57; Pulse 66; Resp 21; Pulse Ox 96% on R/A; rv1 08/10 00:00 BP 155 / 57; Pulse 60; Resp 19; Pulse Ox 96% on R/A; rv1 01:00 BP 186 / 65; Pulse 59; Resp 18; Pulse Ox 97% on R/A; rv1 02:00 BP 199 / 62; Pulse 67; Resp 21; Pulse Ox 94% on R/A; rv1 03:00 BP 180 / 64; Pulse 59; Resp 18; Pulse Ox 95% on R/A; rv1 04:00 BP 175 / 57; Pulse 58; Resp 18; Pulse Ox 95% on R/A; rv1 05:00 BP 150 / 54; Pulse 55; Resp 19; Pulse Ox 95% on R/A; rv1 06:00 BP 145 / 62; Pulse 57; Resp 18; Pulse Ox 96% on R/A; Pain 0/10; pf1 04/02 20:00 Body Mass Index 23.24 (73.48 kg, 177.8 cm) cm10 04/02 20:00 Pain Scale: Adult cm10 06:00 Pain Scale: Adult pf1 MDM: 04/02 20:14 Patient medically screened. [facility] 04/03 02:10 Differential diagnosis: CVA, TIA, Dementia, metabolic disorder. Differential Diagnosis chuck altered mental status, sepsis, flu. Differential Diagnosis: CVA, electrolyte abnormality, hypoglycemia, intracranial bleed, seizure, TIA, UTI, volume depletion. Data reviewed: vital signs, nurses notes, EMS record, lab test result(s), EKG, radiologic studies, CT scan, plain films. Consideration of Admission/Observation Patient was admitted/placed on observation. Escalation of care including admission/observation considered. I considered the following discharge prescriptions or medication management in the emergency department Medications were administered in the Emergency Department. See MAR. Test considered but Not performed: MRI: no mri in ed. Care significantly affected by the following chronic conditions: Hypertension, aaa, hyperlipids, stents. Counseling: I had a detailed discussion with the patient and/or guardian regarding: the historical points, exam findings, and any diagnostic results supporting the discharge/admit diagnosis, the presence of at least one elevated blood pressure reading (>120/80) during this emergency department visit, lab results, radiology results, the need for further work-up and treatment in the hospital. 04/02 20:15 Order name: Basic Metabolic Panel; Complete Time: [facility] 04/02 20:15 Order name: CBC with Diff; Complete Time: [facility] 04/02 20:15 Order name: LFT's; Complete Time: [facility] 04/02 20:15 Order name: Magnesium; Complete Time: [facility] 04/02 20:15 Order name: NT PRO-BNP; Complete Time: [facility] 04/02 20:15 Order name: PT-INR; Complete Time: [facility] 04/02 20:15 Order name: Troponin HS; Complete Time: [facility] 04/02 20:15 Order name: Lipase; Complete Time: [facility] 04/02 20:15 Order name: Urinalysis w/ reflexes; Complete Time: 02: [facility] 04/02 20:15 Order name: XRAY Chest (1 view); Complete Time: [facility] 04/03 01:30 Order name: US Carotid Artery Bilateral [facility] 04/03 02:16 Order name: CT Chest Abdomen Pelvis W/O Contrast [facility] 04/02 20:15 Order name: EKG; Complete Time: 20:16 [facility] 04/03 02:28 Order name: CONS Physician Consult ED[facility] 04/02 20:15 Order name: Cardiac monitoring; Complete Time: 00:00 [facility] 04/02 20:15 Order name: EKG - Nurse/Tech; Complete Time: 21:37 [facility] 04/02 20:15 Order name: IV Saline Lock; Complete Time: 21:26 [facility] 04/02 20:15 Order name: Labs collected and sent; Complete Time: : [facility] 04/02 20:15 Order name: O2 Per Protocol; Complete Time: 00:00 [facility] 04/02 20:15 Order name: O2 Sat Monitoring; Complete Time: 00:00 [facility] 04/03 03:41 Order name: Seizure Precautions; Complete Time: 03:54 [facility] EC:15 Rate is 58 beats/min. Rhythm is regular. QRS [place] is Normal. [place] interval is normal. QRS chuck interval is normal. QT interval is normal. No Q waves. T waves are Normal. No ST changes noted. Clinical impression: NSR w/ Non-specific ST/T Changes and No evidence of ischemia. Interpreted by me. Reviewed by me. Administered Medications: 00:10 Drug: NS 0.9% IV 500 ml Route: IV; Rate: bolus; Site: right antecubital; pf1 01:00 Follow up: Response: No adverse reaction; Marked relief of symptoms; IV Status: pf1 Completed infusion; IV Intake: 500ml 00:10 Drug: NS 0.9% IV 1000 ml Route: IV; Rate: 125 ml/hr; Site: right antecubital; pf1 01:00 Follow up: Response: No adverse reaction; Marked relief of symptoms pf1 06:35 Follow up: Response: No adverse reaction; Marked relief of symptoms; IV Status: pf1 Infusion continued upon transfer 00:10 Drug: foLIC Acid IVPB 1 mg Route: IVPB; Site: right antecubital; pf1 00:12 Follow up: IV Status: Completed infusion pf1 01:00 Follow up: Response: No adverse reaction; Marked relief of symptoms pf1 01:00 Follow up: Response: No adverse reaction; Marked relief of symptoms pf1 05:51 Follow up: Response: No adverse reaction; Marked relief of symptoms pf1 03:00 Drug: Metoprolol PO 50 mg Route: PO; pf1 03:20 Follow up: Response: No adverse reaction pf1 03:45 Drug: Decadron - Dexamethasone IVP 10 mg Route: IVP; Site: right antecubital; pf1 04:45 Follow up: Response: No adverse reaction; Marked relief of symptoms pf1 03:45 Drug: Keppra IV 1000 mg Route: IV; Rate: per protocol; Site: right antecubital; pf1 04:00 Follow up: Response: No adverse reaction; Marked relief of symptoms; IV Status: pf1 Completed infusion; IV Intake: 100ml Disposition Summary: 04/03/23 03:48 Transfer Ordered Transfer Location: [facility] chuck Reason: Higher level of care chuck Condition: Fair(04/03/23 03:48) chuck Problem: new(04/03/23 03:48) chuck Symptoms: have improved(04/03/23 03:48) chuck Accepting Physician: [place] [facility]04/03[place] 06:34[place] pf1 Diagnosis - Tobacco abuse counseling(04/03/23 03:48) chuck - Tobacco use(04/03/23 03:48) chuck - Weakness chuck - Cerebral edema chuck - Altered mental status, unspecified(04/03/23 03:48) chuck - Dizziness and giddiness(04/03/23 03:48) chuck - Acute kidney failure, unspecified(04/03/23 04:11) chuck Forms: - Medication Reconciliation Form chuck - SBAR form chuck Signatures: Dispatcher [employer] EDMS Brad Tracey MD MD cha Finley, Pamala RN RN pf1 Vidya Dubois RN RN cm10 Corrections: (The following items were deleted from the chart) 02:26 01:43 Stone Protocol+CT.RAD.BRZ ordered. EDMS EDMS 02:26 02:17 Head Brain Wo Cont+CT.RAD.BRZ ordered. EDMS EDMS 03:43 02:18 Observation chuck chuck 03:43 02:18 Samuels, A chuck chuck 03:43 02:18 Telemetry/MedSurg (observation) chuck chuck 03:43 02:18 Stable chuck chuck 03:43 02:18 new chuck chuck 03:43 02:18 have improved chuck chuck 03:43 02:18 Standard chuck chuck 03:43 02:18 chuck chuck 03:43 02:18 Dizziness and giddiness chuck chuck 02:18 Altered mental status, unspecified chuck chuck 02:18 Tobacco abuse counseling chuck chuck 02:18 Tobacco use chuck chuck 02:18 Essential (primary) hypertension chuck chuck 02:18 Transient cerebral ischemic attack, unspecified chuck chuck 02:18 Acute kidney failure, unspecified chuck chuck 04:11 03:48 to [facility] chuck chuck 06:34 04:11 to [facility] chuck pf1
--- NOTE | 2023-04-03 02:18 | ER ---
Nurse's Notes [facility] Name: Km Lizarraga Age: 72 yrs Sex: Male : 1950 Arrival Date: 04/02/2023 Time: 19:52 Bed 11 Private MD: Diagnosis: Tobacco abuse counseling;Tobacco use;Weakness;Cerebral edema;Altered mental status, unspecified;Dizziness and giddiness;Acute kidney failure, unspecified Presentation: 04/02 20:00 Chief complaint: Patient states: confusion onset this morning. Pt states that he went cm10 to work this morning and fell asleep and that is not normal for him. Last night pt had numbness to left leg at 2000 and when he woke up at 0500 the numbness had resolved. LKN: 1999. Spouse and/or significant other states: Pt was having difficulty with hand-eye coordination and just doing things that were not normal for him. Pt's states that pt was dropping things. Coronavirus screen: Vaccine status: Patient reports receiving the 2nd dose of the covid vaccine. Client denies travel out of the [place] in the last 14 days. Ebola Screen: Patient denies travel to an Ebola-affected area in the 21 days before illness onset. No symptoms or risks identified at this time. Initial Sepsis Screen: Does the patient meet any 2 criteria? No. Patient's initial sepsis screen is negative. Does the patient have a suspected source of infection? No. Patient's initial sepsis screen is negative. Risk Assessment: Do you want to hurt yourself or someone else? Patient reports no desire to harm self or others. Onset of symptoms was April 02, 2023. 20:00 Method Of Arrival: Ambulatory cm10 20:00 Acuity: RAMSES 3 cm10 Triage Assessment: 04/03 00:00 General: see other assessment. pf1 Historical: - Allergies: 04/02 20:05 No Known Allergies; cm10 - PMHx: 20:05 Hyperlipidemia; Hypertension; stents in leg; aortic aneurysm; cm10 - Immunization history:: Adult Immunizations. - Social history:: Smoking status: Patient reports the use of cigarette tobacco products, smokes two packs cigarettes per day. - Family history:: not pertinent. Screenin/10 00:00 [facility] ED Fall Risk Assessment (Adult) History of falling in the last 3 months, pf1 including since admission No falls in past 3 months (0 pts) Confusion or Disorientation No (0 pts) Intoxicated or Sedated No (0 pts) Impaired Gait No (0 pts) Mobility Assist Device Used No (0 pt) Altered Elimination No (0 pt) Score/Fall Risk Level 0 - 2 = Low Risk Oriented to surroundings, Maintained a safe environment, Educated pt \T\ family on fall prevention, incl call for assistance when getting out of bed, Assessed \T\ reinforced patient's understanding of fall precautions, Provided non-skid footwear, Hourly rounding (assess needs \T\ fall precautionary measures) done, Used ambulatory aids as needed (educated on \T\ assisted with), Used gait belt as appropriate. 00:00 Abuse screen: Denies threats or abuse. Nutritional screening: No deficits noted. pf1 Tuberculosis screening: No symptoms or risk factors identified. Assessment: 04/02 23:55 General: Appears in no apparent distress. comfortable, well groomed, well developed, pf1 Behavior is calm, cooperative, appropriate for age, quiet. 23:55 Pain: Denies pain. Neuro: Level of Consciousness is awake, alert, obeys commands, pf1 Oriented to person, place, time, situation, Reports fatigue with confusion. Cardiovascular: No deficits noted. Capillary refill < 3 seconds Patient's skin is warm and dry. Respiratory: No deficits noted. Airway is patent Respiratory effort is even, unlabored, Respiratory pattern is regular, symmetrical, Breath sounds are clear bilaterally. GI: No deficits noted. No signs and/or symptoms were reported involving the gastrointestinal system. : No deficits noted. No signs and/or symptoms were reported regarding the genitourinary system. EENT: No deficits noted. No signs and/or symptoms were reported regarding the EENT system. Derm: Bruising that is dark purple, on right arm and left arm. 04/03 01:00 Reassessment: Patient appears in no apparent distress at this time. Patient and/or pf1 family updated on plan of care and expected duration. Pain level reassessed. Patient is alert, oriented x 3, equal unlabored respirations, skin warm/dry/pink. Patient states feeling better. Patient states symptoms have improved. 02:00 Reassessment: Patient appears in no apparent distress at this time. Patient and/or pf1 family updated on plan of care and expected duration. Pain level reassessed. Patient is alert, oriented x 3, equal unlabored respirations, skin warm/dry/pink. Patient states feeling better. Patient states symptoms have improved. 03:00 Reassessment: Patient appears in no apparent distress at this time. Patient and/or pf1 family updated on plan of care and expected duration. Pain level reassessed. Patient is alert, oriented x 3, equal unlabored respirations, skin warm/dry/pink. Patient states feeling better. Patient states symptoms have improved. 04:00 Reassessment: Patient appears in no apparent distress at this time. Patient and/or pf1 family updated on plan of care and expected duration. Pain level reassessed. Patient is alert, oriented x 3, equal unlabored respirations, skin warm/dry/pink. Patient states feeling better. Patient states symptoms have improved. 05:00 Reassessment: Patient appears in no apparent distress at this time. Patient and/or pf1 family updated on plan of care and expected duration. Pain level reassessed. Patient is alert, oriented x 3, equal unlabored respirations, skin warm/dry/pink. Patient states feeling better. Patient states symptoms have improved. Vital Signs: 04/02 20:00 BP 172 / 92; Pulse 66; Resp 18 S; Temp 98.7(O); Pulse Ox 95% on R/A; Weight 73.48 kg; cm10 Height 5 ft. 10 in. ; Pain 0/10; 21:00 BP 180 / 64; Pulse 63; Resp 20; Pulse Ox 95% on R/A; rv1 22:00 BP 179 / 56; Pulse 63; Resp 21; Pulse Ox 95% on R/A; rv1 23:00 BP 170 / 57; Pulse 66; Resp 21; Pulse Ox 96% on R/A; rv1 0810 00:00 BP 155 / 57; Pulse 60; Resp 19; Pulse Ox 96% on R/A; rv1 01:00 BP 186 / 65; Pulse 59; Resp 18; Pulse Ox 97% on R/A; rv1 02:00 BP 199 / 62; Pulse 67; Resp 21; Pulse Ox 94% on R/A; rv1 03:00 BP 180 / 64; Pulse 59; Resp 18; Pulse Ox 95% on R/A; rv1 04:00 BP 175 / 57; Pulse 58; Resp 18; Pulse Ox 95% on R/A; rv1 05:00 BP 150 / 54; Pulse 55; Resp 19; Pulse Ox 95% on R/A; rv1 06:00 BP 145 / 62; Pulse 57; Resp 18; Pulse Ox 96% on R/A; Pain 0/10; pf1 04/02 20:00 Body Mass Index 23.24 (73.48 kg, 177.8 cm) cm10 04/02 20:00 Pain Scale: Adult cm10 06:00 Pain Scale: Adult pf1 ED Course: 04/02 00:00 Patient has correct armband on for positive identification. Bed in low position. Call pf1 light in reach. Side rails up X2. 19:54 Patient arrived in ED. ag3 20:05 Triage completed. cm10 20:06 Arm band placed on Patient placed in an exam room, on a stretcher. cm10 20:14 Brad Tracey MD is Attending Physician. chuck 20:47 XRAY Chest (1 view) In Process Unspecified. EDMS 21:25 Basic Metabolic Panel Sent. cm10 21:25 CBC with Diff Sent. cm10 21:25 LFT's Sent. cm10 21:25 Magnesium Sent. cm10 21:25 NT PRO-BNP Sent. cm10 21:26 PT-INR Sent. cm10 21:26 Troponin HS Sent. cm10 21:26 Initial lab(s) drawn, by me, sent to lab. Inserted saline lock: 20 gauge in right cm10 antecubital area, using aseptic technique. Blood collected. 04/03 02:09 US Carotid Artery Bilateral In Process Unspecified. EDMS 02:17 Booker Samuels MD is Hospitalizing Provider. chuck 03:21 No provider procedures requiring assistance completed. pf1 03:42 Initiated transfer with Jordi at [facility]. rv1 03:58 Initiated transfer to [facility] but were declined due to capacity. rv1 04:52 Pt accepted to [facility] by Dr. Jung to [address] [place] [address] Bed 2. rv1 06:00 Provided Education on: patient and educated on patient need to be transferred.. pf1 06:34 Patient transferred, IV remains in place. pf1 Administered Medications: 00:10 Drug: NS 0.9% IV 500 ml Route: IV; Rate: bolus; Site: right antecubital; pf1 01:00 Follow up: Response: No adverse reaction; Marked relief of symptoms; IV Status: pf1 Completed infusion; IV Intake: 500ml 00:10 Drug: NS 0.9% IV 1000 ml Route: IV; Rate: 125 ml/hr; Site: right antecubital; pf1 01:00 Follow up: Response: No adverse reaction; Marked relief of symptoms pf1 06:35 Follow up: Response: No adverse reaction; Marked relief of symptoms; IV Status: pf1 Infusion continued upon transfer 00:10 Drug: foLIC Acid IVPB 1 mg Route: IVPB; Site: right antecubital; pf1 00:12 Follow up: IV Status: Completed infusion pf1 01:00 Follow up: Response: No adverse reaction; Marked relief of symptoms pf1 01:00 Follow up: Response: No adverse reaction; Marked relief of symptoms pf1 05:51 Follow up: Response: No adverse reaction; Marked relief of symptoms pf1 03:00 Drug: Metoprolol PO 50 mg Route: PO; pf1 03:20 Follow up: Response: No adverse reaction pf1 03:45 Drug: Decadron - Dexamethasone IVP 10 mg Route: IVP; Site: right antecubital; pf1 04:45 Follow up: Response: No adverse reaction; Marked relief of symptoms pf1 03:45 Drug: Keppra IV 1000 mg Route: IV; Rate: per protocol; Site: right antecubital; pf1 04:00 Follow up: Response: No adverse reaction; Marked relief of symptoms; IV Status: pf1 Completed infusion; IV Intake: 100ml Medication: 06:33 VIS not applicable for this client. pf1 Intake: 01:00 IV: 500ml; Total: 500ml. pf1 04:00 IV: 100ml; Total: 600ml. pf1 Outcome: 02:18 Decision to Hospitalize by Provider. chuck 03:48 ER care complete, transfer ordered by . chuck 06:33 Transferred by ground EMS to [facility], Note: [facility] pf1 06:33 Condition: stable 06:33 Instructed on the need for transfer, Demonstrated understanding of instructions. 06:34 Patient left the ED. pf1 Signatures: Dispatcher [employer] Brad Chahal MD MD cha Gomez, Alice ag3 Finley, Pamala, ABIMAEL RN pf1 Emely Richardson rv1 Vidya Dubois RN RN cm10 Corrections: (The following items were deleted from the chart) 05:08 01:00 BP 175 / 57; Pulse 65bpm; Resp 22bpm; Pulse Ox 96% RA; rv1 rv1 05:08 02:00 BP 182 / 61; Pulse 57bpm; Resp 21bpm; Pulse Ox 95% RA; rv1 rv1 05:08 03:00 BP 186 / 65; Pulse 62bpm; Resp 19bpm; Pulse Ox 97% RA; rv1 rv1
[2023-04-03] MEDS ORDERED: METOPROLOL XL 50 MG TAB PO ONE (03:03)
[2023-04-03] MEDS ORDERED: METOPROLOL TAR 50 MG TAB ONE (03:04)
[2023-04-03] MEDS ORDERED: NA CHLORIDE 0.9% 100 ML ONE (04:36)
[2023-04-03] MEDS ORDERED: dexAMETHasone 10 MG/ML VIAL ONE (04:36)
[2023-04-03] MEDS ORDERED: LEVETIRACETAM 500 MG/5 ML VIAL IV ONE (04:36)
[2023-04-03 07:22] VITALS: TEMP 98.7
[2023-04-03 07:39] VITALS: O2SAT 95
[2023-04-03 07:41] VITALS: BP 150/54
--- NOTE | 2023-04-03 14:12 | EKG ---
Test Date: 2023-04-02 Test Time: 21:35:55 Hand Rounder: ABAD MEASUREMENT RESULTS: Intervals: Rate: 58 SD: 174 QRSD: 88 QT: 446 QTc: 437 [place]: P: 10 SD: 174 QRS: 85 T: 89 INTERPRETIVE STATEMENTS: Sinus bradycardia Otherwise normal ECG Compared to ECG 04/02/2023 21:34:10 Myocardial infarct finding no longer present Electronically Signed On 04-03-23 14:10:28 CDT by Jalen Hinojosa
--- NOTE | 2023-04-03 14:12 | EKG ---
Test Date: 2023-04-02 Test Time: 21:34:10 Community Cultural Development Officer: ABAD MEASUREMENT RESULTS: Intervals: Rate: 58 [place]: 174 QRSD: 88 QT: 454 QTc: 445 [place]: P: [place]: 174 QRS: 93 T: 75 INTERPRETIVE STATEMENTS: Sinus bradycardia Lateral infarct, age undetermined Abnormal ECG Compared to ECG 12/27/2018 17:15:59 Myocardial infarct finding now present Sinus rhythm no longer present Electronically Signed On 04-03-23 14:10:30 CDT by Jalen Hinojosa
--- NOTE | 2023-04-03 18:00 | RAD REPORT ---
EXAM DESCRIPTION: Carotid Artery Bilateral CLINICAL HISTORY: 72 years, Male, TIA COMPARISON: None. FINDINGS: Sonographic grayscale, color and Doppler interrogation of the carotid and vertebral arteri es was performed on 04/03/2023 at 1: 46 AM. There is calcified atherosclerotic plaque in the carotid artery bifurcations and carotid bulbs bilate rally, greater on the left Systolic and diastolic arterial velocities are as follows: RIGHT: CCA mid, 62 cm/sec, 10 cm/sec Carotid bulb, 56 cm/sec, 6 cm/sec ICA proximal, 67 cm/sec, 14 cm/sec ICA mid, 95 cm/sec, 16 cm/sec ICA distal, 91 cm/sec, 18 cm/sec ECA, 147 cm/sec Vertebral, 54 cm/sec antegrade ICA/ CCA = 1.55 LEFT: CCA mid, 63 cm/sec, 9 cm/sec Carotid bulb, 64 cm/sec, 9 cm/sec ICA proximal, 97 cm/sec, 15 cm/sec ICA mid, 86 cm/sec, 20 cm/sec ICA distal, 105 cm/sec, 17 cm/sec ECA, 117 cm/sec Vertebral, 50 cm/sec antegrade ICA/ CCA = 1.67 IMPRESSION: 1. No evidence of a hemodynamically significant stenosis involving the internal caroti d arteries bilaterally. 2. Calcified atherosclerotic plaque in the carotid artery bifurcations and carotid bulbs bilaterall y greater on the left. 3. Vertebral flow is antegrade bilaterally. Electronically signed by: Beronica Winchester DO 04/03/2023 2:49 AM CDT Due to temporary technical issues with the PACS/Fluency reporting system, reports are being signed by the in house radiologists without review as a courtesy to insure prompt reporting. The interpreting radiologist is fully responsible for the content of the report.
--- NOTE | 2023-04-03 18:06 | RAD REPORT ---
EXAM DESCRIPTION: 1. CT scan of the CHEST without intravenous contrast. 2. CT scan of the ABDOMEN AND PELVIS without intravenous contrast CLINICAL HISTORY: 72 years Male Dyspnea;Pain. TECHNIQUE: CT imaging of the chest, abdomen and pelvis without intravenous contrast administration. Sagittal and coronal reconstructed images were performed. The CT study is performed according to ALAR A (as low as reasonably achievable) or ALARA/IMAGE GENTLY, with automatic adjustment of mA and/or kV according to patient size. Performed on: 04/03/2023 and 2:29 AM COMPARISON: No prior studies were available for comparison. FINDINGS: CHEST: Lungs: The lungs are well-expanded. There is mild centrilobular emphysema. There is mild subpleural i nterstitial thickening in the inferior hemithoraces, particularly the dependent lung bases which may be due to fibrosis and/or atelectasis. There are a couple of scattered calcified granulomata. There i s a benign intrapulmonary lymph node in the posterior left lower lobe measuring approximately 6 mm. T here are no pleural effusions. There is no pneumothorax. The central airways are patent. Heart: The heart is normal in size. There is no pericardial effusion. There are moderate coronary artery calcifications. Mediastinum: The mediastinum is unremarkable. The mediastinal vessels are normal in caliber and con tour. The ascending thoracic aorta measures approximately 3.1 x 3.3 cm in cross-sectional diameter. T he descending thoracic aorta is normal in caliber. There are atherosclerotic calcifications along the thoracic aorta. Bones: No acute osseous abnormalities are identified. There are mild degenerative changes along the t horacic spine. Soft tissues: No focal soft tissue abnormalities are identified. The thyroid gland is normal in size and configuration. Lymphadenopathy: No pathologic hilar, mediastinal or axillary lymphadenopathy is identified. Couple of calcified mediastinal lymph nodes are present consistent with prior granulomatous disease. ABDOMEN/PELVIS: Liver: The liver is normal in size and configuration. No focal hepatic abnormalities are identified. Liver attenuation is within normal limits. There is a punctate calcified hepatic granuloma. Spleen: The spleen is normal in size, configuration and attenuation. There are a couple of calcified splenic granulomas. Gallbladder and bile duct: The gallbladder is surgically absent. There is no biliary ductal dilatat ion. Pancreas: The pancreas is grossly normal in size and configuration. Adrenal Glands: The adrenal glands are normal in size and configuration. Kidneys: The right kidney is atrophic. The left kidney is grossly normal in size. There is no evidenc e of hydronephrosis. There is no evidence of nephrolithiasis. There are calcifications associated wit h the kidneys bilaterally which are likely vascular in nature. A punctate nonobstructing left renal c alculus is not excluded. There is a benign-appearing exophytic cyst arising from the lateral cortex o f the midpole of the left kidney measuring approximately 4.7 x 3.9 cm in cross-sectional diameter and a smaller 1.4 cm left renal cortical cyst. No follow-up imaging is recommended. Stomach: The stomach is grossly normal. There is no definite hiatal hernia. Bowel: The bowel gas pattern is non specific and non obstructive. There is occasional colonic diverti culosis. There is moderate fecal residue scattered throughout the colon. Appendix: The appendix is normal. Free air: There is no evidence of free air. Free fluid: There is no evidence of free fluid. Vasculature: There appears to be a saccular aneurysm arising from the right lateral aspect of the sup rarenal abdominal aorta. This measures approximately 3.6 x 3.8 cm in cross-sectional diameter by appr oximately 3.9 cm in craniocaudal dimension. Evaluation is limited without intravenous contrast. There are surgical clips along the abdominal aorta. Additionally, there is an infrarenal abdominal aortic aneurysm measuring approximately 3.4 centimeters in diameter cm. The inferior vena cava is grossly un remarkable. There is a left common iliac artery and external iliac artery stent. There are atheroscle rotic calcifications along the iliofemoral arteries. Lymphadenopathy: No pathologic lymphadenopathy is identified. Bladder: The bladder is well distended and smooth in contour. Reproductive: The prostate gland is grossly within normal limits. Bones: No acute osseous abnormalities are identified. Soft tissues: No focal soft tissue abnormalities are identified. IMPRESSION: CT CHEST: 1. Mild centrilobular emphysema. 2. Mild subpleural interstitial thickening in the inferior hemithoraces, particularly the dependent lung bases which may be due to fibrosis and/or atelectasis. 3. Evidence of prior granulomatous disease. 4. Moderate coronary artery calcifications. CT SCAN ABDOMEN AND PELVIS: 1. No evidence of acute intra-abdominal or intrapelvic pathology. 2. Remote cholecystectomy. 3. Atrophic right kidney. 4. Occasional colonic diverticulosis. 5. Suspect saccular aneurysm arising from the right lateral aspect of the suprarenal abdominal aort a. This measures approximately 3.6 x 3.8 x 3.9 cm in cross-sectional diameter. Evaluation is limited without intravenous contrast. Recommend vascular consultation. 6. Infrarenal abdominal aortic aneurysm measuring approximately 3.4 cm in diameter. Recommend follo w-up every 3 years. Reference: J Am Cheyanne Radiol 2013;10:789-794. 7. Left common iliac artery and external iliac artery stent. Electronically signed by: Beronica Winchester DO 04/03/2023 4:02 AM CDT Due to temporary technical issues with the PACS/Fluency reporting system, reports are being signed by the in house radiologists without review as a courtesy to insure prompt reporting. The interpreting radiologist is fully responsible for the content of the report.
--- NOTE | 2023-04-03 19:29 | RAD REPORT ---
EXAM DESCRIPTION: ADDENDUM #1 THIS REPORT CONTAINS FINDINGS THAT MAY BE CRITICAL TO PATIENT CARE: The findings were verbally discus sed via telephone conference with Dr. Brad Tracey on 04/03/2023 3:36 AM CDT. The results were ackno wledged and understood. Electronically signed by: Stormy Sandoval MD 04/03/2023 3:38 AM CDT End of Addendum EXAM DESCRIPTION: CT Head Without Intravenous Contrast CLINICAL HISTORY: TIA TECHNIQUE: Axial computed tomography images of the head/brain without intravenous contrast. Sagitt al and coronal reformatted images were created and reviewed. This CT exam was performed using one o r more of the following dose reduction techniques: automated exposure control, adjustment of the mA and/or kV according to patient size, and/or use of iterative reconstruction technique. COMPARISON: No relevant prior studies available. FINDINGS: Brain: Right thalamic and left caudate CSF density foci most compatible with remote lacu cassie infarcts. Minimal bilateral periventricular and subcortical white matter low-attenuation most c ompatible with chronic microvascular angiopathy. Nevarez-white matter differentiation is within normal limits. There is a densely calcified lesion within the left anterior temporal lobe measuring 1.8 x 1.3 x 1.2 cm. Mild adjacent white matter edema. No hemorrhage. Ventricles: Unremarkable. No ventriculomegaly. Bones/joints: Remote bilateral nasal bone fracture deformities. No acute fracture. Soft tissues: Unremarkable. Vasculature: There is atherosclerotic disease of the internal carotid and vertebral arteries bilate rally. Sinuses: Unremarkable as visualized. No acute sinusitis. Mastoid air cells: Unremarkable as visualized. No mastoid effusion. IMPRESSION: 1. No acute hemorrhage or large territory infarct. 2. Densely calcified left anterior temporal lobe lesion with adjacent white matter edema. Differe ntial considerations include calcified neoplasm, vascular lesion or sequela of prior insult (infectio n or hemorrhage). MRI with and without contrast is recommended for further characterization. 3. Other findings as above. Electronically signed by: Stormy Sandoval MD 04/03/2023 3:28 AM CDT Due to temporary technical issues with the PACS/Fluency reporting system, reports are being signed by the in house radiologists without review as a courtesy to insure prompt reporting. The interpreting radiologist is fully responsible for the content of the report.
== END 2023-04-03 06:34 | disposition short-term general hospital (02) ==
LOC: ER 19:52 → UNDOADMIN 04-03 02:37 → ERHOLD 04-03 02:37
DX: R41.82 Altered mental status, unspecified (principal); R53.1 Weakness; G93.6 Cerebral edema; N17.9 Acute kidney failure, unspecified; R42 Dizziness and giddiness; Z72.0 Tobacco use; Z71.6 Tobacco abuse counseling; I10 Essential (primary) hypertension
CPT/HCPCS: 96361; 93005 ×2; 85025; 81001; 80048; 36415; 83735; 85610; 80076; 84484; 83690; 83880; 70450; 71250; 74176; 71045; 93880; 96375; 96374; 99285; J1953; J1100; J7040; J7030

== ENCOUNTER 2024-04-18 18:50 | Emergency (ER) | payer BC, OTHER ==
[2024-04-18 19:43] LABS: Absolute Basophils 0.1 K/uL (0-0.5); Absolute Eosinophils 0.5 K/uL (0-0.5); Absolute Lymphocytes (CBC) 0.6 K/uL (0.7-4.9); Absolute Monocytes 2.2 K/uL (0.1-1.3); Absolute Neutrophil 27.6 K/uL (1.8-8.0); Basophils % 0.4 % (0-1.3); Eosinophils % 1.6 % (0-4.4); Hematocrit 39.6 % (39.6-49.0); Hemoglobin 13.5 g/dL (13.6-17.9); MCH 29.9 pg (27.0-35.0); MPV 9.5 fL (7.6-11.3); Monocytes % 7.2 % (3.3-12.3); Neutrophils % 88.8 % (41.7-73.7); Platelets 165 thou/uL (152-406); RBC Red Blood Cell Count 4.49 M/uL (4.33-5.43); Red Cell Distribution Width 13.7 % (12.1-15.2)
[2024-04-18 20:06] LABS: Albumin 4.1 g/dL (3.4-5.0); Albumin/Globulin Ratio 1.1 (1.1-1.8); Anion Gap 11.8 mEq/L (5.0-15.0); Bilirubin Direct 0.4 mg/dL (0-0.2); Bilirubin Total 1.4 mg/dL (0.2-1.0); Globulin 3.8 g/dL (2.3-3.5); Magnesium 1.7 mg/dL (1.6-2.4); Potassium 3.8 mEq/L (3.5-5.1); Protein, Total 7.9 g/dL (6.4-8.2); Thyroid Stimulating Hormone 1.3 uIU/mL (0.358-3.740); Troponin High Sensitivity 49.8 pg/mL (<58.9)
--- NOTE | 2024-04-18 22:30 | RAD REPORT ---
EXAM DESCRIPTION: RADChest Single View04/18/2024 8:12 pm CLINICAL HISTORY: CHEST PAIN COMPARISON: Chest Single View dated 04/02/2023; Chest Single View dated 07/18/2021; Abdomen 1 View ([facility]) dated 07/18/2021; Chest Pa And Lat (2 Views) dated 07/16/2021hest Single View dated 04/02/2023; Megan st Single View dated 07/18/2021; Abdomen 1 View ([facility]) dated 07/18/2021; Chest Pa And Lat (2 Views) da bailey 07/16/2021 TECHNIQUE: Portable AP view of the chest. FINDINGS: The lungs are clear. Elevation of the left hemidiaphragm seen. No pneumothorax or effusio n. The cardiomediastinal contours are unremarkable. IMPRESSION: No acute cardiopulmonary process.
[2024-04-18 22:41] LABS: Blood Morphology Comment NOT SEEN (NOT SEEN); Differential Total Cells Count 100; Eosinophils 2 % (0-3); Lymphocytes 5 % (15-42); Monocytes 3 % (0-10); Platelet Estimate ADEQ; Segmented Neutrophils 90 % (40-80)
--- NOTE | 2024-04-18 22:41 | ER ---
Nurse's Notes [facility] Name: Km Lizarraga Age: 73 yrs Sex: Male : 1950 Arrival Date: 04/18/2024 Time: 18:50 Bed 16 Private MD: Booker Samuels C Diagnosis: Atrial fibrillation with rapid ventricular rate;Leukocytosis Presentation: 04/18 19:03 Coronavirus screen: At this time, the client does not indicate any symptoms associated aa5 with coronavirus-19. Ebola Screen: Patient denies travel to an Ebola-affected area in the 21 days before illness onset. Initial Sepsis Screen: Does the patient meet any 2 criteria? HR > 90 bpm. Does the patient have a suspected source of infection? No. Patient's initial sepsis screen is negative. Risk Assessment: Do you want to hurt yourself or someone else? Patient reports no desire to harm self or others. Onset of symptoms was April 18, 2024. 19:03 Acuity: RAMSES 2 aa5 19:03 Method Of Arrival: Ambulatory aa5 19:03 Chief complaint: Chief complaint: Patient states: "my blood pressure was 190/109 and my aa5 heart rate was 142 and I am having chest pain". Historical: - Allergies: 19:02 No Known Allergies; aa5 - PMHx: 19:02 aortic aneurysm; Hyperlipidemia; Hypertension; stents in leg; aa5 - Immunization history:: Adult Immunizations unknown. - Infectious Disease History:: Denies. - Social history:: Smoking status: Patient reports the use of cigarette tobacco products. - Family history:: not pertinent. Screenin:46 [facility] ED Fall Risk Assessment (Adult) History of falling in the last 3 months, ha1 including since admission No falls in past 3 months (0 pts) Confusion or Disorientation No (0 pts) Intoxicated or Sedated No (0 pts) Impaired Gait Yes (1 pt) Mobility Assist Device Used Yes (1 pt) Altered Elimination No (0 pt) Score/Fall Risk Level 3 or more points = High Risk Oriented to surroundings, Maintained a safe environment, Educated pt \\T\\ family on fall prevention, incl call for assistance when getting out of bed, Hourly rounding (assess needs \\T\\ fall precautionary measures) done. Abuse screen: Denies threats or abuse. Denies injuries from another. Nutritional screening: No deficits noted. Tuberculosis screening: No symptoms or risk factors identified. Assessment: 19:20 General: Appears comfortable, Behavior is calm, cooperative. Pain: Complains of pain in ha1 chest Pain does not radiate. Pain currently is 4 out of 10 on a pain scale. Quality of pain is described as pressure, Pain began suddenly. Neuro: Level of Consciousness is awake, alert, obeys commands, Oriented to person, place, time, situation. Cardiovascular: Reports chest pain, Heart tones S1 S2 present Capillary refill < 3 seconds Patient's skin is warm and dry. Rhythm is sinus rhythm. Respiratory: Airway is patent Respiratory effort is even, unlabored, Respiratory pattern is regular, symmetrical. GI: No signs and/or symptoms were reported involving the gastrointestinal system. Abdomen is flat, non-distended, Bowel sounds present X 4 quads. : No signs and/or symptoms were reported regarding the genitourinary system. Derm: Skin is pink, warm \\T\\ dry. 19:20 Reassessment: notified Dr. Ramirez of patient heart rhythm . [facility] 20:20 Reassessment: Patient and/or family updated on plan of care and expected duration. Pain ha1 level reassessed. Patient is alert, oriented x 3, equal unlabored respirations, skin warm/dry/pink. Patient denies pain at this time. Patient states feeling better. Patient states symptoms have improved. 21:20 Reassessment: Patient and/or family updated on plan of care and expected duration. Pain ha1 level reassessed. Patient is alert, oriented x 3, equal unlabored respirations, skin warm/dry/pink. Patient states feeling better. Patient states symptoms have improved. 22:20 Reassessment: Patient and/or family updated on plan of care and expected duration. Pain ha1 level reassessed. Patient is alert, oriented x 3, equal unlabored respirations, skin warm/dry/pink. 22:20 Reassessment: requesting to be discharge. Notified Dr. Ramirez. [facility] 22:30 Reassessment: Dr. Ramirez in patient's room. 1 Vital Signs: 19:03 BP 131 / 99; Pulse 135; Resp 18 S; Temp 97.3(TE); Pulse Ox 98% on R/A; Weight 72.57 kg aa5 (R); Height 5 ft. 10 in. (R); 19:08 BP 165 / 86; Pulse 74; Resp 18 S; Pulse Ox 98% on R/A; ha1 19:30 BP 159 / 79; Pulse 74; Resp 17 S; Pulse Ox 96% on R/A; ha1 20:30 BP 152 / 82; Pulse 71; Resp 17 S; Pulse Ox 96% on R/A; ha1 21:30 BP 155 / 82; Pulse 71; Resp 17 S; Pulse Ox 97% on R/A; ha1 22:00 BP 152 / 82; Pulse 71; Resp 17 S; Pulse Ox 97% on R/A; ha1 19:03 Body Mass Index 22.96 (72.57 kg, 177.8 cm) aa5 ED Course: 18:50 Patient's name was called from ER lobby. No response. aa5 18:53 Patient arrived in ED. gm2 18:54 Booker Samuels MD is Private Physician. gm2 18:56 Michael Ramirez MD is Attending Physician. rt 19:02 Arm band placed on. aa5 19:03 Triage completed. aa5 19:06 EKG completed in triage. Results shown to MD. aa5 19:08 Patient has correct armband on for positive identification. Placed in gown. Bed in low ha1 position. Call light in reach. Side rails up X 1. Adult w/ patient. 19:08 Client placed on continuous cardiac and pulse oximetry monitoring. NIBP monitoring ha1 applied. ekg monitor tech on. 19:10 Sandi Powell, RN is Primary Nurse. ha1 19:50 Inserted saline lock: 20 gauge in right forearm, using aseptic technique. Blood ha1 collected. Flushed with 10 mL NS. 19:57 Basic Metabolic Panel Sent. ha1 19:57 LFT's Sent. ha1 19:57 Magnesium Sent. ha1 19:57 Troponin HS Sent. ha1 20:14 XRAY Chest (1 view) In Process Unspecified. EDMS 20:47 Patient maintains SpO2 saturation greater than 95% on room air. ha1 22:20 Provided Education on: need for admit and elevated pt. stated " I do not want to be ha1 admitted into the hospital.". 22:40 Booker Samuels MD is Referral Physician. rt 22:49 No provider procedures requiring assistance completed. IV discontinued, intact, ha1 bleeding controlled, No redness/swelling at site. Pressure dressing applied. Administered Medications: 20:40 Not Given (converted to sinus rhythmm): [id number] mg IVP once; Over 2 minutes ha1 22:49 Drug: Amoxicillin-Clavulanate PO 875 mg PO once Route: PO; ha1 22:53 Follow up: Response: No adverse reaction ha1 Medication: 22:05 VIS not applicable for this client. ha1 Outcome: 22:41 Discharge ordered by . rt 22:50 Discharged to home via wheelchair, with family, ha1 22:50 Condition: stable 22:50 Discharge instructions given to patient, family, Instructed on discharge instructions, follow up and referral plans. medication usage, Demonstrated understanding of instructions, follow-up care, medications, Prescriptions given X 1, 22:52 Patient left the ED. ha1 Signatures: Dispatcher [employer] EDMS Viki Mendoza RN RN aa5 Sandi Powell RN RN ha1 Michael Ramirez MD MD rt Christy Andrade 2 Corrections: (The following items were deleted from the chart) 19:04 19:03 Chief complaint: aa5 aa5 22:51 22:50 Discharge instructions given to patient, family, Instructed on discharge ha1 instructions, follow up and referral plans. medication usage, Demonstrated understanding of instructions, follow-up care, medications, ha1
--- NOTE | 2024-04-18 22:41 | EDPHYS ---
Physician Documentation [facility] Name: Km Lizarraga Age: 73 yrs Sex: Male : 1950 Arrival Date: 04/18/2024 Time: 18:50 Bed 16 Private MD: Booker Samuels C ED Physician Michael Ramirez HPI: 04/18 19:13 This 73 yrs old Male presents to ER via Ambulatory with complaints of Chest Pain, High rt Blood Pressure. 19:13 Patient presents to the ED with a substernal chest pain, nonradiating starting by hour rt prior to arrival. Patient denies any inciting event. States that his heart rate was elevated. Reports a weakness when he walks. Denies other acute complaints at this time, symptoms are moderate in severity, no other aggravating relieving factors. Historical: - Allergies: 19:02 No Known Allergies; aa5 - PMHx: 19:02 aortic aneurysm; Hyperlipidemia; Hypertension; stents in leg; aa5 - Immunization history:: Adult Immunizations unknown. - Infectious Disease History:: Denies. - Social history:: Smoking status: Patient reports the use of cigarette tobacco products. - Family history:: not pertinent. ROS: 19:13 Constitutional: Negative for fever, chills, and weight loss, Respiratory: Negative for rt shortness of breath, cough, wheezing, and pleuritic chest pain, Abdomen/GI: Negative for abdominal pain, nausea, vomiting, diarrhea, and constipation, MS/Extremity: Negative for injury and deformity, Skin: Negative for injury, rash, and discoloration, Neuro: Negative for headache, weakness, numbness, tingling, and seizure, 19:13 Cardiovascular: Positive for chest pain, Negative for edema, Exam: 19:13 Constitutional: This is a well developed, well nourished patient who is awake, alert, rt and in no acute distress. Chest/axilla: Normal chest wall appearance and motion. Nontender with no deformity. No lesions are appreciated. Cardiovascular: Regular rate and rhythm with a normal S1 and S2. No gallops, murmurs, or rubs. Normal PMI, no JVD. No pulse deficits. Respiratory: Lungs have equal breath sounds bilaterally, clear to auscultation and percussion. No rales, rhonchi or wheezes noted. No increased work of breathing, no retractions or nasal flaring. Abdomen/GI: Soft, non-tender, with normal bowel sounds. No distension or tympany. No guarding or rebound. No evidence of tenderness throughout. Skin: Warm, dry with normal turgor. Normal color with no rashes, no lesions, and no evidence of cellulitis. MS/ Extremity: Pulses equal, no cyanosis. Neurovascular intact. Full, normal range of motion. Neuro: Awake and alert, GCS 15, oriented to person, place, time, and situation. Cranial nerves II-XII grossly intact. Motor strength 5/5 in all extremities. Sensory grossly intact. Cerebellar exam normal. Normal gait. 19:13 ECG was reviewed by the Attending Physician. Vital Signs: 19:03 BP 131 / 99; Pulse 135; Resp 18 S; Temp 97.3(TE); Pulse Ox 98% on R/A; Weight 72.57 kg aa5 (R); Height 5 ft. 10 in. (R); 19:08 BP 165 / 86; Pulse 74; Resp 18 S; Pulse Ox 98% on R/A; ha1 19:30 BP 159 / 79; Pulse 74; Resp 17 S; Pulse Ox 96% on R/A; ha1 20:30 BP 152 / 82; Pulse 71; Resp 17 S; Pulse Ox 96% on R/A; ha1 21:30 BP 155 / 82; Pulse 71; Resp 17 S; Pulse Ox 97% on R/A; ha1 22:00 BP 152 / 82; Pulse 71; Resp 17 S; Pulse Ox 97% on R/A; ha1 19:03 Body Mass Index 22.96 (72.57 kg, 177.8 cm) aa5 MDM: 19:09 Patient medically screened. rt 04/19 02:50 Differential diagnosis: A-fib, infection, dysrhythmia. Data reviewed: vital signs, rt nurses notes, lab test result(s), EKG, radiologic studies. Consideration of Admission/Observation Patient was admitted/placed on observation. Patient refused admission to the hospital, he has decision-making opacity, discussed risk and benefits with the patient. Will follow-up as an outpatient, return precautions discussed.. Management of patient was discussed with the following: Primary Care Provider: Informed PCP of patient leaving against medical ice. Care significantly affected by the following chronic conditions: Hypertension. Counseling: I had a detailed discussion with the patient and/or guardian regarding the historical points, exam findings, and any diagnostic results supporting the discharge/admit diagnosis, lab results, radiology results, the need for outpatient follow up. Response to treatment: the patient's symptoms have markedly improved after treatment. 04/18 19:11 Order name: Basic Metabolic Panel; Complete Time: 20:08 rt 04/18 19:11 Order name: CBC with Diff; Complete Time: 22:42 rt 04/18 19:11 Order name: LFT's; Complete Time: 20:08 rt 04/18 19:11 Order name: Magnesium; Complete Time: 20:08 rt 04/18 19:11 Order name: Troponin HS; Complete Time: 20:08 rt 04/18 19:11 Order name: TSH; Complete Time: 20:08 rt 04/18 22:41 Order name: Manual Differential; Complete Time: 22:42 EDMS 04/18 19:11 Order name: XRAY Chest (1 view); Complete Time: 22:33 rt 04/18 19:06 Order name: EKG - Nurse/Tech; Complete Time: 19:06 aa5 04/18 19:11 Order name: Cardiac monitoring; Complete Time: 19:57 rt 04/18 19:11 Order name: IV Saline Lock; Complete Time: 19:57 rt 04/18 19:11 Order name: Labs collected and sent; Complete Time: 19:57 rt 04/18 19:11 Order name: O2 Per Protocol; Complete Time: 19:57 rt 04/18 19:11 Order name: O2 Sat Monitoring; Complete Time: 19:57 rt EC/25 19:13 Rate is 128 beats/min. Rhythm is irregularly irregular, A fib with No ectopy, Rate rt related ST and T wave changes. QRS [place] is Normal. [place] interval is normal. QRS interval is normal. QT interval is normal. No Q waves. Administered Medications: 20:40 Not Given (converted to sinus rhythmm): [id number] mg IVP once; Over 2 minutes ha1 22:49 Drug: Amoxicillin-Clavulanate PO 875 mg PO once Route: PO; ha1 22:53 Follow up: Response: No adverse reaction ha1 Disposition Summary: 04/18/24 22:41 Discharge Ordered Notes: Location: Home rt Problem: new rt Symptoms: have improved rt Condition: Undetermined rt Diagnosis - Atrial fibrillation with rapid ventricular rate rt - Leukocytosis rt Followup: rt - With: Booker Samuels MD - When: Tomorrow - Reason: Followup: rt - With: Emergency Department - When: As needed - Reason: Worsening of condition Discharge Instructions: - Discharge Summary Sheet rt - Atrial Fibrillation rt - Leukocytosis rt Forms: - Medication Reconciliation Form rt - Antibiotic Education rt - Prescription Opioid Use rt - Patient Portal Instructions rt - Leadership Thank You Letter rt Prescriptions: - Augmentin 875-125 mg Oral Tablet - take 1 tablet ORAL route every 12 hours for 10 days; 20 tablet; Refills: 0, rt Product Selection Permitted Signatures: Dispatcher [employer] Viki Jenkins, RN RN aa5 Sandi Powell RN RN ha1 Michael Ramirez MD MD rt Corrections: (The following items were deleted from the chart) 19:12 19:12 Chest Single View+RAD.RAD.BRZ ordered. EDMS EDMS
[2024-04-18] MEDS ORDERED: AMOX/K CLAV 875 MG TAB ONE (22:46)
[2024-04-18 23:34] VITALS: TEMP 97.3
[2024-04-18 23:41] VITALS: O2SAT 97
[2024-04-18 23:42] VITALS: BP 152/82
--- NOTE | 2024-04-19 10:00 | EKG ---
Test Date: 2024-04-18 Test Time: 19:05:42 [employer] Service Technician: RAJ MEASUREMENT RESULTS: Intervals: Rate: 128 NM: QRSD: 86 QT: 322 QTc: 470 [place]: P: NM: QRS: 85 T: 42 INTERPRETIVE STATEMENTS: Atrial fibrillation with premature ventricular or aberrantly conducted complexes Nonspecific ST and T wave abnormality, probably digitalis effect Abnormal ECG Compared to ECG 04/02/2023 21:35:55 Ventricular premature complex(es) now present ST (T wave) deviation now present Sinus bradycardia no longer present Electronically Signed On 04-19-24 10:00:02 CDT by Darrel Angeles
== END 2024-04-18 22:52 | disposition home or self-care (01) ==
LOC: ER 18:50
DX: I48.91 Unspecified atrial fibrillation (principal); D72.829 Elevated white blood cell count, unspecified; I10 Essential (primary) hypertension; E78.5 Hyperlipidemia, unspecified; Z72.0 Tobacco use
CPT/HCPCS: 36415; 71045; 80048; 80076; 83735; 84443; 84484; 85025; 93005; 99285

== ENCOUNTER 2024-04-19 11:37 | Inpatient (IN) | payer BC, OTHER ==
--- NOTE | 2024-04-19 13:06 | RAD REPORT ---
EXAM DESCRIPTION: Rosio Single View04/19/2024 12:50 pm CLINICAL HISTORY: Cough COMPARISON: April 18, 2024 FINDINGS: Chronic elevation left hemidiaphragm Mild COPD Lungs appear clear of acute infiltrate. Heart is normal size 11 millimeter linear radiopaque density overlying right clavicle presumably overlying artifact
[2024-04-19 13:31] LABS: SARS-CoV-2 Antigen CONTROL BLUE LINE VIS/BG OK; SARS-CoV-2 Antigen Rapid Res Negative (Negative)
[2024-04-19 13:35] LABS: Absolute Eosinophils 0.6 K/uL (0-0.5); Absolute Lymphocytes (CBC) 0.8 K/uL (0.7-4.9); Absolute Neutrophil 11.3 K/uL (1.8-8.0); Basophils % 0.2 % (0-1.3); Eosinophils % 4.1 % (0-4.4); Hematocrit 40.6 % (39.6-49.0); Hemoglobin 13.8 g/dL (13.6-17.9); Lymphocytes % 5.9 % (15.3-44.8); MCHC 33.9 g/dL (32.0-36.0); MCV 88.4 fL (80-100); MPV 9.9 fL (7.6-11.3); Neutrophils % 82.8 % (41.7-73.7); Platelets 171 thou/uL (152-406)
[2024-04-19 13:43] LABS: PTT, Activated Partial Thromb 34.1 SECONDS (24.3-36.9); Protime INR 1.07
[2024-04-19] MEDS ORDERED: CEFTRIAXONE 1000 MG/VIAL ONE (13:48)
[2024-04-19] MEDS ORDERED: NA CHLORIDE 0.9% 0 ML ONE (13:49)
[2024-04-19] MEDS ORDERED: NA CHLORIDE 0.9% 50 ML ONE (13:51)
[2024-04-19 13:52] LABS: Albumin 3.9 g/dL (3.4-5.0); Anion Gap 11.2 mEq/L (5.0-15.0); Bilirubin Total 1.5 mg/dL (0.2-1.0); Globulin 3.8 g/dL (2.3-3.5); Potassium 4.2 mEq/L (3.5-5.1); Protein, Total 7.7 g/dL (6.4-8.2)
[2024-04-19] MEDS ORDERED: NA CHLORIDE 0.9% 2,000 ML ONE (14:21)
--- NOTE | 2024-04-19 14:28 | ER ---
Nurse's Notes [facility] Name: Km Lizarraga Age: 73 yrs Sex: Male : 1950 Arrival Date: 04/19/2024 Time: 11:37 Bed 10 Private MD: Booker Samuels C Diagnosis: Leukocytosis Presentation: 04/19 12:03 Chief complaint: Patient states: was seen here yesterday for afib RVR, had an elevated iw WBC , was offered admission and he declined, Dr. Samuels sent him back for septic workup and admission. Coronavirus screen: Client presents with at least one sign or symptom that may indicate coronavirus-19. Ebola Screen: No symptoms or risks identified at this time. Risk Assessment: Do you want to hurt yourself or someone else? Patient reports no desire to harm self or others. Onset of symptoms was April 19, 2024. 12:03 Method Of Arrival: Ambulatory iw 12:03 Acuity: RAMSES 3 iw 04/20 00:14 Initial Sepsis Screen: Does the patient meet any 2 criteria? No. Patient's initial tl4 sepsis screen is negative. Does the patient have a suspected source of infection? No. Patient's initial sepsis screen is negative. 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 - Infectious Disease History:: Denies. - Social history:: Smoking status: Patient reports the use of cigarette tobacco products, smokes two packs cigarettes per day. Screenin:29 [facility] ED Fall Risk Assessment (Adult) History of falling in the last 3 months, tl4 including since admission No falls in past 3 months (0 pts) Confusion or Disorientation No (0 pts) Intoxicated or Sedated No (0 pts) Impaired Gait No (0 pts) Mobility Assist Device Used No (0 pt) Altered Elimination No (0 pt) Score/Fall Risk Level 0 - 2 = Low Risk Oriented to surroundings, Maintained a safe environment, Educated pt \T\ family on fall prevention, incl call for assistance when getting out of bed, Assessed \T\ reinforced patient's understanding of fall precautions. Abuse screen: Denies threats or abuse. Denies injuries from another. Nutritional screening: No deficits noted. Tuberculosis screening: No symptoms or risk factors identified. Assessment: 13:31 General: Appears in no apparent distress. Behavior is calm, cooperative. Pain: Denies tl4 pain. Pain does not radiate. Pain began Pt had chest discomfort yesterday, currently denies pain. Neuro: Level of Consciousness is awake, alert, obeys commands, Oriented to person, place, time, situation, Moves all extremities. Full function Speech is normal, Facial symmetry appears normal. Cardiovascular: Denies chest pain, diaphoresis, fatigue, lightheadedness, palpitations, shortness of breath, syncope, Capillary refill < 3 seconds Patient's skin is warm and dry. Respiratory: Airway is patent Respiratory effort is even, unlabored, Respiratory pattern is regular, symmetrical, Breath sounds are clear. GI: No deficits noted. No signs and/or symptoms were reported involving the gastrointestinal system. : No deficits noted. No signs and/or symptoms were reported regarding the genitourinary system. EENT: No deficits noted. No signs and/or symptoms were reported regarding the EENT system. Derm: No deficits noted. No signs and/or symptoms reported regarding the dermatologic system. Musculoskeletal: No deficits noted. No signs and/or symptoms reported regarding the musculoskeletal system. 15:55 Reassessment: Patient and/or family updated on plan of care and expected duration. Pain tl4 level reassessed. Patient is alert, oriented x 3, equal unlabored respirations, skin warm/dry/pink. Pt denies needs, family at bedside, call briseno at bedside, will continue to monitor. 17:08 Reassessment: Patient and/or family updated on plan of care and expected duration. Pain tl4 level reassessed. Patient is alert, oriented x 3, equal unlabored respirations, skin warm/dry/pink. Pt given dinner tray, denies any needs at this time, call briseno at bedside, door left open to facilitate air flow due to no AC, will continue to monitor. 18:12 Reassessment: Patient and/or family updated on plan of care and expected duration. Pain tl4 level reassessed. Patient is alert, oriented x 3, equal unlabored respirations, skin warm/dry/pink. Pt denies any needs at this time, call briseno at bedside, will continue to monitor. Vital Signs: 12:03 BP 97 / 73; Pulse 70; Resp 18; Temp 97.5(O); Pulse Ox 96% ; Weight 69.85 kg; Height 5 iw ft. 10 in. ; 13:30 BP 133 / 69; Pulse 75; Resp 18; Pulse Ox 97% on R/A; tl4 14:30 BP 121 / 66; Pulse 65; Resp 20; Pulse Ox 97% on R/A; tl4 15:30 BP 139 / 70; Pulse 75; Resp 26; Pulse Ox 95% on R/A; tl4 16:00 BP 134 / 65; Pulse 73; Resp 24; Pulse Ox 95% on R/A; tl4 17:00 BP 133 / 73; Pulse 73; Resp 21; Pulse Ox 95% on R/A; tl4 18:00 BP 155 / 85; Pulse 75; Resp 26; Pulse Ox 96% on R/A; tl4 19:00 BP 143 / 57; Pulse 72; Resp 22; Pulse Ox 97% on R/A; tl4 20:00 BP 155 / 69; Pulse 72; Resp 16; Pulse Ox 97% on R/A; tl4 21:00 BP 162 / 78; Pulse 73; Resp 18; Pulse Ox 96% on R/A; tl4 22:00 BP 141 / 75; Pulse 70; Resp 16; Pulse Ox 98% on R/A; tl4 23:00 BP 137 / 76; Pulse 74; Resp 22; Pulse Ox 95% on R/A; tl4 12:03 Body Mass Index 22.10 (69.85 kg, 177.8 cm) iw ED Course: 11:38 Patient arrived in ED. as 11:39 Booker Samuels MD is Private Physician. as 11:43 Paul Allen MD is Attending Physician. ec2 12:04 Triage completed. iw 12:05 Arm band placed on. iw 12:50 Chest Single View In Process Unspecified. EDMS 13:28 Mahesh Estevez, ABIMAEL is Primary Nurse. tl4 13:28 SARS RAPID Sent. tl4 13:28 Influenza Screen (a \T\ B) Sent. tl4 13:29 Ptt, Activated Sent. tl4 13:29 Protime (+inr) Sent. tl4 13:29 Lactate w/ 2H reflex if indic. Sent. tl4 13:29 CMP Sent. tl4 13:29 CBC with Diff Sent. tl4 13:29 Blood Culture Adult (2) Sent. tl4 13:29 No provider procedures requiring assistance completed. Initial lab(s) drawn, by me, tl4 sent to lab. First set of blood cultures drawn by me, COVID swab sent to lab. Flu and/or RSV swab sent to lab. Patient maintains SpO2 saturation greater than 95% on room air. 13:30 Patient has correct armband on for positive identification. Placed in gown. Bed in low tl4 position. Call light in reach. Side rails up X2. Provided Education on: ed process, call briseno. Client placed on continuous cardiac and pulse oximetry monitoring. NIBP monitoring applied. equipment monitor phototypesetting on. Door closed. Noise minimized. Lights dimmed. Moved to private room. Warm blanket given. Pillow given. 14:25 Booker Samuels MD is Hospitalizing Provider. ec2 14:47 Blood Culture Adult (2) Sent. tl4 14:47 Second set of blood cultures drawn by me, EKG done, by ED staff, reviewed by Paul Allen MD. Inserted saline lock: 22 gauge in right forearm, using aseptic technique. Blood collected. Flushed with 10 mL NS. 16:14 1614 CM met with patient and Abena at the bedside in the ED exam room. Patient ane identified with name and . Demographic sheet confirmed .Patient states he lives in a single story home with his Abena. Mr. Lizarraga reports that prior to admission, he performs ADLs independently and without physical limitations. No DME, HH, DME, home oxygen, or other medical services. 's preferred plan is to return home upon discharge. Abena states she can transport home when he is discharged. CM team will continue to follow and coordinate care. 21:24 Urinalysis w/ reflexes Sent. tl4 04/20 00:14 Patient admitted, IV remains in place. tl4 Administered Medications: 04/19 14:48 Drug: NS 0.9% IV 1000 ml IV at 1 bolus Per protocol; 1000 mL bolus Route: IV; Rate: 1 tl4 bolus; Site: right forearm; Delivery: Primary tubing; 16:00 Follow up: Response: No adverse reaction; IV Status: Completed infusion; IV Intake: tl4 1000ml 14:49 Drug: Rocephin IV 1 grams IV at calculated rate once; Given slow IV push per pharmacy tl4 instructions {Note: mixed in 50mL NS.} Route: IV; Rate: calculated rate; Site: right forearm; Delivery: Primary tubing; 15:20 Follow up: Response: No adverse reaction; IV Status: Completed infusion; IV Intake: tl4 100ml 14:49 Drug: NS 0.9% IV 1000 ml IV at 1 bolus Per protocol; 1000 mL bolus Route: IV; Rate: 1 tl4 bolus; Site: right forearm; Delivery: Primary tubing; 16:00 Follow up: Response: No adverse reaction; IV Status: Completed infusion; IV Intake: tl4 1000ml Medication: 13:31 VIS not applicable for this client. tl4 Intake: 15:20 IV: 100ml; Total: 100ml. tl4 16:00 IV: 1000ml; Total: 1100ml. tl4 16:00 IV: 1000ml; Total: 2100ml. tl4 Outcome: 14:26 Decision to Hospitalize by Provider. ec2 04/20 00:14 Admitted to Tele tl4 Condition: stable Instructed on the need for admit, 00:57 Patient left the ED. ss Signatures: Dispatcher [employer] Barbra Pemberton Irene, RN RN Elizabeth Shin RN RN Paul Allen MD MD ec2 Mahesh Estevez RN RN tl4 Iqra Kellogg RN RN ane Corrections: (The following items were deleted from the chart) 04/19 12:08 12:03 BP 97 / 73; Pulse 70bpm; Resp 18bpm; Pulse Ox 96%; iw iw 12:49 12:41 In radiology for Chest Single View+RAD.RAD.BRZ. EDMS EDMS
--- NOTE | 2024-04-19 14:28 | EDPHYS ---
Physician Documentation [facility] Name: Km Lizarraga Age: 73 yrs Sex: Male : 1950 Arrival Date: 04/19/2024 Time: 11:37 Bed 10 Private MD: Booker Samuels C ED Physician Paul Allen HPI: 04/19 12:06 This 73 yrs old Male presents to ER via Ambulatory with complaints of ec2 Abnormal Lab Results - WBCs, Irregular Pulse. 12:06 Patient returns to the emergency department after being seen last night. I spoke with ec2 Dr. Samuels prior to arrival, patient told he had a leukocytosis, was in A-fib with RVR and offered admission however patient declined. Patient was started on Augmentin. Patient was seen in PCP office and had soft blood pressures and told to come to the ED. Patient reports no symptoms, denies chest pain, denies difficulty breathing, no nausea or vomiting, no diarrhea. . 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 - Infectious Disease History:: Denies. - Social history:: Smoking status: Patient reports the use of cigarette tobacco products, smokes two packs cigarettes per day. ROS: 12:07 Constitutional: as per hpi ec2 Exam: 12:07 Constitutional: GEN: NAD Head: atraumatic Eyes: EOMI Ears: External ears are ec2 normal. CV: regular rate LUNGS: no respiratory distress ABD: non-distended SKIN: no evidence of rashes MSK: no evidence of trauma Vital Signs: 12:03 BP 97 / 73; Pulse 70; Resp 18; Temp 97.5(O); Pulse Ox 96% ; Weight 69.85 kg; Height 5 iw ft. 10 in. ; 13:30 BP 133 / 69; Pulse 75; Resp 18; Pulse Ox 97% on R/A; tl4 14:30 BP 121 / 66; Pulse 65; Resp 20; Pulse Ox 97% on R/A; tl4 15:30 BP 139 / 70; Pulse 75; Resp 26; Pulse Ox 95% on R/A; tl4 16:00 BP 134 / 65; Pulse 73; Resp 24; Pulse Ox 95% on R/A; tl4 17:00 BP 133 / 73; Pulse 73; Resp 21; Pulse Ox 95% on R/A; tl4 18:00 BP 155 / 85; Pulse 75; Resp 26; Pulse Ox 96% on R/A; tl4 19:00 BP 143 / 57; Pulse 72; Resp 22; Pulse Ox 97% on R/A; tl4 20:00 BP 155 / 69; Pulse 72; Resp 16; Pulse Ox 97% on R/A; tl4 21:00 BP 162 / 78; Pulse 73; Resp 18; Pulse Ox 96% on R/A; tl4 22:00 BP 141 / 75; Pulse 70; Resp 16; Pulse Ox 98% on R/A; tl4 23:00 BP 137 / 76; Pulse 74; Resp 22; Pulse Ox 95% on R/A; tl4 12:03 Body Mass Index 22.10 (69.85 kg, 177.8 cm) iw MDM: 11:44 Patient medically screened. ec2 12:07 Data reviewed: vital signs. ED course: Patient arrives today for reevaluation. I spoke ec2 with Dr. Samuels as per above. Will obtain a septic workup empirically given ceftriaxone. Differential includes anemia, dehydration, electrolyte disturbances, arrhythmia, infection. . 13:54 ED course: EKG independently reviewed and interpreted by me, shows normal sinus rhythm, ec2 rate 65, no acute ST segment elevations, intervals are nonconcerning. . 14:06 ED course: Metabolic profile shows renal dysfunction with a creatinine of 2.2, CBC ec2 shows WBC at 13.6. Will give the patient additional crystalloid, resuscitate with additional crystalloid. . 04/19 12:05 Order name: Blood Culture Adult (2) ec2 04/19 12:05 Order name: CBC with Diff; Complete Time: 13:41 ec2 04/19 12:05 Order name: CMP; Complete Time: 14:06 ec2 04/19 12:05 Order name: Lactate w/ 2H reflex if indic.; Complete Time: 14:06 ec2 04/19 12:05 Order name: Protime (+inr); Complete Time: 13:44 ec2 04/19 12:05 Order name: Ptt, Activated; Complete Time: 13:44 ec2 04/19 12:05 Order name: Urinalysis w/ reflexes ec2 04/19 12:06 Order name: Influenza Screen (a \T\ B); Complete Time: 13:32 ec2 04/19 12:06 Order name: SARS RAPID; Complete Time: 13:32 ec2 04/19 14:17 Order name: UAM; Complete Time: 20:14 ec2 04/19 14:34 Order name: CBC with Automated Diff EDMS 04/19 14:34 Order name: Comprehensive Metabolic Panel EDMS 04/19 14:34 Order name: Urinalysis w/ reflexes EDMS 04/19 14:40 Order name: Glucose, Ancillary Testing; Complete Time: 20:14 EDMS 04/19 12:50 Order name: Chest Single View; Complete Time: 13:07 EDMS 04/19 12:05 Order name: Accucheck; Complete Time: 14:47 ec2 04/19 12:05 Order name: Cardiac monitoring; Complete Time: 13:28 ec2 04/19 12:05 Order name: EKG - Nurse/Tech; Complete Time: 14:22 ec2 04/19 12:05 Order name: IV Saline Lock - Large Bore; Complete Time: 13:28 ec2 04/19 12:05 Order name: Labs collected and sent; Complete Time: 13:28 ec2 04/19 12:05 Order name: O2 Per Protocol; Complete Time: 13:28 ec2 04/19 12:05 Order name: O2 Sat Monitoring; Complete Time: 13:28 ec2 04/19 12:05 Order name: Vital Signs; Complete Time: 13:29 ec2 Administered Medications: 14:48 Drug: NS 0.9% IV 1000 ml IV at 1 bolus Per protocol; 1000 mL bolus Route: IV; Rate: 1 tl4 bolus; Site: right forearm; Delivery: Primary tubing; 16:00 Follow up: Response: No adverse reaction; IV Status: Completed infusion; IV Intake: tl4 1000ml 14:49 Drug: Rocephin IV 1 grams IV at calculated rate once; Given slow IV push per pharmacy tl4 instructions {Note: mixed in 50mL NS.} Route: IV; Rate: calculated rate; Site: right forearm; Delivery: Primary tubing; 15:20 Follow up: Response: No adverse reaction; IV Status: Completed infusion; IV Intake: tl4 100ml 14:49 Drug: NS 0.9% IV 1000 ml IV at 1 bolus Per protocol; 1000 mL bolus Route: IV; Rate: 1 tl4 bolus; Site: right forearm; Delivery: Primary tubing; 16:00 Follow up: Response: No adverse reaction; IV Status: Completed infusion; IV Intake: tl4 1000ml Disposition Summary: 04/19/24 14:26 Hospitalization Ordered Notes: Hospitalization Status: Inpatient Admission ec2 Provider: Booker Samuels Condition: Stable ec2 Problem: an ongoing problem ec2 Symptoms: are unchanged ec2 Bed/Room Type: Standard ec2 Location: Telemetry/MedSurg (Inpatient)(04/19/24 22:21) Room Assignment: 418(04/19/24 22:50) Diagnosis - Leukocytosis ec2 Forms: - Medication Reconciliation Form ec2 - SBAR form ec2 - Leadership Thank You Letter ec2 Signatures: Dispatcher [employer] EDNJ Kira De La Rosa Kimberly, RN RN kl Williams, Irene, RN RN iw [place], Ryan, MD MD rt Paul Allen MD MD ec2 Mahesh Estevez RN RN tl4 Corrections: (The following items were deleted from the chart) 12:06 12:06 BLOOD CULTURE*+BA.LAB.BRZ ordered. EDNJ EDNJ 12:06 12:06 CBC+H.LAB.BRZ ordered. EDNJ EDNJ 12:06 12:06 COMPREHENSIVE METABOLIC PANEL+C.LAB.BRZ ordered. EDNJ EDNJ 12:06 12:06 LACTATE+C.LAB.BRZ ordered. EDNJ EDNJ 12:06 12:06 PROTIME (+INR)+COAG.LAB.BRZ ordered. EDNJ EDNJ 12:06 12:06 PTT, ACTIVATED+COAG.LAB.BRZ ordered. EDNJ EDNJ 12:06 12:06 Urinalysis+U.LAB.BRZ ordered. [facility] EDNJ 12:49 12:06 Chest Single View+RAD.RAD.BRZ ordered. EDNJ EDNJ 14:24 14:06 ED course: Metabolic profile shows renal dysfunction with a creatinine of 2.2, ec2 CBC shows WBC at 13.6. Will be the patient additional crystalloid, resuscitate with additional crystalloid. . ec2 16:55 14:26 Telemetry/MedSurg (Inpatient) ec2 bd 16:55 14:26 ec2 bd 22: 16:55 [facility] ER HOLD bd kl 22: 16:55 ERHOLD- bd kl 22:50 22:21 [address]
[2024-04-19] MEDS ORDERED: ACETAMINOPHEN 325 MG TABLET PO PRN (14:30)
[2024-04-19] MEDS ORDERED: ONDANSETRON 4 MG/2 ML VIAL IV PRN (14:30)
[2024-04-19 17:15] LABS: Specific Gravity 1.014 (1.005-1.030); Sqamous Epithelial None Seen /HPF (None Seen); Urine Bacteria None Seen /HPF (<20); Urine Bilirubin NEGATIVE (Negative); Urine Blood Trace (Negative); Urine Clarity Turbid (Clear); Urine Color Yellow (Yellow); Urine Crystals Unidentified Few /HPF (None Seen); Urine Culture Reflex Order REFLEXED; Urine Glucose NEGATIVE (Negative); Urine Ketones NEGATIVE (Negative); Urine Micro Reflex YN NO BILL MICROSCOPIC; Urine Mucus Slight /HPF (None Seen); Urine Nitrite 1+ (Negative); Urine Protein 2+ (Negative); Urine RBC <5 /HPF (None Seen); Urine Urobilinogen 1+ (Normal); Urine WBC 20-50 /HPF (<5); Urine WBC Clump Rare /HPF (None Seen)
[2024-04-19 23:52] VITALS: BMI 22.1
[2024-04-20 01:38] VITALS: O2SAT 95
[2024-04-20] MEDS: NA CHLORIDE 0.9% 1,000 ML IV SCH (02:13)
[2024-04-20 06:05] LABS: Absolute Eosinophils 0.6 K/uL (0-0.5); Absolute Lymphocytes (CBC) 1.1 K/uL (0.7-4.9); Absolute Monocytes 0.9 K/uL (0.1-1.3); Absolute Neutrophil 5.5 K/uL (1.8-8.0); Basophils % 0.4 % (0-1.3); Eosinophils % 7.7 % (0-4.4); Hematocrit 32.8 % (39.6-49.0); Hemoglobin 11.6 g/dL (13.6-17.9); Lymphocytes % 13.8 % (15.3-44.8); MCH 31.2 pg (27.0-35.0); MCHC 35.3 g/dL (32.0-36.0); MCV 88.3 fL (80-100); MPV 9.5 fL (7.6-11.3); Monocytes % 11.5 % (3.3-12.3); Neutrophils % 66.6 % (41.7-73.7); Nucleated Red Blood Cells % 0.1 % (0-0); Platelets 142 thou/uL (152-406); RBC Red Blood Cell Count 3.72 M/uL (4.33-5.43); Red Cell Distribution Width 13.8 % (12.1-15.2)
[2024-04-20 06:22] LABS: Anion Gap 9.9 mEq/L (5.0-15.0); Potassium 3.9 mEq/L (3.5-5.1)
--- NOTE | 2024-04-20 08:08 | HP ---
Date of Admission: 04/19/2024 Chief Complaint: Feeling weak, tired, and heart racing feeling. History Of Present Illness: This is a 73-year-old male patient, who came into office today for zachary wumaria e visit with his after he went to emergency room last night. The patient had worked outside [employer] his yard yesterday and in the evening time, he started to have heart racing feeling. He came into emergency room with this and was found to have atrial fibrillation with rapid ventricular rate and he converted into sinus rhythm on his own without any intervention in the emergency room. His WBC coun t was noted to be 31.1 in the emergency room and creatinine 1.72, BUN 24. The patient was recommende d to stay in the hospital to get admitted, but he denied and wanted to go home. So, ER physician orquidea e him 1 dose of antibiotic which we believe was Augmentin in the emergency room and the patient was d ischarged to go home with prescription of Augmentin, which he has not started yet, but he came into s [facility] at office today and after he was evaluated, decision was made to admit him to the hospital. Th e patient denies any complaints of cough, congestion, sore throat. No expectoration. No abdominal p ain, nausea, vomiting, diarrhea, or constipation. No urinary complaints like dysuria or hematuria. The patient did not have any urinalysis done in the emergency room. The patient is complaining of fe eling weak and tired and at office when I saw him, he was noted to have low blood pressure. With all this, decision was made to send him back to the hospital as I was concerned about sepsis and the pat ient agreed and his took him to emergency room. I did call ER physician and communicated all th e details and after the patient was evaluated in the ER today, he was admitted to the hospital. Allergies: TO CODEINE CAUSING ITCHING, Medications: Amlodipine 10 mg daily in morning, Folbic 1 tablet daily, aspirin 81 mg daily, atorvast atin 40 mg daily at bedtime, clopidogrel 75 mg daily, doxazosin 1 mg 2 times a day, ezetimibe 10 mg d aily, methocarbamol 750 mg daily as needed, metoprolol tartrate 50 mg takes 2 tablets 2 times a day, tadalafil 5 mg daily, mg daily, tramadol 50 mg as needed for back pain. Review of Systems: Constitutional: As mentioned above. Cardiovascular: As mentioned above and it is important to note that the patient reports having 2 or 3 other episodes of palpitation in last few months that spontaneously got resolved after short time. All other systems reviewed and negative. Past Medical History: Significant for impaired fasting glucose, COPD, asbestosis, hypertension, mixe d hyperlipidemia, peripheral vascular disease, carotid artery stenosis, known alcoholic fatty liver d isease, renal cyst, benign prostatic hypertrophy, chronic kidney disease stage IIIB. Past Surgical History: Significant for cholecystectomy and angioplasty with stent placement in the l eft leg. Family History: Father , had pancreatic cancer, colon cancer. Mother , had myocardial infar ctions. Brother has asthma and polio. Sister, breast cancer. Social History: Prior history of smoking, not at present time. Use of alcohol, negative. Physical Examination: Vital Signs: At office today when he came in, blood pressure was 91/60, pulse 69, temperature 97.3, respiratory rate 17. Weight 154 pounds, height 70 inches. General: Awake, alert, oriented, not in distress. HEENT: Head atraumatic, normocephalic. Conjunctivae nonerythematous. Sclerae white. Mouth, no thr ush or edema noted. Ears/Nose, no mass, lesion, discharge noted. Neck: Supple. No JVD, lymph nodes, bruit, thyromegaly noted. Lungs: Bilateral good equal air entry. Clear to auscultation. No rhonchi. No rales. Heart: Normal heart sounds, no murmur or gallop. Abdomen: Soft, bowel sounds normal. No guarding, rigidity, tenderness, mass, hepatosplenomegaly, dis tention, or bruit noted. Extremities: No leg edema. No calf tenderness. Skin: No rash, ulcer, cellulitis. Lymphatics: No lymph node enlargement in neck, supraclavicular, infraclavicular region. Neuro: No focal neurological deficit. Chest: Unremarkable. External Genitalia: Deferred. Rectal: Deferred. Laboratory Data: Yesterday when the patient came into emergency room, WBC count was 31.1, hemoglobin 13.5, platelets 165, BUN 24, creatinine 1.72. Today, white count 13.6, hemoglobin 13.8, and platele t count 171. COVID-19 test negative. Sodium 133, potassium 4.2, chloride 103, bicarb 23, BUN 30, cr eatinine 2.20, glucose 157. Liver function tests unremarkable except total bilirubin 1.5. Urinalysi s shows trace blood, 1+ nitrite, 250 leukocytes, and 20 to 50 wbc's. Chest x-ray, . Impression: 1.Sepsis. 2.Urinary tract infection. 3.Acute kidney injury. 4.Chronic kidney disease stage IIIA. 5.Hypertension. 6.Mixed hyperlipidemia. 7.Peripheral vascular disease. 8.Carotid artery stenosis, bilateral. 9.Chronic obstructive pulmonary disease. 10.Benign prostatic hypertrophy. 11.Impaired fasting glucose. Plan: We will go ahead and admit the patient to hospital for further evaluation and management of th is problem. The patient is appropriate for inpatient and is expected to spend [address] [facility]. When the patient came into emergency room yesterday, WBC count was elevated at 31,000, and we did not have any definite source of infection on basis of his history and there was no urinalysis done, but antibiotic was started in the emergency room without urinalysis and today's urinalysis does indic ate evidence of urinary tract infection and that is what the only known source at this time. We will continue empiric antibiotic ceftriaxone as started in the emergency room. Continue IV fluid per ord er and the patient has responded well to IV fluid. Does not need any vasopressor medication and is a ppropriate for medical floor admission and does not need any ICU level of care. For acute kidney inj ury and volume depletion problem, we will continue IV fluid per order. Monitor renal function and el ectrolytes. No need for any further intervention there. For hypertension, he will not need any anti hypertensive medication at this point, but we will monitor blood pressure at appropriate time. We wi ll restart his blood pressure medications. For hyperlipidemia, we will continue his statin therapy p er order and no need for further intervention. The patient takes anti-platelet therapy which we will continue that per order. DVT prophylaxis will be given per order. Details and plan of treatment di scussed with the patient. We will follow up on culture results and if it comes back positive, then w e will make decision regarding culture specific antibiotic. Total time spent was 90 minutes clement holliday review of yesterday's emergency room visit record, communication with the ER physician yesterday be fore the patient left emergency room, communication with ER physicians today before the patient was s ent to emergency room and after evaluation completed in the emergency room, review of prior hospital record as well as prior office record, and performing today's evaluation and management. JESSICA/TOOL Voice ID: [id number]
[2024-04-20] MEDS: METOPROLOL TAR 25 MG TAB PO SCH (09:00)
[2024-04-20] MEDS: ASPIRIN EC 81 MG TAB PO SCH (10:06)
[2024-04-20] MEDS: TAMSULOSIN 0.4 MG SR CAP PO SCH (10:06)
[2024-04-20] MEDS: CLOPIDOGREL 75 MG TABLET PO SCH (10:06)
[2024-04-20] MEDS: AMLODIPINE 5 MG TAB PO SCH (10:07)
[2024-04-20] MEDS: CEFTRIAXONE 1,000 MG in NA CHLORIDE 0.9% 50 ML IVPB SCH (10:07)
[2024-04-20] MEDS: ENOXAPARIN 30 MG/0.3 ML SQ SCH (10:07)
[2024-04-20 11:41] LABS: Absolute Eosinophils 0.6 K/uL (0-0.5); Absolute Lymphocytes (CBC) 0.9 K/uL (0.7-4.9); Absolute Monocytes 0.7 K/uL (0.1-1.3); Absolute Neutrophil 6.1 K/uL (1.8-8.0); Basophils % 0.3 % (0-1.3); Eosinophils % 7.5 % (0-4.4); Hematocrit 33.7 % (39.6-49.0); Hemoglobin 11.8 g/dL (13.6-17.9); Lymphocytes % 11.2 % (15.3-44.8); MCH 31.2 pg (27.0-35.0); MCHC 35.1 g/dL (32.0-36.0); MCV 88.7 fL (80-100); Monocytes % 8.8 % (3.3-12.3); Neutrophils % 72.2 % (41.7-73.7); Platelets 137 thou/uL (152-406); Red Cell Distribution Width 13.6 % (12.1-15.2)
[2024-04-20 11:57] LABS: AST/SGOT 15 U/L (15-37); Albumin 3.1 g/dL (3.4-5.0); Alkaline Phosphatase 65 U/L (45-117); Anion Gap 8.8 mEq/L (5.0-15.0); BUN Blood Urea Nitrogen 26 mg/dL (7-18); Bicarbonate 22 mEq/L (21-32); Bilirubin Total 0.7 mg/dL (0.2-1.0); Globulin 3.2 g/dL (2.3-3.5); Glomerular Filtration Rate 37 ml/min (=/>90); Glucose Level 142 mg/dL (74-106); Potassium 3.8 mEq/L (3.5-5.1); Protein, Total 6.3 g/dL (6.4-8.2); Sodium Level 138 mEq/L (136-145)
[2024-04-20 12:00] LABS: ALT/SGPT < 14 U/L (16-61)
--- NOTE | 2024-04-20 12:41 | EKG ---
Test Date: 2024-04-19 Test Time: 13:43:37 Plug And Mold Finisher: SHAHRAM MEASUREMENT RESULTS: Intervals: Rate: 65 [place]: 148 QRSD: 102 QT: 442 QTc: 459 [place]: P: 2 [place]: 148 QRS: 102 T: 0 INTERPRETIVE STATEMENTS: Normal sinus rhythm Normal ECG Compared to ECG 04/18/2024 19:05:42 Atrial fibrillation no longer present Ventricular premature complex(es) no longer present ST (T wave) deviation no longer present Electronically Signed On 04-20-24 12:38:41 CDT by Darrel Angeles
--- NOTE | 2024-04-20 20:35 | PN ---
Date of Progress Note: 04/20/2024 Subjective: The patient was seen this morning for followup. No new complaints or problems reported by patient. Denies any complaints overnight. Objective: Vital Signs: Reviewed. HEENT: Unremarkable. Lungs: Clear to auscultation. Heart: Sounds normal. Abdomen: Soft. Bowel sounds normal. No guarding, rigidity, tenderness, distention. Extremities: No leg edema. Laboratory Data: White count 8.3, hemoglobin 11.6, platelets 142. Sodium 139, potassium 3.9, chlori de 112, bicarb 21, BUN 27, creatinine 1.86, glucose 97. Impression: 1.Sepsis. 2.Urinary tract infection. 3.Acute kidney injury. 4.Volume depletion. 5.Anemia, unspecified. 6.Hypertension. 7.Chronic anti-platelet therapy. Plan: We will go ahead and resume patient's anti-platelet therapy per order. Continue current IV fl uid and empiric antibiotic, which is ceftriaxone. Follow up on culture results and we will repeat bl ood work tomorrow morning. Possible discharge to go home tomorrow depending on his condition. We wi ll get a repeat chest x-ray, AP and lateral, for further evaluation regarding abnormality noted on yesterday's chest x-ray. JESSICA/MODL Voice ID: [id number] Report ID: [id number]
[2024-04-20] MEDS: ATORVASTATIN 40 MG TAB PO SCH (20:40)
[2024-04-20 20:58] VITALS: TEMP 97
[2024-04-21 05:25] VITALS: BP 132/61
[2024-04-21 06:56] LABS: Absolute Eosinophils 0.6 K/uL (0-0.5); Absolute Lymphocytes (CBC) 1.2 K/uL (0.7-4.9); Absolute Monocytes 0.9 K/uL (0.1-1.3); Absolute Neutrophil 4.6 K/uL (1.8-8.0); Basophils % 0.6 % (0-1.3); Eosinophils % 7.8 % (0-4.4); Hematocrit 30.8 % (39.6-49.0); Hemoglobin 10.8 g/dL (13.6-17.9); Lymphocytes % 16.6 % (15.3-44.8); MCV 88.6 fL (80-100); MPV 9.8 fL (7.6-11.3); Monocytes % 11.8 % (3.3-12.3); Neutrophils % 63.2 % (41.7-73.7); Nucleated Red Blood Cells % 0.2 % (0-0); Platelets 145 thou/uL (152-406); RBC Red Blood Cell Count 3.47 M/uL (4.33-5.43); Red Cell Distribution Width 13.8 % (12.1-15.2)
[2024-04-21 07:12] LABS: Anion Gap 8.8 mEq/L (5.0-15.0); Potassium 3.8 mEq/L (3.5-5.1)
--- NOTE | 2024-04-21 08:13 | RAD REPORT ---
EXAM DESCRIPTION: Rosio De La Garza And Clyde (2 Views)04/21/2024 7:56 am CLINICAL HISTORY: Sepsis. Abnormal chest x-ray COMPARISON: April 19, 2024 FINDINGS: Chronic elevation left hemidiaphragm with mild scarring or atelectasis left lung base The remainder of the lungs appear clear of acute infiltrate Heart is normal size The previously described small density overlying the right clavicle is no longer present and represen bailey artifact.
--- NOTE | 2024-04-21 20:03 | DS ---
Date of Discharge: 04/21/2024 Disposition: Discharged to go home. Physical Examination: HEENT: Unremarkable. Lungs: Clear to auscultation. Heart: Sounds normal. Abdomen: Soft. Bowel sounds normal. No guarding, rigidity, tenderness, distention. Extremities: No leg edema. Laboratory Data: Upon admission, white count 13.6, hemoglobin 13.8, platelets 171. Today, white cou nt 7.2, hemoglobin 10.8, platelets 145. For chemistry upon admission, sodium 133, potassium 4.2, chl oride 103, bicarb 23, BUN 30, creatinine 2.20, glucose 157, lactic acid 1.8. Liver function tests un remarkable except total bilirubin 1.5. Today, sodium 140, potassium 3.8, chloride 113, bicarb 22, BU N 23, creatinine 1.59, glucose 80. Discharge Medications And Instructions: 1.Continue all prior home medications including antibiotic, Augmentin, [facility]. 2.Take antibiotic with food. 3.Eat yogurt 2 times a day. 4.May use Imodium 2 mg 1 tablet every 6 hours as needed for diarrhea. 5.Drink 60 to 90 ounces of water daily. 6.Follow up at my office next week. 7.May return to work tomorrow. Hospital Course: This is a 73-year-old pleasant male patient, who was admitted to the hospital after he was evaluated at office and then in the emergency room with complaints of feeling weak, tired, an d heart racing feeling. Please see dictated H and P for more information. The patient was admitted to the hospital with sepsis and urinary tract infection and the patient did take antibiotic as given in the emergency room day prior to this hospital admission and urinalysis was not done at that time, so current urinalysis for this hospital admission was collected after antibiotic was initiated in the emergency room and urine culture did not grow any particular bacteria because of this reason. There was no other source of infection. The patient was given IV fluid and IV antibiotic which was ceftri axone. Blood culture remained negative. Overall, his condition has improved. Renal function has im proved and today he was discharged to go home in stable condition with above-mentioned medications an d instructions. His chest x-ray has shown about 11 mm metallic clip type of artifact overlying right clavicle, so repeat chest x-ray PA and lateral was done today. We will follow up on that result. Final Diagnoses: 1.Sepsis. 2.Urinary tract infection. 3.Acute kidney injury. 4.Anemia, unspecified. 5.Chronic kidney disease, stage IIIA. 6.Hypertension. 7.Mixed hyperlipidemia. 8.Peripheral vascular disease. 9.Carotid artery stenosis, bilateral. 10.Chronic obstructive pulmonary disease. 11.Benign prostatic hypertrophy. 12.Impaired fasting glucose. Total time spent 40 minutes. JESSICA/MODL Voice ID: [id number] Report ID: [id number]
== END 2024-04-21 07:59 | disposition home or self-care (01) | DRG 872 ==
LOC: ER 11:37 → ERHOLD 14:30 → 4TH 04-20 00:42
PROVIDERS: ADMIT Internal Medicine; ATTEND Internal Medicine
DX: A41.9 Sepsis, unspecified organism (principal); N39.0 Urinary tract infection, site not specified; N17.9 Acute kidney failure, unspecified; I48.91 Unspecified atrial fibrillation; E86.9 Volume depletion, unspecified; E78.2 Mixed hyperlipidemia; I12.9 Hypertensive chronic kidney disease with stage 1 through stage 4 chronic kidney disease, or unspecified chronic kidney disease; N18.31 Chronic kidney disease, stage 3a; D63.1 Anemia in chronic kidney disease; I73.9 Peripheral vascular disease, unspecified; N40.0 Benign prostatic hyperplasia without lower urinary tract symptoms; I65.23 Occlusion and stenosis of bilateral carotid arteries; J44.9 Chronic obstructive pulmonary disease, unspecified; F17.210 Nicotine dependence, cigarettes, uncomplicated; R73.01 Impaired fasting glucose; Z88.5 Allergy status to narcotic agent; Z79.82 Long term (current) use of aspirin; Z11.52 Encounter for screening for COVID-19; Z90.49 Acquired absence of other specified parts of digestive tract; Z79.899 Other long term (current) drug therapy
CPT/HCPCS: 36415; 71045; 71046; 80048; 80053; 81001; 82947; 83605; 85025; 85610; 85730; 87040; 87086; 87088; 87804; 87811; 93005; 96361; 96365; 99285; J0696; J1650; J7030

== ENCOUNTER 2024-12-10 11:08 | Inpatient (IN) | payer BC ==
[2024-12-10] MEDS ORDERED: MAGNESIUM HYDROXIDE 8% 30 ML PO PRN (14:41)
[2024-12-10] MEDS ORDERED: ACETAMINOPHEN 500 MG TAB PO PRN (14:41)
[2024-12-10] MEDS ORDERED: DOCUSATE NA/SENNA CONC 1 TAB PO PRN (15:34)
[2024-12-10] MEDS ORDERED: TRAMADOL HCL 50 MG TAB PO PRN (15:42)
[2024-12-10 15:58] VITALS: BP 116/52
[2024-12-10] MEDS ORDERED: IPRATROPIUM BROM 0.5MG/2.5ML NEB SCH (19:00)
[2024-12-10] MEDS ORDERED: ARFORMOTEROL TARTRATE 15 MCG/2 ML VIAL.NEB NEB SCH (19:00)
[2024-12-10] MEDS ORDERED: BUDESONIDE 0.5 MG/2 ML NEB NEB SCH (19:00)
[2024-12-10] MEDS ORDERED: SODIUM CHLORIDE 3% INHALATION 4 ML VIAL.NEB IH SCH (19:00)
[2024-12-10] MEDS ORDERED: ACETYLCYST 20% 4 ML VIAL IH SCH (19:00)
[2024-12-10] MEDS ORDERED: APIXABAN 5 MG TABLET PO SCH (20:00)
[2024-12-10] MEDS ORDERED: AMITRIPTYLINE 10 MG TAB PO SCH (21:00)
[2024-12-10] MEDS ORDERED: MELATONIN 3 MG TABLET PO SCH (21:00)
[2024-12-10] MEDS ORDERED: ATORVASTATIN 40 MG TAB PO SCH (21:00)
[2024-12-10] MEDS ORDERED: METOPROLOL TAR 50 MG TAB PO SCH (21:00)
[2024-12-10] MEDS ORDERED: EZETIMIBE 10 MG TAB PO SCH (21:00)
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
[2024-12-11] MEDS ORDERED: AMLODIPINE 10 MG TAB PO SCH (08:00)
[2024-12-11] MEDS ORDERED: ASPIRIN 81 MG CHEWABLE TABLET PO SCH (08:00)
[2024-12-11] MEDS ORDERED: AMIODARONE HCL 200 MG TAB PO SCH (08:00)
[2024-12-11] MEDS ORDERED: TAMSULOSIN 0.4 MG SR CAP PO SCH (08:00)
== END 2024-12-10 18:00 | disposition left against medical advice (07) | DRG 93 ==
LOC: 5TH 14:33
PROVIDERS: ADMIT Psychiatry & Neurology Neurology with Special Qualifications in Child Neurology; ATTEND Psychiatry & Neurology Neurology with Special Qualifications in Child Neurology
DX: I67.1 Cerebral aneurysm, nonruptured (principal); Z53.29 Procedure and treatment not carried out because of patient's decision for other reasons; R53.1 Weakness; R06.02 Shortness of breath; R68.89 Other general symptoms and signs; I12.9 Hypertensive chronic kidney disease with stage 1 through stage 4 chronic kidney disease, or unspecified chronic kidney disease; N18.30 Chronic kidney disease, stage 3 unspecified; I73.9 Peripheral vascular disease, unspecified; G62.9 Polyneuropathy, unspecified; E78.5 Hyperlipidemia, unspecified; K59.00 Constipation, unspecified; G47.00 Insomnia, unspecified; R52 Pain, unspecified; N40.0 Benign prostatic hyperplasia without lower urinary tract symptoms; I25.10 Atherosclerotic heart disease of native coronary artery without angina pectoris; Z98.890 Other specified postprocedural states; Z79.01 Long term (current) use of anticoagulants; Z79.899 Other long term (current) drug therapy; Z86.718 Personal history of other venous thrombosis and embolism; Z95.828 Presence of other vascular implants and grafts
CPT/HCPCS: J7608